=== PATIENT | male | born 1955 | race Two or more races ===

== ENCOUNTER 2023-06-26 12:20 | Outpatient (AMB) | payer OTHER, SELFPAY ==
--- NOTE | 2023-06-26 12:21 | MHC.PC.OV ---
Vital Signs 06/26/23 12:25 Height 5 ft 7 in Weight 171 lb 4 oz BMI 26.8 BP 124/68 Blood Pressure Location Rt brachial Position Sitting Pulse 76 Pulse Source Pulse Oximeter Pulse Oximetry (%) 96 Oxygen Delivery Method Room Air Intake Visit Reasons: Est. Care/HTN Intake Note: Pt is here today to est care HTN Pt rosario had colonscopy at [facility] Allergies No Known Allergies Allergy (Verified 06/26/23 12:44) Medication List - Last Reconciled 06/26/23 by MARLIN Aguila No Known Home Meds Tobacco use date assessed: 06/26/23 Fall risk assessment: No Falls in past year Last assessed Fall Risk: 06/26/23 Dental Screening Dental Screen Date: 06/26/23 Did you have a dental visit in the last 12 months?: Yes Did you have a dental problem in the last 6 months where you did not have access to dental care?: No Was dental information given to patient?: Patient has dentist HPI HPI Comments History of Present Illness Details Patient is a 67-year-old male here to establish care. He has a past medical history significant for prediabetes, obstructive sleep apnea, BPH, hyperlipidemia. He is due for shingles vaccine. Patient is due for the Prevnar 20 PNA vaccine, declining at this time. Patient states that during the cold months he notices that his toes on both feet sometimes get really cold and appear to be purple. Patient denies tingling or numbness. Denies pain but states that he feels like his hands and feet are often cold. States that when he goes to [place] the condition gets better. Has not tried any medications for this issue. [facility] Medical History Prediabetes Social History Housing: House Patient Tobacco Use Status: Never used Tobacco e-Cigarette/Vaping Use: Never Used service: No Current occupational status: employed Cognitive needs: No Hearing needs: No Vision needs: No Questionnaire PHQ-9 Over the last 2 weeks, how often have you been bothered by any of the following problems? 1. Little interest or pleasure in doing things: not at all 2. Feeling down, depressed, or hopeless: not at all 3. Trouble falling or staying asleep, or sleeping too much: not at all 4. Feeling tired or having little energy: not at all 5. Poor appetite or overeating: not at all 6. Feeling bad about yourself - or that you are a failure or have let yourself or your family down: not at all 7. Trouble concentrating on things, such as reading the newspaper or watching television: not at all 8. Moving or speaking so slowly that other people could have noticed. Or the opposite - being so fidgety or restless that you have been moving around a lot more than usual: not at all 9. Thoughts that you would be better off or of hurting yourself in some way: not at all Total score: 0 Depression Screening Interpretation: Negative Depression Screening Done: Yes 49082 - PHQ-9 Billing: Yes Source: Developed by Drs. Clint Hunt, April Tomas, Yung Wade and colleagues, with an educational myla from [employer]. Thrive Questionnaire Date Thrive assessed: 06/26/23 I am a: Patient What is your living situation today?: I have a steady place to live Within the past 12 months, did the food you bought not last and you didn't have the money to get more?: Never true Within the past 12 months, did you worry whether your food would run out before you got money to buy more?: Never true Do you have trouble paying for medicines?: No Do you have trouble getting transportation to medical appointments?: No Do you have trouble paying your heating and electricity bill?: No Do you have trouble taking care of your child, family member or friend?: No Do you have trouble with day-to-day activities such as bathing, preparing meals, shopping, managing finances, etc.?: No Are you currently unemployed and looking for a job?: No Are you interested in more education?: No Please select the resources that you would like help with: None Currently or been in a relationship where the following occur: no concerns reported THRIVE Score: 0 AMBER-7 AMB Questionnaire AMBER-7 Date AMBER - 7 assessed: 06/26/23 Feeling nervous, anxious, or on edge: 0 = Not at all Not being able to stop or control worryin = Not at all Worrying too much about different things: 0 = Not at all Trouble relaxin = Not at all Being so restless that it is hard to sit still: 0 = Not at all Becoming easily annoyed or irritable: 0 = Not at all Feeling afraid as if something awful might happen: 0 = Not at all Total AMBER-7 score (0-4 normal; 5-9 mild; 10-14 moderate; 15-21 severe): 0 Source: Developed by Drs. Clint Hunt, April Toams, Yung Wade and colleagues, with an educational myla from [employer]. AMBER-7 Assessment Billing AMBER-7 Assessment Tool: AMBER-7 Assessment 92362 Review of Systems Const Details: Constitutional : No Weight loss, No Fever, No Chills, No Fatigue, No Malaise Eyes: No Eye Pain, No Swelling, No Redness Cardiovascular : No Chest Pain, No SOB, No Dyspnea on Exertion, No Orthopnea, No Edema, No Palpitations Respiratory : No Cough, No Sputum, No Wheezing Gastrointestinal : No Nausea, No Vomiting, No Diarrhea, No Constipation, No abdominal Pain, No Hematochezia, No Melena Genitourinary : Admits occasional nocturia. Admits erectile dysfunction. Musculoskeletal : No joint pain, No Myalgias, No Joint Swelling Skin : Admits skin on bilateral toes can turn purple in color and feel cold. Neuro : No Weakness, No Numbness, No Dizziness, No Headache Psych : No Anxiety/Panic, No Depression Heme/Lymph: No Bruising, No Bleeding,No Lymphadenopathy Endocrine : No Polyuria, No Polydipsia All other systems reviewed and are negative Physical exam (Primary Care) Vital Signs: Last Vital Signs Pulse 76 06/26/23 12:25 BP 124/68 06/26/23 12:25 Pulse Ox 96 06/26/23 12:25 Oxygen Delivery Method Room Air 06/26/23 12:25 Care Plan Goal for BP management: Vital signs reviewed stable BMI result Body Mass Index 26.8 Tobacco/Smoking Status: Tobacco use Status Tobacco use date assessed 06/26/23 06/26/23 12:24 Patient Tobacco Use Status Never used Tobacco 06/26/23 12:27 e-Cigarette/Vaping Use Never Used 06/26/23 12:27 PHQ-9: PHQ-9 Score PHQ-9: Total score 0 06/26/23 13:37 Depression Screening Interpretation: Negative Thrive Assessment: Date of Thrive Assessment Date Thrive assessed 06/26/23 06/26/23 13:37 Currently or been in a relationship where the following occur: no concerns reported Const Other: Appearance: Alert.? Oriented X3.? No acute distress.? Head: Normocephalic. Patient has tender subcutaneous inflammatory nodule. Appears to have white head. ENT: Pharynx normal. TM not visible due to cerumen impaction. ?Post ear lavage, TMs intact and pearly seals bilaterally. CVS: Normal heart rate and rhythm.? Pulses normal.? Respiratory: No respiratory distress.? Breath sounds normal.? Skin: Patient has cold fingers and tones. Third toe appears to have purple discoloration on left foot.? Extremities: No lower extremity edema.? No calf ttp. 5/5 strength to bilateral upper and lower extremities Back: No midline tenderness, no C-spine tenderness, full range of motion, no CVA tenderness bilaterally Neuro: Oriented X 3.? No motor deficit.? No sensory deficit. CN 2-12 intact Office Procedures Cerumen Removal From which ear canal was the cerumen removed: bilateral Removal: irrigation Notes: patient tolerated procedure well [id number] Irrigation/Lavage Assessment and Plan Assessment & Plan (1) Erectile dysfunction: Comment: Will prescribed sildenafil to be taken as directed. Will order testosterone. Patient has been educated on side effects of the medication Code(s): N52.9 - Male erectile dysfunction, unspecified Qualifiers: Erectile dysfunction type: unspecified Qualified Code(s): N52.9 - Male erectile dysfunction, unspecified (2) Hidradenitis suppurativa: Comment: Patient has subcutaneous nodule of the scalp that is tender. Patient states he has history of the same happening, takes a while for to clear up. Will prescribe patient doxycycline to be taken as directed Code(s): L73.2 - Hidradenitis suppurativa (3) Raynauds phenomenon: Comment: Patient educated on ways to keep his feet warm. Can utilize [id number] foot warmer, educated not to place directly over skin. Will refer condition worsens. Code(s): I73.00 - Raynaud's syndrome without gangrene Qualifiers: Raynaud?s-associated gangrene presence: without gangrene Qualified Code(s): I73.00 - Raynaud's syndrome without gangrene Plan Follow-up in 3 months with physical exam. Orders: Orders Vitamin B6 Today Z13.21 - Encounter for screening for nutritional disorder UA CC w/rflx Micro + Cult Today Z13.89 - Encounter for screening for other disorder Lipid Panel Today Z13.220 - Encounter for screening for lipoid disorders Hemoglobin A1c Today R73.03 - Prediabetes Testosterone, Free/Total Today N52.9 - Male erectile dysfunction, unspecified Vitamin D 25-OH (D2 and D3) Today Z13.21 - Encounter for screening for nutritional disorder Vitamin B12 Today Z13.21 - Encounter for screening for nutritional disorder TSH reflex Free T4 Today Z13.29 - Encounter for screening for other suspected endocrine disorder PSA,Total (Free>4and<10) Today Z12.5 - Encounter for screening for malignant neoplasm of prostate Comprehensive Met. Panel Today Z91.89 - Other specified personal risk factors, not elsewhere classified Complete Blood Count Auto Diff Today Z13.0 - Encounter for screening for diseases of the blood and blood-forming organs and certain disorders involving the immune mechanism Medications: New doxycycline hyclate 100 mg PO DAILY 10 caps 0RF sildenafil administer 30 minutes to 4 hours before activity 50 mg PO DAILY PRN 10 tabs 0RF sexual activity Coding Level of Care Code New Pt Level 3 (33715) Diagnoses Erectile dysfunction, unspecified erectile dysfunction type N52.9 Erectile dysfunction type: unspecified Hidradenitis suppurativa L73.2 Raynaud's phenomenon without gangrene I73.00 Raynaud?s-associated gangrene presence: without gangrene CPT Codes Office Procedure - CPT: 29656-Jtx Irrigation/Lavage ([id number]) Additional Codes AMBER-7 Assessment Billing - AMBER-7 Assessment Tool: AMBER-7 Assessment 37819 ([id number]) Time Spent (min) 35
[2023-06-26 12:25] VITALS: BP 124/68; PULSE 76; O2SAT 96; BMI 26.8
== END 2023-06-26 15:21 | disposition home or self-care (01) ==
PROVIDERS: PCP Internal Medicine; Visit Provider Nurse Practitioner Primary Care
DX: H61.23 Impacted cerumen, bilateral (principal)
CPT/HCPCS: 69209; 99203

== ENCOUNTER 2023-08-04 09:04 | Outpatient (REF) | payer OTHER, SELFPAY ==
[2023-08-04 10:12] LABS: MANUAL DIFF FLAG NO
[2023-08-04 10:26] LABS: Estimated Average Glucose 105 mg/dL; Hemoglobin A1c % 5.3 % (<6.0)
[2023-08-04 10:28] LABS: Basophils Absolute Auto 0.1 X10*3/uL (0.0-0.2); Basophils Percent Auto 1.1 % (0-2); Eosinophils Absolute Auto 0.1 X10*3/uL (0.0-0.4); Eosinophils Percent Auto 0.7 % (0-4); Hematocrit 46.4 % (42.0-52.0); Hemoglobin 15.9 g/dl (14.0-18.0); Imm Gran Abs Auto 0.03 X10*3/uL (0.00-0.03); Imm Gran Pct Auto 0.4 % (0.0-0.4); Lymphocytes Absolute Auto 2.8 X10*3/uL (1.2-4.9); Lymphocytes Percent Auto 39.5 % (20-40); Mean Corpuscular HGB Conc 34.3 g/dl (31.0-36.0); Mean Corpuscular Hemoglobin 30.2 pg (27.0-33.0); Mean Platelet Volume 11.4 fL (9.4-12.4); Monocytes Absolute Auto 0.5 X10*3/uL (0.1-1.2); Monocytes Percent Auto 7.2 % (2-11); Neutrophils Absolute Auto 3.6 x10*3/uL (2.0-8.3); Neutrophils Percent Auto 51.1 % (45-73); Platelet Count 272 X10*3/uL (160-400); Red Blood Count 5.27 X10*6/uL (4.60-5.80)
[2023-08-04 10:39] LABS: Alanine Aminotransferase 23 U/L (0-40); Albumin Level 4.2 g/dL (3.5-5.0); Alkaline Phosphatase 97 U/L (39-117); Anion Gap 10 (12-20); Aspartate Amino Transferase 26 U/L (5-37); Blood Urea Nitrogen 19 mg/dL (9-16); Calcium 9.2 mg/dL (8.4-10.2); Carbon Dioxide 27 mmol/L (22-29); Chloride 107 mmol/L (96-108); Cholesterol 281 mg/dL (<200); Estimated Glomerular Filt Rate > 60; Glucose Random 94 mg/dL (60-115); HDL Cholesterol 51 mg/dL (>40); LDL Cholesterol Calculated 203 mg/dL (<100); Potassium 4.2 mmol/L (3.3-5.1); Sodium 140 mmol/L (135-145); Total Protein 7.4 g/dL (6.5-8.0); Triglycerides 136 mg/dL (<150)
[2023-08-04 10:56] LABS: Appearance Urine Clear; Color Urine Yellow; Glucose Urine UA Negative (Negative); Leukocyte Esterase Urine Negative (Negative); Nitrite Urine Negative (Negative); PH 5.5 (5.0-9.0); Specific Gravity - Urine 1.025 (1.005-1.025); Urine Blood Negative (Negative); Urine Ketones Negative (Negative); Urine Protein Negative (Neg-Trace)
[2023-08-04 10:59] LABS: TSH reflex Free T4 2.27 uIU/mL (0.32-4.0)
[2023-08-04 11:00] LABS: PSA,Total (Free>4and<10) 1.27 ng/mL (0.00-4.00)
[2023-08-04 11:07] LABS: Vitamin B12 657 pg/mL (200-900)
[2023-08-07 16:02] LABS: Vitamin D 25-OH, D2 <4 ng/mL; Vitamin D 25-OH, D3 19 ng/mL; Vitamin D 25-OH, Total 19 ng/mL (30-100)
[2023-08-08 16:28] LABS: Vitamin B6 8.9 ng/mL (2.1-21.7)
[2023-08-10 16:34] LABS: Testosterone, Free 80.7 pg/mL (35.0-155.0); Testosterone, Total 907 ng/dL (250-1100)
== END 2023-08-04 09:05 | disposition home or self-care (01) ==
LOC: HO.HMGCLDS 09:04
PROVIDERS: Visit Provider Nurse Practitioner Primary Care
DX: Z12.5 Encounter for screening for malignant neoplasm of prostate (principal); Z13.220 Encounter for screening for lipoid disorders; Z13.0 Encounter for screening for diseases of the blood and blood-forming organs and certain disorders involving the immune mechanism; Z13.29 Encounter for screening for other suspected endocrine disorder; Z13.21 Encounter for screening for nutritional disorder; Z13.89 Encounter for screening for other disorder; N52.9 Male erectile dysfunction, unspecified; Z91.89 Other specified personal risk factors, not elsewhere classified; R73.03 Prediabetes
CPT/HCPCS: 36415; 80053; 80061; 81003; 82306; 82607; 83036; 84153; 84207; 84402; 84403; 84443; 85025

== ENCOUNTER 2023-09-24 12:10 | Outpatient (AMB) | payer OTHER, SELFPAY ==
--- NOTE | 2023-09-24 12:12 | A.OFFPC_ITS ---
Vital Signs 09/24/23 12:13 Height 5 ft 7 in Weight 171 lb BMI 26.8 BP 122/62 Blood Pressure Location Rt brachial Position Sitting Pulse 93 Pulse Source Pulse Oximeter Pulse Oximetry (%) 96 Oxygen Delivery Method Room Air Intake Visit Reasons: Annual PE Intake Note: Pt is here today for his PE Allergies No Known Allergies Allergy (Verified 09/24/23 12:35) Medication List - Last Reconciled 09/24/23 by MARLIN Aguila No Known Home Meds Tobacco use date assessed: 09/24/23 Fall risk assessment: No Falls in past year Last assessed Fall Risk: 09/24/23 Dental Screening Dental Screen Date: 09/24/23 Did you have a dental visit in the last 12 months?: Yes Did you have a dental problem in the last 6 months where you did not have access to dental care?: No Was dental information given to patient?: Patient has dentist HPI HPI Comments History of Present Illness Details Patient is a 68-year-old male in today for his physical exam. Patient is due for Prevnar 20 vaccine, will get today. Patient is due this year for colonoscopy will refer. He has a past medical history significant: Hyperlipidemia-patient has discontinued his atorvastatin 20 mg p.o. daily. States he would like to bring cholesterol down with diet and exercise only. He does not like to take medication. Will redraw cholesterol levels in 2 months. Hydradentitis Suppurativa- Controlled and diminished after one round of Doxycycline. Erectile dysfunction-controlled. Patient not utilizing medication for this at this time. 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 States that the pain is worse in the morning but gets progressively better during the day. [facility] Medical History Prediabetes Family History Brother Substance use disorder Social History Housing: House Patient Tobacco Use Status: Never used Tobacco e-Cigarette/Vaping Use: Never Used service: No Current occupational status: employed Cognitive needs: No Hearing needs: No Vision needs: Yes Questionnaire PHQ-9 Over the last 2 weeks, how often have you been bothered by any of the following problems? 01409 - PHQ-9 Billing: Patient declined-do not bill Source: Developed by Drs. Clint Hunt, Yung Simpson and colleagues, with an educational myla from [employer]. Thrive Questionnaire Date Thrive assessed: 06/26/23 AMBER-7 AMB Questionnaire AMBER-7 Date AMBER - 7 assessed: 06/26/23 Source: Developed by Drs. Clint Hunt, Yung Simpson and colleagues, with an educational myla from [employer]. AMBER-7 Assessment Billing AMBER-7 Assessment Tool: pt declined-do not bill Review of Systems Const All systems reviewed & are unremarkable except as noted in HPI and below Physical exam (Primary Care) Vital Signs: Last Vital Signs Pulse 93 09/24/23 12:13 BP 122/62 09/24/23 12:13 Pulse Ox 96 09/24/23 12:13 Oxygen Delivery Method Room Air 09/24/23 12:13 Care Plan Goal for BP management: Blood pressure controlled. BMI result Body Mass Index 26.8 Tobacco/Smoking Status: Tobacco use Status Tobacco use date assessed 09/24/23 09/24/23 12:15 Patient Tobacco Use Status Never used Tobacco 09/24/23 12:15 e-Cigarette/Vaping Use Never Used 09/24/23 12:15 Thrive Assessment: Date of Thrive Assessment Date Thrive assessed 06/26/23 09/24/23 12:15 Forms completed: [facility] Time spent: 1-15 minutes, not on file Const Other: Appearance: Alert.? Oriented X3.? No acute distress.? Head: Normocephalic, atraumatic. Eyes: Pupils equal, round and reactive to light.?EOMI, Sclera white. ENT: Pharynx normal.?TM intact and pearly seals. Neck: Normal inspection.? Neck supple.?Full ROM. CVS: Normal heart rate and rhythm.? Pulses normal.? Respiratory: No respiratory distress.? Breath sounds normal.? Abdomen: Soft and nontender.? Skin: Skin warm and dry.? Normal skin color.? Normal skin turgor.? Extremities: No lower extremity edema.? No calf ttp. 5/5 strength to bilateral upper and lower extremities. Back: No midline tenderness, no C-spine tenderness, full range of motion, no CVA tenderness bilaterally Neuro: Oriented X 3.? No motor deficit.? No sensory deficit. CN 2-12 intact Immunizations pneumoc 20-manny conj-dip cr(PF) 0.5 mL IM syringe Performing Provider: MARLIN Aguila Performing Location: [facility] Administered by: MARTHA Romano on 09/24/23 13:01 Dose Route Admin Location Dispensed Lot Number Expiration Date NDC Disk Recordist 0.5 mL IM Left Deltoid 0.5 mL [id number] 01/02/25 5772-1780-88 [id number] VIS Given Date VIS Provided VIS Publication Date 09/24/23 Single Vaccine 21 Eligibility Eligibility Date Funding Source Not VFC Eligible 09/24/23 Private Results Reviewed Results Reviewed: Sodium 140 135-145 mmol/L Potassium 4.2 3.3-5.1 mmol/L CL 107 96-108 mmol/L CO2 27 22-29 mmol/L Gap 10 L 12-20 BUN 19 H 9-16 mg/dL Creat 0.93 0.5-1.4 mg/dL EGFR > 60 NOTE: For -[place]inames[place] individuals, multiply the result by 1.210. Chronic Kidney Disease: Estimated GFR < 60 mL/min/1.73m2 Severe Kidney Disease: Estimated GFR < 15 mL/min/1.73m2 Glucose, Random 94 60-115 mg/dL CA 9.2 8.4-10.2 mg/dL Total Bili 1.0 0.0-1.0 mg/dL AST (GOT) 26 5-37 U/L ALT (GPT) 23 0-40 U/L Protein, Total 7.4 6.5-8.0 g/dL Alb 4.2 3.5-5.0 g/dL Triglyceride 136 <150 mg/dL Desirable Triglyceride: less than 150 mg/dL Borderline High Triglyceride 150-199 mg/dL High Triglyceride: 200-499 mg/dL Very High Triglyceride: greater than or equal to 5OO mg/dL Cholesterol 281 H <200 mg/dL Desirable Cholesterol: less than 200 mg/dL Borderline High Cholesterol: 200-239 mg/dL High Cholesterol: greater than 239 mg/dL LDL Calculated 203 H <100 mg/dL Desirable LDL: less than 100 mg/dL Near Optimal/Above Optimal LDL: 110-129 mg/dL Borderline High LDL: 130-159 mg/dL High LDL: 160-189 mg/dL Very High LDL: greater than or equal to 190 mg/dL HDL 51 >40 mg/dL Desirable HDL: greater than 40 mg/dL Note: This HDL assay may give artificially low results in patients with liver disease. Alk Phos 97 39-117 U/L TSH 2.27 0.32-4.0 uIU/mL Assessment and Plan Assessment & Plan (1) Encounter for routine adult physical exam with abnormal findings: Comment: Will draw labs in 2 months including lipid panel Code(s): Z00.01 - Encounter for general adult medical examination with abnormal findings (2) Osteoarthritis: Comment: Patient will be given diclofenac gel to be administered as prescribed. Code(s): M19.90 - Unspecified osteoarthritis, unspecified site Qualifiers: Osteoarthritis location: elbow Osteoarthritis type: primary Laterality: bilateral Qualified Code(s): M19.021 - Primary osteoarthritis, right elbow; M19.022 - Primary osteoarthritis, left elbow (3) Hyperlipidemia: Comment: Patient has discontinued and refuses to take atorvastatin at this time. Patient has agreed to try fish oil supplement. He is currently on a strict diet and exercise routine. Will redraw lipid panel in 2 months Code(s): E78.5 - Hyperlipidemia, unspecified Qualifiers: Hyperlipidemia type: unspecified Qualified Code(s): E78.5 - Hyperlipidemia, unspecified Plan Will follow-up in 3 months Orders: Orders Lipid Panel 2 Months Z13.220 - Encounter for screening for lipoid disorders Pneumococcal 20 Immunization Today Z23 - Encounter for immunization Referrals Gastroenterology Referral Z12.11 - Encounter for screening for malignant neoplasm of colon Medications: New diclofenac sodium 1% (Aleve (diclofenac)) apply to single elbow, wrist or hand; for hand includes palm/fingers/back of hand 2 grams topical QID 100 grams 0RF Coding Level of Care Code Est Pt Prev Care >65y(25208) Diagnoses Encounter for routine adult physical exam with abnormal findings Z00.01 Primary osteoarthritis of both elbows M19.021; M19.022 Osteoarthritis location: elbow Osteoarthritis type: primary Laterality: bilateral Hyperlipidemia, unspecified hyperlipidemia type E78.5 Hyperlipidemia type: unspecified Additional Codes Vital Signs *Quality* - Time spent: 1-15 minutes, not on file ([id number]) Time Spent (min) 32
[2023-09-24 12:13] VITALS: BP 122/62; PULSE 93; O2SAT 96; BMI 26.8
== END 2023-09-24 15:40 | disposition home or self-care (01) ==
PROVIDERS: PCP Nurse Practitioner Primary Care; Visit Provider Nurse Practitioner Primary Care
DX: Z00.00 Encounter for general adult medical examination without abnormal findings (principal); M19.021 Primary osteoarthritis, right elbow; M19.022 Primary osteoarthritis, left elbow; E78.5 Hyperlipidemia, unspecified
CPT/HCPCS: 1124F; 90471; 90677; 99397

== ENCOUNTER 2023-11-03 11:56 | Outpatient (AMB) | payer OTHER, SELFPAY ==
--- NOTE | 2023-11-03 12:01 | MHC.PC.OV ---
Vital Signs 11/03/23 12:03 Height 5 ft 7 in Weight 169 lb BMI 26.5 BP 128/70 Blood Pressure Location Rt brachial Position Sitting Pulse 65 Pulse Source Pulse Oximeter Pulse Oximetry (%) 97 Oxygen Delivery Method Room Air Intake Visit Reasons: follow up per jl Intake Note: pt is here for f/u appt Allergies No Known Allergies Allergy (Verified 11/03/23 12:02) Medication List - Last Reconciled 11/03/23 by MARLIN Aguila cholecalciferol (vitamin D3) 50 mcg PO DAILY diclofenac sodium 1% (Aleve (diclofenac)) 2 grams topical QID sildenafil 50 mg PO DAILY PRN Tobacco use date assessed: 11/03/23 Dental Screening Dental Screen Date: 09/24/23 HPI HPI Comments History of Present Illness Details Patient is a 68-year-old male in today for follow-up with vitamin-D deficiency and hyperlipidemia. Patient has been utilizing vitamin D3 2000 units for the past 2-3 months. Will redraw levels. Patient had elevated cholesterol and triglyceride levels, has refused atorvastatin and has been utilizing fish oil supplement. Will redraw lipid panel as well. Patient has no other additional complaints. [facility] Medical History (Updated 11/03/23 @ 12:35 by MARLIN Aguila) Prediabetes Surgical History No pertinent past surgical history Family History Brother Substance use disorder Social History Housing: House Patient Tobacco Use Status: Never used Tobacco e-Cigarette/Vaping Use: Never Used service: No Current occupational status: employed Cognitive needs: No Hearing needs: No Vision needs: Yes Questionnaire Thrive Questionnaire Date Thrive assessed: 06/26/23 AMBER-7 AMB Questionnaire AMBER-7 Date AMBER - 7 assessed: 06/26/23 Source: Developed by Drs. Clint Hunt, April Tomas, Yung Wade and colleagues, with an educational myla from [employer]. Review of Systems Const All systems reviewed & are unremarkable except as noted in HPI and below Physical exam (Primary Care) Vital Signs: Last Vital Signs Pulse 65 11/03/23 12:03 BP 128/70 11/03/23 12:03 Pulse Ox 97 11/03/23 12:03 Oxygen Delivery Method Room Air 11/03/23 12:03 BMI result Body Mass Index 26.5 Tobacco/Smoking Status: Tobacco use Status Tobacco use date assessed 11/03/23 11/03/23 12:03 Patient Tobacco Use Status Never used Tobacco 11/03/23 12:03 e-Cigarette/Vaping Use Never Used 11/03/23 12:03 Thrive Assessment: Date of Thrive Assessment Date Thrive assessed 06/26/23 11/03/23 12:03 Const Other: Appearance: Alert.? Oriented X3.? No acute distress.? Head: Normocephalic, atraumatic, no step-offs or deformities CVS: Normal heart rate and rhythm.? Pulses normal.? Respiratory: No respiratory distress.? Breath sounds normal.? Neuro: Oriented X 3.? No motor deficit.? No sensory deficit. CN 2-12 intact Assessment and Plan Assessment & Plan (1) Hyperlipidemia: Comment: Patient has discontinued and refuses to take atorvastatin at this time. Patient has agreed to try fish oil supplement. He is currently on a strict diet and exercise routine. Will redraw lipid panel. Code(s): E78.5 - Hyperlipidemia, unspecified Qualifiers: Hyperlipidemia type: unspecified Qualified Code(s): E78.5 - Hyperlipidemia, unspecified (2) Vitamin D deficiency: Comment: Patient is taking vitamin D3 2000 units per day. Will redraw vitamin-D today. Code(s): E55.9 - Vitamin D deficiency, unspecified Plan will follow up with labs. Orders: Orders UA CC w/rflx Micro + Cult Today Z13.89 - Encounter for screening for other disorder Lipid Panel Today E78.5 - Hyperlipidemia, unspecified Complete Blood Count Auto Diff Today Z13.0 - Encounter for screening for diseases of the blood and blood-forming organs and certain disorders involving the immune mechanism Comprehensive Met. Panel Today Z91.89 - Other specified personal risk factors, not elsewhere classified Vitamin D 25-OH (D2 and D3) Today E55.9 - Vitamin D deficiency, unspecified Vitamin C Today Z13.21 - Encounter for screening for nutritional disorder Medications: New sildenafil administer 30 minutes to 4 hours before activity 50 mg PO DAILY PRN 8 tabs 0RF sexual activity Refilled diclofenac sodium 1% (Aleve (diclofenac)) apply to single elbow, wrist or hand; for hand includes palm/fingers/back of hand 2 grams topical QID 100 grams 0RF Coding Level of Care Code Est Pt Level 3 (05848) Diagnoses Hyperlipidemia, unspecified hyperlipidemia type E78.5 Hyperlipidemia type: unspecified Vitamin D deficiency E55.9 Time Spent (min) 28
[2023-11-03 12:03] VITALS: BP 128/70; PULSE 65; O2SAT 97; BMI 26.5
== END 2023-11-03 15:21 | disposition home or self-care (01) ==
PROVIDERS: PCP Nurse Practitioner Primary Care; Visit Provider Nurse Practitioner Primary Care
DX: E78.5 Hyperlipidemia, unspecified (principal); E55.9 Vitamin D deficiency, unspecified
CPT/HCPCS: 99213

== ENCOUNTER 2023-11-27 06:01 | Outpatient (REF) | payer OTHER, SELFPAY ==
[2023-11-27 10:56] LABS: MANUAL DIFF FLAG NO
[2023-11-27 10:57] LABS: Appearance Urine Turbid; Color Urine Yellow; Glucose Urine UA Negative (Negative); Leukocyte Esterase Urine Negative (Negative); Nitrite Urine Negative (Negative); Specific Gravity - Urine 1.025 (1.005-1.025); Urine Blood Negative (Negative); Urine Ketones Negative (Negative); Urine Protein Negative (Neg-Trace)
[2023-11-27 11:18] LABS: Basophils Absolute Auto 0.1 X10*3/uL (0.0-0.2); Basophils Percent Auto 1.2 % (0-2); Eosinophils Absolute Auto 0.1 X10*3/uL (0.0-0.4); Eosinophils Percent Auto 1.3 % (0-4); Hematocrit 45.1 % (42.0-52.0); Hemoglobin 15.2 g/dl (14.0-18.0); Imm Gran Abs Auto 0.03 X10*3/uL (0.00-0.03); Imm Gran Pct Auto 0.5 % (0.0-0.4); Lymphocytes Absolute Auto 2.3 X10*3/uL (1.2-4.9); Lymphocytes Percent Auto 37.7 % (20-40); Mean Corpuscular HGB Conc 33.7 g/dl (31.0-36.0); Mean Corpuscular Hemoglobin 30.5 pg (27.0-33.0); Mean Corpuscular Volume 90.4 fL (80.0-98.0); Mean Platelet Volume 11.9 fL (9.4-12.4); Monocytes Absolute Auto 0.5 X10*3/uL (0.1-1.2); Monocytes Percent Auto 8.5 % (2-11); Neutrophils Absolute Auto 3.1 x10*3/uL (2.0-8.3); Neutrophils Percent Auto 50.8 % (45-73); Platelet Count 275 X10*3/uL (160-400); Red Blood Count 4.99 X10*6/uL (4.60-5.80); Red Cell Distribution Width 15.8 % (11.0-16.0)
[2023-11-27 11:24] LABS: Alanine Aminotransferase 20 U/L (0-40); Alkaline Phosphatase 92 U/L (39-117); Anion Gap 11 (12-20); Aspartate Amino Transferase 28 U/L (5-37); Bilirubin Total 0.7 mg/dL (0.0-1.0); Blood Urea Nitrogen 24 mg/dL (9-16); Calcium 9.1 mg/dL (8.4-10.2); Carbon Dioxide 28 mmol/L (22-29); Chloride 107 mmol/L (96-108); Cholesterol 255 mg/dL (<200); Estimated Glomerular Filt Rate > 60; Glucose Random 93 mg/dL (60-115); HDL Cholesterol 50 mg/dL (>40); LDL Cholesterol Calculated 188 mg/dL (<100); Potassium 4.2 mmol/L (3.3-5.1); Sodium 142 mmol/L (135-145); Total Protein 6.9 g/dL (6.5-8.0); Triglycerides 88 mg/dL (<150)
[2023-12-03 14:38] LABS: Vitamin D 25-OH, D2 <4 ng/mL; Vitamin D 25-OH, D3 30 ng/mL; Vitamin D 25-OH, Total 30 ng/mL (30-100)
== END 2023-11-27 06:02 | disposition home or self-care (01) ==
LOC: HO.HMGCLDS 06:01
PROVIDERS: Visit Provider Nurse Practitioner Primary Care
DX: Z13.0 Encounter for screening for diseases of the blood and blood-forming organs and certain disorders involving the immune mechanism (principal); E78.5 Hyperlipidemia, unspecified; Z91.89 Other specified personal risk factors, not elsewhere classified; E55.9 Vitamin D deficiency, unspecified; Z13.89 Encounter for screening for other disorder
CPT/HCPCS: 36415; 80053; 80061; 81003; 82306; 85025

== ENCOUNTER 2024-02-04 14:49 | Outpatient (AMB) | payer OTHER, SELFPAY ==
--- NOTE | 2024-02-04 14:54 | MHC.OFFWIV ---
Intake Vital Signs 02/04/24 14:59 Height 5 ft 7 in Weight 167 lb BMI 26.2 BP 150/90 H Blood Pressure Location Rt brachial Position Sitting Pulse 77 Pulse Source Pulse Oximeter Pulse Oximetry (%) 98 Oxygen Delivery Method Room Air Intake Visit Reasons: 1455, EP Heart palpitations Intake Note: Patient here for heart palpitations that have been going on for about 2 weeks. Patient Tobacco Use Status: Never used Tobacco Allergies No Known Allergies Allergy (Verified 02/04/24 14:58) Do you need a note to return to daycare/school/sports/work: No PFSH Medical History Prediabetes Surgical History No pertinent past surgical history Family History Brother Substance use disorder Social History Housing: House Patient Tobacco Use Status: Never used Tobacco e-Cigarette/Vaping Use: Never Used service: No Current occupational status: employed Cognitive needs: No Hearing needs: No Vision needs: Yes Physical Exam Vital Signs: Last Vital Signs Pulse 77 02/04/24 14:59 BP 150/90 H 02/04/24 14:59 Pulse Ox 98 02/04/24 14:59 Oxygen Delivery Method Room Air 02/04/24 14:59 BMI result Body Mass Index 26.2 Assessment & Plan Assessment & Plan Orders: Orders Complete Blood Count Auto Diff Today R00.2 - Palpitations AMB EKG-In Office 02/04/24 R00.2 - Palpitations Basic Metabolic Panel Today R00.2 - Palpitations TSH reflex Free T4 Today R00.2 - Palpitations Coding
[2024-02-04 14:59] VITALS: BP 150/90; PULSE 77; O2SAT 98; BMI 26.2
--- NOTE | 2024-02-04 15:02 | MHC.OFFWIV ---
Intake Vital Signs 02/04/24 14:59 Height 5 ft 7 in Weight 167 lb BMI 26.2 BP 150/90 H Blood Pressure Location Rt brachial Position Sitting Pulse 77 Pulse Source Pulse Oximeter Pulse Oximetry (%) 98 Oxygen Delivery Method Room Air Intake Visit Reasons: EP Heart palpitations Intake Note: 1455 - Pt c/o heart beating hard x 21/2 weeks. Pt denies any sob, chest pain, shoulder/arm pain/disc. Pt speaks in full sentences. Color pink warm and dry, craft. 02 sat 98% on r/a with hr - 83. Provider Angelina Lagunas is aware. Patient Tobacco Use Status: Never used Tobacco Allergies No Known Allergies Allergy (Verified 02/04/24 14:58) HPI EP Heart palpitations HPI Details This note is constructed using voice recognition software. While every effort has been made to ensure accuracy, forest pathology professor errors may have been included. The patient is a 68 year old male who presents to the clinic today with palpitations for the past 2 weeks. He denies chest pain, lightheadedness or dizziness, jaw pain, heart pain, diaphoresis, any recent tick bites. He reports that he is able to work out at the gym and does not have any symptoms with that. His symptoms are worse when he is at rest. He notes that he falls asleep quite frequently when he is unexpected 2. He notes that he wakes up feeling unrested. He wakes up frequently overnight. 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 He had a sleep study many years ago, however he does not know the results of the test and does not recall where he had the test. His primary care provider recently left the practice, so he is unsure whom he has for a primary care provider or if he has wanted all. [facility] Medical History Prediabetes Surgical History No pertinent past surgical history Family History Brother Substance use disorder Social History Housing: House Patient Tobacco Use Status: Never used Tobacco e-Cigarette/Vaping Use: Never Used service: No Current occupational status: employed Cognitive needs: No Hearing needs: No Vision needs: Yes Review of Systems Const All systems reviewed & are unremarkable except as noted in HPI and below Physical Exam Vital Signs: Last Vital Signs Pulse 77 02/04/24 14:59 BP 150/90 H 02/04/24 14:59 Pulse Ox 98 02/04/24 14:59 Oxygen Delivery Method Room Air 02/04/24 14:59 BMI result Body Mass Index 26.2 Const General: cooperative, healthy appearing, comfortable, no acute distress and alert Orientation/consciousness: patient oriented x3 Limitations: no limitations Neck Neck: Yes normal visual inspection, Yes full ROM, Yes no lymphadenopathy and Yes no JVD Carotids: no bruits Resp Effort & Inspection: normal respiratory effort and able to speak in complete sentences Auscultation: clear to auscultation bilaterally Cardio Jugular venous distension: no JVD Palpation: normal PMI Rate: regular rate Heart sounds: S1 normal heart sound present, S2 normal heart sound present, no click, no gallops, no murmurs and no rubs Skin General skin exam: no rashes or lesions noted, elasticity normal and turgor normal Neuro General: patient oriented x3 Psych Appearance: grossly normal Mental Status: mental status grossly normal Speech and movement: Normal speech and movement present Affect: normal affect Results Reviewed Results Reviewed: EKG appears normal sinus rhythm. No ST elevations or depressions. Assessment & Plan Assessment & Plan (1) Palpitations: Code(s): R00.2 - Palpitations Plan: Etiology unclear. In office examination reassuring. EKG appears normal sinus rhythm. Labs ordered to evaluate for contributing factors including infection, anemia, electrolyte abnormality, thyroid involvement. Advised patient to follow up with primary care provider for consideration of Holter monitor should symptoms persist, versus additionally working up for concern for sleep apnea. Advised ER with chest pain, palpitations that do not resolve, or worsening symptoms. Plan See above for full details and plan. Orders: Orders Complete Blood Count Auto Diff Today R00.2 - Palpitations AMB EKG-In Office Today R00.2 - Palpitations Basic Metabolic Panel Today R00.2 - Palpitations TSH reflex Free T4 Today R00.2 - Palpitations Coding Level of Care Code Est Pt Level 4 (29890) Diagnoses Palpitations R00.2
== END 2024-02-04 15:31 | disposition home or self-care (01) ==
PROVIDERS: PCP Nurse Practitioner Primary Care; Visit Provider Registered Nurse
DX: R00.2 Palpitations (principal)

== ENCOUNTER → 2024-02-04 14:49 | Outpatient (BNVA) | payer OTHER, SELFPAY | PROVIDERS: PCP Nurse Practitioner Primary Care | DX: R00.2 Palpitations (principal) | CPT/HCPCS: 99212 ==

== ENCOUNTER 2024-02-05 12:23 | Outpatient (REF) | payer OTHER, SELFPAY ==
[2024-02-05 16:12] LABS: MANUAL DIFF FLAG NO
[2024-02-05 16:19] LABS: Basophils Absolute Auto 0.1 X10*3/uL (0.0-0.2); Eosinophils Absolute Auto 0.1 X10*3/uL (0.0-0.4); Eosinophils Percent Auto 0.6 % (0-4); Hematocrit 45.7 % (42.0-52.0); Hemoglobin 15.3 g/dl (14.0-18.0); Imm Gran Abs Auto 0.03 X10*3/uL (0.00-0.03); Imm Gran Pct Auto 0.4 % (0.0-0.4); Lymphocytes Absolute Auto 2.7 X10*3/uL (1.2-4.9); Lymphocytes Percent Auto 32.3 % (20-40); Mean Corpuscular HGB Conc 33.5 g/dl (31.0-36.0); Mean Corpuscular Hemoglobin 30.6 pg (27.0-33.0); Mean Corpuscular Volume 91.4 fL (80.0-98.0); Mean Platelet Volume 11.7 fL (9.4-12.4); Monocytes Absolute Auto 0.6 X10*3/uL (0.1-1.2); Monocytes Percent Auto 7.1 % (2-11); Neutrophils Absolute Auto 4.9 x10*3/uL (2.0-8.3); Neutrophils Percent Auto 58.6 % (45-73); Platelet Count 266 X10*3/uL (160-400); Red Cell Distribution Width 15.6 % (11.0-16.0); White Blood Count 8.3 X10*3/uL (4.8-10.8)
[2024-02-05 16:31] LABS: Anion Gap 10 (12-20); Blood Urea Nitrogen 21 mg/dL (9-16); Calcium 9.4 mg/dL (8.4-10.2); Carbon Dioxide 28 mmol/L (22-29); Chloride 107 mmol/L (96-108); Estimated Glomerular Filt Rate > 60; Glucose Random 72 mg/dL (60-115); Potassium 4.2 mmol/L (3.3-5.1); Sodium 141 mmol/L (135-145)
[2024-02-05 17:48] LABS: TSH reflex Free T4 1.34 uIU/mL (0.32-4.0)
== END 2024-02-05 12:24 | disposition home or self-care (01) ==
LOC: HO.HMGCLDS 12:23
PROVIDERS: Visit Provider Registered Nurse
DX: R00.2 Palpitations (principal)
CPT/HCPCS: 36415; 80048; 84443; 85025

== ENCOUNTER 2024-03-02 13:51 | Outpatient (AMB) | payer OTHER, SELFPAY ==
[2024-03-02 13:54] VITALS: BP 134/80; PULSE 71; O2SAT 100; BMI 25.8
--- NOTE | 2024-03-02 13:54 | A.OFFPC_ITS ---
Vital Signs 03/02/24 13:54 Height 5 ft 7 in Weight 165 lb BMI 25.8 BP 134/80 Blood Pressure Location Lt brachial Position Sitting Pulse 71 Pulse Source Pulse Oximeter Pulse Oximetry (%) 100 Oxygen Delivery Method Room Air Intake Visit Reasons: transfer from [facility], ?sleep apnea Intake Note: Pt is here today for establish care visit from [facility]. Allergies No Known Allergies Allergy (Verified 03/02/24 13:57) Medication List - Last Reconciled 03/02/24 by Victorina Chris MD cholecalciferol (vitamin D3) 50 mcg PO DAILY diclofenac sodium 1% (Aleve (diclofenac)) 2 grams topical QID fish oil-dha-epa PO sildenafil 50 mg PO DAILY PRN Tobacco use date assessed: 03/02/24 Fall risk assessment: No Falls in past year Last assessed Fall Risk: 03/02/24 Dental Screening Dental Screen Date: 09/24/23 HPI transfer from [facility], ?sleep apnea HPI Details Patient presents reporting intermittent symptoms of palpitations worse when lying down at night, lasting a few seconds, occasionally waking patient up from sleep. He has been under lot of stress recently. Patient exercises at the gym 3 times a week and denies any exercise-induced palpitations chest pain or shortness or breath. His noticed patient having apnea episodes while sleeping. [facility] Medical History Prediabetes Surgical History No pertinent past surgical history Family History Brother Substance use disorder Social History Housing: House Patient Tobacco Use Status: Never used Tobacco e-Cigarette/Vaping Use: Never Used service: No Current occupational status: employed Cognitive needs: No Hearing needs: No Vision needs: Yes Questionnaire PHQ-9 Over the last 2 weeks, how often have you been bothered by any of the following problems? 1. Little interest or pleasure in doing things: not at all 2. Feeling down, depressed, or hopeless: not at all 3. Trouble falling or staying asleep, or sleeping too much: nearly every day 4. Feeling tired or having little energy: not at all 5. Poor appetite or overeating: not at all 6. Feeling bad about yourself - or that you are a failure or have let yourself or your family down: not at all 7. Trouble concentrating on things, such as reading the newspaper or watching television: not at all 8. Moving or speaking so slowly that other people could have noticed. Or the opposite - being so fidgety or restless that you have been moving around a lot more than usual: not at all 9. Thoughts that you would be better off or of hurting yourself in some way: not at all Total score: 3 Depression Screening Interpretation: Negative Depression Screening Done: Yes 72728 - PHQ-9 Billing: Yes Source: Developed by Drs. Clint Hunt, April Tomas, Yung Wade and colleagues, with an educational myla from [employer]. Thrive Questionnaire Date Thrive assessed: 03/02/24 I am a: Patient What is your living situation today?: I have a steady place to live Within the past 12 months, did the food you bought not last and you didn't have the money to get more?: Never true Within the past 12 months, did you worry whether your food would run out before you got money to buy more?: Never true Do you have trouble paying for medicines?: No Do you have trouble getting transportation to medical appointments?: No Do you have trouble paying your heating and electricity bill?: No Do you have trouble taking care of your child, family member or friend?: No Do you have trouble with day-to-day activities such as bathing, preparing meals, shopping, managing finances, etc.?: No Are you currently unemployed and looking for a job?: No Are you interested in more education?: No Please select the resources that you would like help with: None Currently or been in a relationship where the following occur: No concerns reported THRIVE Score: 0 AUDIT C Alcohol Use Questionnaire (AUDIT-C) 1. How often do you have a drink containing alcohol?: Never Total Score: 0 AMBER-7 AMB Questionnaire AMBER-7 Date AMBER - 7 assessed: 03/02/24 Feeling nervous, anxious, or on edge: 0 = Not at all Not being able to stop or control worryin = Not at all Worrying too much about different things: 0 = Not at all Trouble relaxin = Not at all Being so restless that it is hard to sit still: 0 = Not at all Becoming easily annoyed or irritable: 0 = Not at all Feeling afraid as if something awful might happen: 0 = Not at all Total AMBER-7 score (0-4 normal; 5-9 mild; 10-14 moderate; 15-21 severe): 0 Source: Developed by Drs. Clint Hunt, April Tomas, Yung Wade and colleagues, with an educational myla from [employer]. AMBER-7 Assessment Billing AMBER-7 Assessment Tool: AMBER-7 Assessment 74329 Review of Systems Const All systems reviewed & are unremarkable except as noted in HPI and below ENT Reports no additional complaints Card Reports no additional complaints Resp Reports no additional complaints GI Reports no additional complaints Reports no additional complaints Physical exam (Primary Care) Vital Signs: Last Vital Signs Pulse 71 03/02/24 13:54 BP 134/80 03/02/24 13:54 Pulse Ox 100 03/02/24 13:54 Oxygen Delivery Method Room Air 03/02/24 13:54 BMI result Body Mass Index 25.8 Tobacco/Smoking Status: Tobacco use Status Tobacco use date assessed 03/02/24 03/02/24 13:59 Patient Tobacco Use Status Never used Tobacco 03/02/24 13:54 e-Cigarette/Vaping Use Never Used 03/02/24 13:54 PHQ-9: PHQ-9 Score PHQ-9: Total score 3 03/02/24 13:59 Depression Screening Interpretation: Negative Thrive Assessment: Date of Thrive Assessment Date Thrive assessed 03/02/24 03/02/24 13:59 Currently or been in a relationship where the following occur: No concerns reported Const General: no acute distress HENMT Head: Yes normal to inspection Face and sinus: Yes normal facial exam Eyes General: appearance normal, both eyes and all related structures Neck Neck: Yes supple Resp Effort & Inspection: normal respiratory effort Auscultation: clear to auscultation bilaterally Cardio Rhythm: regular rhythm Heart sounds: S1 normal heart sound present and S2 normal heart sound present Coding Level of Care Code Est Pt Level 4 (75696) Diagnoses Palpitations R00.2 HTN (hypertension) I10 Hyperlipidemia, unspecified hyperlipidemia type E78.5 Hyperlipidemia type: unspecified Sleep apnea G47.30 Additional Codes AMBER-7 Assessment Billing - AMBER-7 Assessment Tool: AMBER-7 Assessment 29623 ([id number]) Assessment & Plan Assessment & Plan (1) Palpitations: Code(s): R00.2 - Palpitations Category: Medical Plan: Obtain 3 day Holter and echocardiogram stress management discussed with the patient (2) HTN (hypertension): Code(s): I10 - Essential (primary) hypertension Category: Medical Plan: Start 5 mg of lisinopril continue regular physical activity return for follow-up in 1 month (3) Hyperlipidemia: Comment: Patient has discontinued and refuses to take atorvastatin at this time. Patient has agreed to try fish oil supplement. He is currently on a strict diet and exercise routine. Will redraw lipid panel. Code(s): E78.5 - Hyperlipidemia, unspecified Category: Medical Qualifiers: Hyperlipidemia type: unspecified Qualified Code(s): E78.5 - Hyperlipidemia, unspecified Plan: Diet controlled check lipid profile in 1 month (4) Sleep apnea: Code(s): G47.30 - Sleep apnea, unspecified Category: Medical Plan: Obtain sleep study Orders: Orders ECG 3 day holter monitor Today R00.2 - Palpitations CA echo transthoracic complete Today I10 - Essential (primary) hypertension, R00.2 - Palpitations Comprehensive [place]. Panel Fast 1 Month E78.5 - Hyperlipidemia, unspecified, I10 - Essential (primary) hypertension RT home sleep study Today E78.5 - Hyperlipidemia, unspecified, I10 - Essential (primary) hypertension Lipid Panel 1 Month E78.5 - Hyperlipidemia, unspecified, I10 - Essential (primary) hypertension Medications: New lisinopril 5 mg PO DAILY 90 tabs 0RF
== END 2024-03-02 14:31 | disposition home or self-care (01) ==
LOC: HO.HMCC 13:52
PROVIDERS: PCP Nurse Practitioner Primary Care; Visit Provider Internal Medicine
DX: R00.2 Palpitations (principal); I10 Essential (primary) hypertension; E78.5 Hyperlipidemia, unspecified; G47.30 Sleep apnea, unspecified

== ENCOUNTER → 2024-03-02 13:51 | Outpatient (BNVA) | payer OTHER, SELFPAY | PROVIDERS: PCP Nurse Practitioner Primary Care; Visit Provider Internal Medicine | DX: R00.2 Palpitations (principal); E78.5 Hyperlipidemia, unspecified; I10 Essential (primary) hypertension; G47.30 Sleep apnea, unspecified | CPT/HCPCS: 96127; 99212 ==

== ENCOUNTER → 2024-03-29 13:53 | Outpatient (REF) | payer MEDICARE, SELFPAY ==
--- NOTE | 2024-03-29 13:56 | CA_ITS ---
Transthoracic Echocardiogram Patient (Last, First, Middle): Everett Beltran, Gender: Male Date of : 1955 Age: 68 Procedure Date: 03/29/2024 Procedure Type: Transthoracic Echocardiogram Location: OP Height: 170.18 cm Weight: 74.84 kg BSA: 1.86 m2 Heart Rate: 69 bpm BP: 134 / 76 mmHg Band Booker: SB Referring MD: Victorina Chris MD Symptoms: R00.2 - Palpitations and I10 hypertension Study Quality: Adequate ECG Rhythm: Sinus Conclusions: - The left ventricular systolic function is normal. The calculated ejection fraction is 63% by biplane method. - The basal inferior and basal inferolateral segments are hypokinetic. - No obvious valvular pathology seen on this study. Findings Left Ventricle Normal left ventricular cavity size. The left ventricular systolic function is normal. The calculated ejection fraction is 63% by biplane method. There is no evidence of regional wall motion abnormalities. Evidence suggests grade I (mild) diastolic dysfunction. There is mild septal asymmetric hypertrophy. Wall Motion Rest Echo Findings The basal inferior and basal inferolateral segments are hypokinetic. Right Ventricle Normal right ventricular cavity size and systolic function. Atria Both atria are normal in size. Aortic Valve There is a normal trileaflet aortic valve. There is no aortic valve stenosis. There is no aortic valve regurgitation. Mitral Valve The mitral valve appears normal. There is trace mitral valve regurgitation. There is no mitral valve stenosis. Pulmonic Valve The pulmonic valve is likely normal. Tricuspid Valve Normal tricuspid valve structure. There is trace tricuspid valve regurgitation. There is no evidence of pulmonary hypertension. Great Vessels The asc aorta is normal in size. Venous The inferior vena cava is normal in size and collapses greater than 50% with inspiration. Pericardium/Pleural There is no evidence of pericardial effusion. Prior Study Comparison No prior study available for comparison. Recommendations, Care & Conclusions No obvious valvular pathology seen on this study. Measurements 2D Linear Measurements IVSd: 1.07 0.6-0.9/0.6-1.0 cm LVIDd: 5.35 3.9-5.3/4.2-5.9 cm LVIDd Index: 2.88 2.4-3.2/2.2-3.1 cm/m2 LVIDs: 3.02 2.0-3.6 cm LVPWd: 0.70 0.7-1.1 cm LA Diam: 4.00 2.7-3.8/3.0-4.0 cm LAIDs Index: 2.15 1.5-2.3 cm/m2 LV Mass: 216.13 67-162/88-224 g LV Mass Index: 116.20 43-95/49-115 g/m2 LVOT Diam: 2.00 3.0+(-)1.3 cm 2D Systolic Function EF 4C: 62.90 >55% EF 2C: 64.40 >55% EF BiP: 62.70 >55% Mitral Valve MV Pk E: 0.84 MV PK A: 0.84 MV Decel Time: 238.00 E/A: 1.00 E'Lateral: 5.77 E'Medial: 4.57 E/E' Med: 18.40 E/E' Lat: 14.50 PHT: 70.00 MVA PHT: 3.14 Decel M[place]: 3.53 Aortic Valve AoV Pk Alfred: 1.28 AoV Pk Grad: 7.00 KACEY: 3.00 LVOT LVOT Pk Alfred: 1.21 LVOT Mn Alfred: 0.78 LVOT VTI: 0.24 LVOT Pk Grad: 6.00 LVOT Mn Grad: 3.00 LVOT Diam: 2.00 LVOT Area: 3.14 Diastolic Function MV Pk E: 0.84 MV Pk A: 0.84 E/A: 1.00 E'Medial: 4.57 E/E' Med: 18.40 E' Laterial: 5.77 E/E' Lat: 14.50 Right Ventricle TAPSE (mm): 20.70 TVS' Alfred: 14.80 Tricuspid Valve TR Pk Alfred: 2.40 TR Pk Grad: 23.00 RA Press: 3.00 RVSP: 26.00 Great Vessels Aorta Sinus of Valsalva: 3.80 2.0-3.5 cm Ao Asc: 3.20 2.1-3.4 cm Pulmonary Veins Pulm Vein S/D 1.40 Pulmonary Valve PV Pk Alfred: 1.05 Peak PV Grad: 4.00 Updated in Other Vendor System with Status of Final Lucas Wilkes MD electronically signed on 03/30/2024 11:19:47 AM with status of Final
--- NOTE | 2024-03-29 13:56 | HM_ITS ---
Conclusion: 1. Patient was monitored for total period of 3 days 2. Baseline was normal sinus rhythm with average heart of 76 beats per minute 3. No significant pauses noted 4. Frequent PVCs noted with total burden of 1.2%, mostly isolated 5. Patient marked 1 event correlated with sinus rhythm MTDD
== END ==
LOC: HO.CARD 13:53
PROVIDERS: PCP Internal Medicine; Visit Provider Internal Medicine
DX: R00.2 Palpitations (principal); I10 Essential (primary) hypertension
CPT/HCPCS: 93242; 93306

== ENCOUNTER → 2024-03-29 13:56 | Outpatient (BNV) | payer MEDICARE, SELFPAY | PROVIDERS: PCP Internal Medicine; Visit Provider Internal Medicine | DX: I49.3 Ventricular premature depolarization (principal) | CPT/HCPCS: 93244; 93306 ==

== ENCOUNTER 2024-04-08 10:50 | Outpatient (AMB) | payer OTHER, SELFPAY ==
--- NOTE | 2024-04-08 10:56 | A.OFFPC_ITS ---
Vital Signs 04/08/24 10:57 Height 5 ft 7 in Weight 168 lb BMI 26.3 BP 122/80 Blood Pressure Location Lt brachial Position Sitting Pulse 69 Pulse Source Pulse Oximeter Pulse Oximetry (%) 100 Oxygen Delivery Method Room Air Intake Visit Reasons: 1 month follow up Intake Note: Pt is here today for 1 month follow up visit. Allergies No Known Allergies Allergy (Verified 04/08/24 10:59) Medication List - Last Reconciled 04/08/24 by Victorina Chris MD cholecalciferol (vitamin D3) 50 mcg PO DAILY diclofenac sodium 1% (Aleve (diclofenac)) 2 grams topical QID fish oil-dha-epa PO lisinopril 5 mg PO DAILY sildenafil 50 mg PO DAILY PRN Tobacco use date assessed: 04/08/24 Dental Screening Dental Screen Date: 09/24/23 HPI 1 month follow up HPI Details Pt presents for f/u HTN, stable on Lisinopril. Patient has been exercising 5 times a week and denies chest pain shortness or breath or palpitations PFSH Medical History Prediabetes Surgical History No pertinent past surgical history Family History Brother Substance use disorder Social History Housing: House Patient Tobacco Use Status: Never used Tobacco e-Cigarette/Vaping Use: Never Used service: No Current occupational status: employed Cognitive needs: No Hearing needs: No Vision needs: Yes Questionnaire Thrive Questionnaire Date Thrive assessed: 03/02/24 I am a: Patient What is your living situation today?: I have a steady place to live Within the past 12 months, did the food you bought not last and you didn't have the money to get more?: Never true Within the past 12 months, did you worry whether your food would run out before you got money to buy more?: Never true Do you have trouble paying for medicines?: No Do you have trouble getting transportation to medical appointments?: No Do you have trouble paying your heating and electricity bill?: No Do you have trouble taking care of your child, family member or friend?: No Do you have trouble with day-to-day activities such as bathing, preparing meals, shopping, managing finances, etc.?: No Are you currently unemployed and looking for a job?: No Are you interested in more education?: No Please select the resources that you would like help with: None Currently or been in a relationship where the following occur: No concerns reported THRIVE Score: 0 AMBER-7 AMB Questionnaire AMBER-7 Date AMBER - 7 assessed: 03/02/24 Source: Developed by Drs. Clint Hunt, April Tomas, Yung Wade and colleagues, with an educational myla from [employer]. Review of Systems Const All systems reviewed & are unremarkable except as noted in HPI and below ENT Reports no additional complaints Card Reports no additional complaints Resp Reports no additional complaints GI Reports no additional complaints Physical exam (Primary Care) Vital Signs: Last Vital Signs Pulse 69 04/08/24 10:57 BP 122/80 04/08/24 10:57 Pulse Ox 100 04/08/24 10:57 Oxygen Delivery Method Room Air 04/08/24 10:57 BMI result Body Mass Index 26.3 Tobacco/Smoking Status: Tobacco use Status Tobacco use date assessed 04/08/24 04/08/24 11:01 Patient Tobacco Use Status Never used Tobacco 04/08/24 10:57 e-Cigarette/Vaping Use Never Used 04/08/24 10:57 Thrive Assessment: Date of Thrive Assessment Date Thrive assessed 03/02/24 04/08/24 10:57 Currently or been in a relationship where the following occur: No concerns reported Const General: no acute distress HENMT Mouth: Normal oral and palatal mucosa present Eyes General: appearance normal, both eyes and all related structures Resp Effort & Inspection: normal respiratory effort Auscultation: clear to auscultation bilaterally Cardio Rhythm: regular rhythm Heart sounds: S1 normal heart sound present and S2 normal heart sound present GI Inspection: Yes normal to inspection Palpation (GI): Soft to palpation Percussion: Yes normal to percussion Coding Level of Care Code Est Pt Level 3 (14284) Diagnoses Hyperlipidemia, unspecified hyperlipidemia type E78.5 Hyperlipidemia type: unspecified HTN (hypertension) I10 Assessment & Plan Assessment & Plan (1) Hyperlipidemia: Comment: Patient has discontinued and refuses to take atorvastatin Code(s): E78.5 - Hyperlipidemia, unspecified Category: Medical Qualifiers: Hyperlipidemia type: unspecified Qualified Code(s): E78.5 - Hyperlipidemia, unspecified Plan: Continue low-cholesterol diet check lipid profile in 6 months (2) HTN (hypertension): Code(s): I10 - Essential (primary) hypertension Category: Medical Plan: Continue lisinopril return for physical in 6 months with a fasting labs before Orders: Orders Lipid Panel 6 Months E78.5 - Hyperlipidemia, unspecified, I10 - Essential (primary) hypertension Comprehensive [place]. Panel Fast 6 Months E78.5 - Hyperlipidemia, unspecified, I10 - Essential (primary) hypertension Complete Blood Count Auto Diff 6 Months E78.5 - Hyperlipidemia, unspecified, I10 - Essential (primary) hypertension PSA,Total (Free>4and<10) 6 Months E78.5 - Hyperlipidemia, unspecified, I10 - Essential (primary) hypertension UA w Microscopic 6 Months E78.5 - Hyperlipidemia, unspecified, I10 - Essential (primary) hypertension
[2024-04-08 10:57] VITALS: BP 122/80; PULSE 69; O2SAT 100; BMI 26.3
--- OUTSIDE RECORDS SUMMARY | 2024-04-14 01:45 | XMS_ITS | Data Portability ---
Author Organization [employer] [employer] Address [address] [place] [id number] Care Team Providers Care Model Maker [employer] Name Role Phone HIM CCA OTHER ARIADNA CARUSO Primary Care Provider [phone] Assessment Encounter Date Assessment Date Assessment LastModified by Organization Details LastModified Time 01/17/2024 01/17/2024 I have reviewed and agree with the assessment and plan as documented by the bar catcher. I provided real time medical direction for this encounter and was immediately available to provide additional phone based assistance as needed. History as noted by bar catcher. Pt reports no significant PMH although he has been told that his cholesterol was high in the past. He takes no medications and is a non smoker. Pt reports multiple complaints today: He has noted mild frontal headaches in the AM for about 1 week. They do not last all day and there is no associated dizziness, vision changes or vomiting. Pt also reports that recently, when he is lifting at the gym, he has noted mild upper chest discomfort, that resolves after he is done lifting. He does not experience this discomfort when he is ambulating or exerting himself in other ways, like walking up steps. No associated dyspnea or radiation of the pain. Pt has also noted that his BP has been elevated recently, 153/90-166/104. Pt also reports that at night time, he has intermittently noted that his heart beat is pounding and beating hard but he denies any rapid heart beat. No associated CP, SOB or dizziness with these episodes. On exam, pt appears well. Vitals ok although BP elevated, 145/96. Lungs clear. EKG with sinus rhythm. Normal intervals. No acute ischemia. Impression: Pt with multiple complaints today: 1. mild frontal headaches in the AM that resolve, 2. intermittent pounding heart beat with no associated symptoms, 3. elevated BP, and 4. anterior chest discomfort when lifting at the gym, but not noted at any other times. Discomfort is otherwise non exertional, non pleuritic and non radiating. No SOB. Pt's EKG is reassuring but his BP is moderately elevated today. I discuss with the pt that he needs to call his primary care physician after the weekend, on Thursday 01/18 and arrange for an appointment to discuss all of these issues. He is told that he may need to be started on BP meds and will need further evaluation including: lipid panel, echocardiogram, 14 day patch cardiac technologist, and ETT to assess his recent symptoms. To primary care team: Please call and arrange close follow up for this patient, preferably this coming week, to address his recent multiple complaints and arrange for out patient evaluations. Pt instructed to seek medical attention right away with any worsening or new symptoms, which are reviewed with him in detail [email or web address] Not available 01/17/2024 13:17:07 Plan of Treatment Reminders Order Date Submit Date Provider Last Modified By Organization Details Last Modified Time Details Appointments None recorded. Lab BMP, serum or plasma [email or web address], [address], 13:04:47 Referral None recorded. Procedures None recorded. Surgeries None recorded. Imaging electrocard iogram [email or web address], [address], 14:31:29 Medication Orders None recorded. Patient TargetsNo targets recorded. Patient InstructionsNo instructions recorded. Reason for Referral None Reported. Results Created Date Observation Date Name Description Value Unit Range Abnormal Flag Note LastModifiedBy Organization Detail LastModifiedTime 01/17/20 24 01/17/2024 elect claribelmarvin meenagr am No observ ation record ed. [email or web address] [address], [address], 01/17/2024 13:09:44 Result Notes None recorded. Procedures Surgical History None recorded. Imaging Results Imaging Date Name Status LastModified by Organization Details LastModified Time 01/17/2024 electrocardiogram completed [email or web address] [place], [address], 01/17/2024 13:09:44 Procedure Notes None recorded. Medical Equipment None Reported. Medications Name Sig Start Date Stop Date Status Note LastModified by Organization Details LastModified Time doxycycline hyclate 100 mg capsule active Not Available Not Available Not Available atorvastatin 20 mg tablet active Not Available Not Available Not Available atorvastatin 10 mg tablet active Not Available Not Available Not Available Vitals Date Recorded Body weight Body temperature Heart rate Respiratory rate Oxygen saturation Oxygen saturation in Arterial blood by Pulse oximetry Body height Systolic blood pressure Diastolic blood pressure Provider Name and Address Organization Details Last Updated DateTime 4 21622.6 8 g 98.1 [degF] 88 /min 16 /min 97 % 97 % 170.18 cm 145 mm[Hg] 96 mm[Hg] Not Available [facility] - production 12:51:40 Social History None recorded. Functional Status None recorded. Mental Status None recorded. Family History Nothing Reported. Medical History No medical history recorded. Past Encounters Encounter ID Performer Location Encounter Start Date Encounter Closed Date Diagnosis/Indication Diagnosis SNOMED-CT Code Diagnosis ICD10 Code [id number] Phill You MD Main - [address] [address] 01/17/2024 12:51:26 01/17/2024 18:23:46 Atypical chest pain 556984998 R07.89 Health Concerns Section Related Observation LastModified by Organization Detai ls LastModified Time None Recorded Concern Status LastModified by Organization Details LastModified Time None Recorded Advance Directives Directive None Recorded Payers Encounter Date Sequence Insurance Name Policy Number Policy Vigil Covered Member ID Vigil Member ID Guarantor Name 01/17/2024 1 [facility] - DOS ON OR AFTER 2022 - MEDICARE [place]VANTAGE [place] ([place]PLACEMENT/ADV ANTAGE - PPO) Everett Beltran [id number] Everett Beltran Notes Date Note Type Note Provider Name and Address Organization Details Recorded Time 01/17/2024 text/html This was a supervised home visit with bar catcher Corey Roman. [facility] Nurse Triage Notes (Stephanie Peralta): Chief Complaints: Hypertension, Tachycardia/Palpitat ions Allergies: No Known Comments: Member calls in c/o heart palpitations and high blood pressure. CRC RN verified identity via name/. Confirmed phone number. This morning felt like his heart was beating fast, checked his BP which was 153/90, pulse 79. Last BP 166/104 at 11am. He does not take medication for BP. Has been having mild headaches on and off for 1 week. Denies dizziness and lightheadedness. Denies SOB. Reports some chest pain but feels it is muscular and related to recently going to the gym. Also comes and goes. Does not feel like it is concerning. Denies any numbness or tingling in his arms/legs/feet/hands . No confusion or slurred speech. Requesting visit for assessment. Education provided on expected response time and the member was advised to monitor reported s/s. Member in agreement to seek emergency treatment if needed. Kera Peralta RN Pull Worker Organization Information for Corey Roman Legal Name: [facility] Address: [address] [place] [address], [place] [address], Wealth Management Advisor: Vaughn Zhong MD CLIA No.: [id number] Pull Worker POC Test Results from Corey Roman EKG (12:31:56) EKG test performed. Attachments uploaded as part of this test result can be found under Documents section. epoc (12:39:31) pH: 7.43 pH units pCO2: 37.6 mmHg pO2: 64.7 mmHg Na: 141 mmol/L K: 4.2 mmol/L iCa: 1.11 mmol/L Cl: 106 mmol/L TCO2: 25.0 mEq/L Hct: 48 % Hb: 16.4 g/dL Glu: 104 mg/dL Lac: 0.9 mmol/L Cr: 1.0 mg/dL BUN: 24 mg/dL A .................... .................... .................... .................... .................... .................... .................... . Pull Worker Note From Corey Roman: Pt reporting mild WILEY in the morning, CP when lifting weights only and feeling like his heart is beating ? hard? (not fast or irregular) at night for approx one week. Pt denies any associated SOB, MOREIRA, lightheadedness, dizziness, f/n/v/d. Pt is alert, NAD. VSS. Afebrile. Non focal neuro exam. Normal gait. Lungs CTA. Benign ABD exam. No LE edema. Unremarkable EKG and POC labs uploaded. Pt instructed to contact PCP? s office on Friday to schedule appt for further testing. Red flags reviewed. .................... .................... .................... .................... .................... .................... .................... . Disposition: Fulfilled Phill You MD [address] [facility],[address], [place], [address], [employer] - KumbuyaSONNY TRUJILLO 01/17/2024 13:21:09
--- OUTSIDE RECORDS SUMMARY | 2024-04-14 01:45 | XMS_ITS | Continuity of Care Document ---
Author Organization [employer] Address [address] [place] [phone] Care Team Providers Care Bat Person Name Role Phone HIM CCA OTHER ARIADNA CARUSO Primary Care Provider [phone] Assessment Encounter Date Assessment Date Assessment LastModified by Organization Details LastModified Time 01/17/2024 01/17/2024 I have reviewed and agree with the assessment and plan as documented by the test lead. I provided real time medical direction for this encounter and was immediately available to provide additional phone based assistance as needed. History as noted by test lead. Pt reports no significant PMH although he [...] lipid panel, echocardiogram, 14 day patch cardiac sonographer, and ETT to assess his recent symptoms. [...] recorded. Lab BMP, serum or plasma [email or web address], [address], 13:04:47 Referral None recorded. Procedures None recorded. Surgeries None recorded. Imaging electrocard iogram [email or web address], [address], 14:31:29 Medication Orders None recorded. Patient TargetsNo targets recorded. Patient InstructionsNo instructions recorded. Reason for Referral None Reported. Results Created Date Observation Date Name Description Value Unit Range Abnormal Flag Note LastModifiedBy Organization Detail LastModifiedTime 01/17/20 24 01/17/2024 elect jeanie robledogr am No observ ation record ed. [email or web address] [address], [address], 01/17/2024 13:09:44 Result Notes None recorded. Procedures Surgical History None recorded. Imaging Results Imaging Date Name Status LastModified by Organization Details LastModified Time 01/17/2024 electrocardiogram completed [email or web address] [address] [place], [address], 01/17/2024 13:09:44 Procedure Notes None recorded. Medical [...] Address Organization Details Last Updated DateTime 4 70730.6 8 g 98.1 [degF] 88 /min 16 [...] Diagnosis/Indication Diagnosis SNOMED-CT Code Diagnosis ICD10 Code [id number] Phill You MD Main - [address] [address] 01/17/2024 12:51:26 01/17/2024 18:23:46 Atypical chest pain 352118048 R07.89 Health Concerns Section Related Observation LastModified by Organization Detai ls LastModified Time None Recorded Concern Status LastModified by Organization Details LastModified Time None Recorded Payers Encounter Date Sequence Insurance Name Policy Number Policy Vigil Covered Member ID Vigil Member ID Guarantor Name 01/17/2024 1 [facility] - DOS ON OR AFTER 2022 - MEDICARE [place]VANTAGE [place]/ADV ANTAGE - PPO) Everett Beltran [id number] Everett Beltran Notes Date Note Type Note Provider Name and Address Organization Details Recorded Time 01/17/2024 text/html This was a supervised home visit with test lead Corey Roman. CRC Nurse Triage Notes (Stephanie [...] emergency treatment if needed. Kera Peralta RN Psychological Operations Officer Organization Information for Corey Roman Legal Name: [employer] Address: [address] [place] [address], Credit Collections Specialist: Vaughn Zhong MD [facility] No.: [id number] Psychological Operations Officer POC Test Results from Corey Roman EKG [...] .................... .................... .................... .................... .................... .................... . Psychological Operations Officer Note From Corey Roman: Pt reporting mild [...] . Disposition: Fulfilled Phill You MD [address] [facility],[address], [place], [address], [employer] - [employer]NY TRUJILLO 01/17/2024 13:21:09
--- OUTSIDE RECORDS SUMMARY | 2024-04-14 01:45 | XMS_ITS | Data Portability ---
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 Plan of Treatment Reminders Order Date Submit Date Provider Last Modified By Organization Details Last Modified Time Details Appointments None recorded. Lab lipid panel, serum 2021 022 [facility], [address], [address], [place], [address], 12:28:49 HbA1c (hemoglobin A1c), blood 2021 022 [facility], [address], [address], [place], [address], 10:27:51 CMP, serum or plasma 2021 022 [facility], [address], [address], [place], [address], 12:28:47 PSA, serum or plasma - Screening 2021 022 [facility], [address], [address], [place], [address], 12:42:37 urinalysis, complete 2022 023 [facility], [address], [address], [place], [address], 3 15:39:14 CMP, serum or plasma 2022 023 [facility], [address], [address], [place], [address], 3 10:47:03 lipid panel, serum 2022 023 [facility], [address], [address], [place], [address], 3 10:47:04 HbA1c (hemoglobin A1c), blood 2022 023 [facility], [address], [address], [place], [address], 3 13:03:17 PSA, serum or plasma - Screening 2022 023 [facility], [address], [address], [place], [address], 3 10:57:32 Referral dermatologi referral - for eval of pt with non healing groin lesion 2020 021 [email or web address] Molly Tarango MD, [address] [facility] , [place], [address], 1 09:53:19 nutritionis t/dietitian referral 2021 022 Not available 2 15:45:56 nutritionis t/dietitian referral 2022 023 [email or web address] Not available 3 16:18:37 Procedures None recorded. Surgeries None recorded. Imaging XR, thoracic spine, 4 or more view - for eval of thoracic radicular pain, rule out lower thoracic disc disease. 2020 021 [email or web address] Not available 1 10:10:10 CT, chest, w/o contrast - rule out pulmonary/c hest wall etiology for persistent lower thoracic pain. 2020 021 [facility] ([facility]), [address], [place], [address], 1 12:44:48 XR, shoulder, 2 or more view - for eval of left shoulder protuberanc e near AC joint 2022 023 [facility], [address], [place], [address], 3 08:29:33 Medication Orders clotrimazol e-betametha sone 1 %-0.05 % topical cream 2022 023 [facility] #[id number], [address], [place], [id number], 3 16:15:08 clobetasol 0.05 % topical cream 2022 023 [facility] #[id number], [address], [place], [id number], 3 16:01:38 meloxicam 15 mg tablet 2022 023 [facility] #[id number], [address], [place], [id number], 3 16:01:36 Patient TargetsNo targets recorded. Patient Instructions Encounter Date Encounter Id Patient Instructions Last Modified By Organization Details Last Modified Time 01/31/2021 [id number] rec. laxaclear (generic for miralax at [employer]) 1/2 - 1 scoop in 8 oz. of any fluid 1-2x/daily. ??rec. eat less bananas and drink more water. rec. eat more grapes, oranges, and pears. in future, if no bm x 3 days, then use 1-2 tabs of senna or dulcolax as needed. pmadden Not available 01/31/2021 17:07:00 Patient will follow up and keep appointment as scheduled. -- consider ugis vs ct a/p if no sig improvement pmadden Not available 01/31/2021 17:08:47 06/12/2021 [id number] prediabetes: care instructions awychowski Not available 06/12/2021 14:58:30 sleep apnea: care instructions awychowski Not available 06/12/2021 14:58:30 Prostate Cancer Screening awychowski Not available 06/12/2021 14:58:30 When You Want to Lose Weight: Care Instructions [email or web address] Not available 06/12/2021 14:58:30 Nutrition Referral and Weight Management Follow-up Information awychowski Not available 06/12/2021 14:58:30 08/26/2022 [id number] athlete's foot: care instructions awychowski Not available 08/26/2022 16:10:17 prediabetes: care instructions awychowski Not available 08/26/2022 16:10:17 Prostate Cancer Screening awychowski Not available 08/26/2022 16:10:17 When You Want to Lose Weight: Care Instructions awychowski Not available 08/26/2022 16:10:17 Nutrition Referral and Weight Management Follow-up Information awychowski Not available 08/26/2022 16:10:17 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 for N on-healing pigmented skin lesion for eval of pt with non healing groin lesion Referring Physician: [facility], Encounter Date: 12/18/2020 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 DIAGN OSTIC USE: The Ameri can Diabe vamsi Assoc iatio n (ADA) and the World Healt h Organ izati on (WHO) recom mend the use of HbA1c to diagn ose diabe vamsi using a thres hold of 6.5%. Patie nts who have an HbA1c betwe en 5.7% and 6.4% are consi dered at incre ased risk for devel oping diabe vamsi in the futur e. CAUTI ON: False ly low HbA1c resul ts may be obser antonio in patie nts with hemol ytic anemi a, homoz ygous forms of abnor mal hemog lobin (e.g. SS, CC, SC), pregn sadie, recen t blood loss or hemog lobin F great er than 7%. Fruct osami ne may be used as an alter noemí test in these cases . REFER ENCE: ADA: Stand ards of Medic al Care in Diabe vamsi 2019, The Journ al of Clini day[place] and Appli ed Resea rch and Educa tion Volum e 43, Suppl ement 1 Not Available [facility] [address] [place], [address], 06/20/2021 10:27:51 06/20/19 22 06/20/2021 COMPR EHENS JANET METAB OLIC PANL glucose 97 mg/dL (70-99 ) Not Available [facility] [address] [place], [address], 06/20/2021 12:28:47 06/20/19 22 06/20/2021 COMPR EHENS JANET METAB OLIC PANL BUN 18 mg/dL (8-23) Not Available [facility] [address] [place], [address], 06/20/2021 12:28:47 06/20/19 22 06/20/2021 COMPR EHENS JANET METAB OLIC PANL creatinine 0.9 mg/dL (0.7-1 .2) Not Available [facility] [address] [place], [address], 06/20/2021 12:28:47 06/20/19 22 06/20/2021 COMPR EHENS JANET METAB OLIC PANL sodium 140 mmol/ L (133-1 45) Not Available [facility] [address] [place], [address], 06/20/2021 12:28:47 06/20/19 22 06/20/2021 COMPR EHENS JANET METAB OLIC PANL potassium 4.9 mmol/ L (3.6-5 .2) Not Available [facility] [address] [place], [address], 06/20/2021 12:28:47 06/20/19 22 06/20/2021 COMPR EHENS JANET METAB OLIC PANL chloride 104 mmol/ L (98-10 7) Not Available [facility] [address] [place], [address], 06/20/2021 12:28:47 06/20/19 22 06/20/2021 COMPR EHENS JANET METAB OLIC PANL bicarbonate 28 mmol/ L (22-29 ) Not Available [facility] [address] [place], [address], 06/20/2021 12:28:47 06/20/19 22 06/20/2021 COMPR EHENS JANET METAB OLIC PANL anion gap 8 (4-17) Not Available [facility] [address] [place], [address], 06/20/2021 12:28:47 06/20/19 22 06/20/2021 COMPR EHENS JANET METAB OLIC PANL albumin 4.5 gm/dL (3.4-4 .8) Not Available [facility] [address] [place], [address], 06/20/2021 12:28:47 06/20/19 22 06/20/2021 COMPR EHENS JANET METAB OLIC PANL calcium 8.8 mg/dL (8.6-1 0.5) Not Available [facility] [address] [place], [address], 06/20/2021 12:28:47 06/20/19 22 06/20/2021 COMPR EHENS JANET METAB OLIC PANL bilirubin,to jordon 0.7 mg/dL (0-1.2 ) Not Available [facility] [address] [place], [address], 06/20/2021 12:28:47 06/20/19 22 06/20/2021 COMPR EHENS JANET METAB OLIC PANL total protein 6.6 gm/dL (6.2-8 .2) Not Available [facility] [address] [place], [address], 06/20/2021 12:28:47 06/20/19 22 06/20/2021 COMPR EHENS JANET METAB OLIC PANL Ag ratio 2.1 Not Available [facility] [address] [place], [address], 06/20/2021 12:28:47 06/20/19 22 06/20/2021 COMPR EHENS JANET METAB OLIC PANL AST 26 U/L (0-40) Not Available [facility] [address] [place], [address], 06/20/2021 12:28:47 06/20/19 22 06/20/2021 COMPR EHENS JANET METAB OLIC PANL alk phos 102 U/L (40-12 9) Not Available [facility] [address] [place], [address], 06/20/2021 12:28:47 06/20/19 22 06/20/2021 COMPR EHENS JANET METAB OLIC PANL ALT 21 U/L (0-41) Not Available [facility] [address] [place], [address], 06/20/2021 12:28:47 06/20/19 22 06/20/2021 COMPR EHENS JANET METAB OLIC PANL estimated GFR creatinine 91 mL/mi n/1.7 3_M2 Not Available [facility] [address] [place], [address], 06/20/2021 12:28:47 06/20/19 22 06/20/2021 LIPID PANEL cholesterol, total 263 mg/dL (<200) high Not Available [facility] [address] [place], [address], 06/20/2021 12:28:49 06/20/19 22 06/20/2021 LIPID PANEL triglyceride 98 mg/dL (<150) Not Available [facility] [address] [place], [address], 06/20/2021 12:28:49 06/20/19 22 06/20/2021 LIPID PANEL HDL chol 52 mg/dL (>39) Not Available [facility] [address] [place], [address], 06/20/2021 12:28:49 06/20/19 22 06/20/2021 LIPID PANEL LDL cholesterol, calculated 191 mg/dL (0-130 ) high Not Available [facility] [address] [place], [address], 06/20/2021 12:28:49 06/20/19 22 06/20/2021 LIPID PANEL non HDL cholesterol (calc) 211 mg/dL (<160) high Not Available [facility] [address] [place], [address], 06/20/2021 12:28:49 06/20/19 22 06/20/2021 PSA SCREE N PSA 1.5 NG/mL (0-4) TEST PERFO RMED USING THE HALIE ELECT HALIE MILLU MINES CENCE TOTAL PSA ASSAY . PSA VALUE S OBTAI HUSAM WITH OTHER ASSAY METHO DS OR KITS CANNO T BE USED INTER MCDONNELL EABLY . Not Available [facility] [address] [place], [address], 06/20/2021 12:42:37 09/03/19 23 09/02/2022 COMPR EHENS JANET METAB OLIC PANL glucose 102 mg/dL (70-99 ) high Not Available [facility] [address] [place], [address], 09/02/2022 10:47:02 09/03/19 23 09/02/2022 COMPR EHENS JANET METAB OLIC PANL BUN 21 mg/dL (8-23) Not Available [facility] [address] [place], [address], 09/02/2022 10:47:02 09/03/19 23 09/02/2022 COMPR EHENS JANET METAB OLIC PANL creatinine 0.9 mg/dL (0.7-1 .2) Not Available [facility] [address] [place], [address], 09/02/2022 10:47:02 09/03/19 23 09/02/2022 COMPR EHENS JANET METAB OLIC PANL sodium 142 mmol/ L (133-1 45) Not Available [facility] [address] [place], [address], 09/02/2022 10:47:02 09/03/19 23 09/02/2022 COMPR EHENS JANET METAB OLIC PANL potassium 4.5 mmol/ L (3.6-5 .2) Not Available [facility] [address] [place], [address], 09/02/2022 10:47:02 09/03/19 23 09/02/2022 COMPR EHENS JANET METAB OLIC PANL chloride 106 mmol/ L (98-10 7) Not Available [facility] [address] [place], [address], 09/02/2022 10:47:02 09/03/19 23 09/02/2022 COMPR EHENS JANET METAB OLIC PANL bicarbonate 28 mmol/ L (22-29 ) Not Available [facility] [address] [place], [address], 09/02/2022 10:47:02 09/03/19 23 09/02/2022 COMPR EHENS JANET METAB OLIC PANL anion gap 8 (4-17) Not Available [facility] [address] [place], [address], 09/02/2022 10:47:02 09/03/19 23 09/02/2022 COMPR EHENS JANET METAB OLIC PANL albumin 4.3 gm/dL (3.4-4 .8) Not Available [facility] [address] [place], [address], 09/02/2022 10:47:02 09/03/19 23 09/02/2022 COMPR EHENS JANET METAB OLIC PANL calcium 8.8 mg/dL (8.6-1 0.5) Not Available [facility] [address] [place], [address], 09/02/2022 10:47:02 09/03/19 23 09/02/2022 COMPR EHENS JANET METAB OLIC PANL bilirubin,to jordon 0.3 mg/dL (0-1.2 ) Not Available [facility] [address] [place], [address], 09/02/2022 10:47:02 09/03/19 23 09/02/2022 COMPR EHENS JANET METAB OLIC PANL total protein 6.4 gm/dL (6.2-8 .2) Not Available [facility] [address] [place], [address], 09/02/2022 10:47:02 09/03/19 23 09/02/2022 COMPR EHENS JANET METAB OLIC PANL Ag ratio 2.0 Not Available [facility] [address] [place], [address], 09/02/2022 10:47:02 09/03/19 23 09/02/2022 COMPR EHENS JANET METAB OLIC PANL AST 25 U/L (0-40) Not Available [facility] [address] [place], [address], 09/02/2022 10:47:02 09/03/19 23 09/02/2022 COMPR EHENS JANET METAB OLIC PANL alk phos 96 U/L (40-12 9) Not Available [facility] [address] [place], [address], 09/02/2022 10:47:02 09/03/19 23 09/02/2022 COMPR EHENS JANET METAB OLIC PANL ALT 28 U/L (0-41) Not Available [facility] [address] [place], [address], 09/02/2022 10:47:02 09/03/19 23 09/02/2022 COMPR EHENS JANET METAB OLIC PANL estimated GFR creatinine 95 mL/mi n/1.7 3_M2 Creat inine based estim ated glome rular filtr ation (eGFR ) in adult s is calcu lated using the Natio nal Kidne y Found ation recom rakesh d 2020 CKD-E PI equat ion. Estim ates GFR from serum creat inine , age and sex. Not Available [facility] [address] [place], [address], 09/02/2022 10:47:02 09/03/19 23 09/02/2022 LIPID PANEL cholesterol, total 238 mg/dL (<200) high Not Available [facility] [address] [place], [address], 09/02/2022 10:47:04 09/03/19 23 09/02/2022 LIPID PANEL triglyceride 108 mg/dL (<150) Not Available [facility] [address] [place], [address], 09/02/2022 10:47:04 09/03/19 23 09/02/2022 LIPID PANEL HDL chol 50 mg/dL (>39) Not Available [facility] [address] [place], [address], 09/02/2022 10:47:04 09/03/19 23 09/02/2022 LIPID PANEL LDL cholesterol, calculated 166 mg/dL (0-130 ) high Not Available [facility] [address] [place], [address], 09/02/2022 10:47:04 09/03/19 23 09/02/2022 LIPID PANEL non HDL cholesterol (calc) 188 mg/dL (<160) high Not Available [facility] [address] [place], [address], 09/02/2022 10:47:04 09/03/19 23 09/02/2022 PSA SCREE N PSA 1.4 NG/mL (0-4) TEST PERFO RMED USING THE HALIE ELECT Sesamea MILLU MINES CENCE TOTAL PSA ASSAY . PSA VALUE S OBTAI HUSAM WITH OTHER ASSAY METHO DS OR KITS CANNO T BE USED INTER MCDONNELL EABLY . Not Available [facility] [address] [place], [address], 09/02/2022 10:57:32 09/03/1909/02/2022 HEMOG LOBIN A1C hemoglobin A1C 5.8 % (4.0-5 .6) high MONIT ORING : In known diabe tic patie nts, hemog lobin A1c targe ts shoul d be discu ssed with healt h care provi jenn. DIAGN OSTIC USE: The Ameri can Diabe vamsi Assoc iatio n (ADA) and the World Healt h Organ izati on (WHO) recom mend the use of HbA1c to diagn ose diabe vamsi using a thres hold of 6.5%. Patie nts who have an HbA1c betwe en 5.7% and 6.4% are consi dered at incre ased risk for devel oping diabe vamsi in the futur e. CAUTI ON: False ly low HbA1c resul ts may be obser natonio in patie nts with hemol ytic anemi a, homoz ygous forms of abnor mal hemog lobin (e.g. SS, CC, SC), pregn sadie, recen t blood loss or hemog lobin F great er than 7%. Fruct osami ne may be used as an alter noemí test in these cases . REFER ENCE: ADA: Stand ards of Medic al Care in Diabe vamsi 2019, The Journ al of Clini day[place] and Appli ed Resea rch and Educa tion Volum e 43, Suppl ement 1 Not Available [facility] [address] [place], [address], 09/02/2022 13:03:17 09/03/19 23 09/02/2022 LAB ONLY URINA LYSIS appear/color LIGHT YELLO W CLEAR Not Available [facility] [address] [place], [address], 09/02/2022 15:39:14 09/03/19 23 09/02/2022 LAB ONLY URINA LYSIS sp. gravity 1.025 (1.002 -1.030 ) Not Available [facility] [address] [place], [address], 09/02/2022 15:39:14 09/03/19 23 09/02/2022 LAB ONLY URINA LYSIS urine pH 6.5 (5.0-8 .0) Not Available [facility] [address] [place], [address], 09/02/2022 15:39:14 09/03/19 23 09/02/2022 LAB ONLY URINA LYSIS urine albumin TRACE (neg) abnormal Not Available [facility] [address] [place], [address], 09/02/2022 15:39:14 09/03/19 23 09/02/2022 LAB ONLY URINA LYSIS urine glucose NEGATI VE (neg) Not Available [facility] [address] [place], [address], 09/02/2022 15:39:14 09/03/19 23 09/02/2022 LAB ONLY URINA LYSIS urine ketones NEGATI VE (neg) Not Available [facility] [address] [place], [address], 09/02/2022 15:39:14 09/03/19 23 09/02/2022 LAB ONLY URINA LYSIS urine bilirubin NEGATI VE (neg) Not Available [facility] [address] [place], [address], 09/02/2022 15:39:14 09/03/19 23 09/02/2022 LAB ONLY URINA LYSIS urine hemoglobin NEGATI VE (neg) Not Available [facility] [address] [place], [address], 09/02/2022 15:39:14 09/03/19 23 09/02/2022 LAB ONLY URINA LYSIS urine nitrite NEGATI VE (neg) Not Available [facility] [address] [place], [address], 09/02/2022 15:39:14 09/03/19 23 09/02/2022 LAB ONLY URINA LYSIS urine leukocyte NEGATI VE (neg) Not Available [facility] [address] [place], [address], 09/02/2022 15:39:14 09/03/1909/02/2022 LAB ONLY URINA LYSIS urobilinogen NORMAL mg/dL (norm) Not Available [facility] [address] [place], [address], 09/02/2022 15:39:14 09/03/19 23 09/02/2022 LAB ONLY URINA LYSIS urine WBCs <1 /hpf (0-5) Not Available [facility] [address] [place], [address], 09/02/2022 15:39:14 09/03/1909/02/2022 LAB ONLY URINA LYSIS urine RBCs 2 /hpf (0-3) Not Available [facility] [address] [place], [address], 09/02/2022 15:39:14 09/03/19 23 09/02/2022 LAB ONLY URINA LYSIS mucus SLIGHT /lpf Not Available [facility] [address], [place], [address], 09/02/2022 15:39:14 12/19/19 21 12/18/2020 XR, thora cic spine , 3 view Thorac ic Spine 3 Views Reason : chest pain COMPAR JOSUE: Correl ation with chest radiog raph 021. FINDIN GS: No bone lesion s or fractu res. Mild degene rative change s are noted with small margin al osteop hytes at severa l levels . Surgic al clips are again noted in the left upper abdome n. IMPRES ASHLEY: Mild degene rative change s but no acute findin gs. WSN: [id number] Orderi ng Physic padmini: Dexter Swartz Dictat ed By: Ashley Conley MD Dictat ed Date/T al: 4:49 pm Review ed By: Ashley Conley MD Signed By: Ashley Conley MD Signed Date/T al: 4:49 pm Transc ribed By: OLIVERIO Transc ribed Date/T al: 4:48 pm Patien t Class: Outpat ient [facility] ([facility]) [address] , [place], [address], 01/31/2021 16:39:05 01/11/20 21 01/10/2021 CT, chest , w/o contr ast CT Chest W/O Contra st INDICA TION: CHEST WALL PAIN. COMPAR JOSUE: Chest radiog raphs, most recent 021. TECHNI QUE: Helica l CT scan of the chest withou t IV contra st, format roa in 3 planes . Weight -based protoc ol was perfor med using automa tic exposu re contro l. CTDIvo l Body: 9.83 mGy, DLP Body: 353 mGy*cm . FINDIN GS: LINES AND TUBES: None. TRACHE A AND BRONCH I: Patent withou t eviden ce of trache al or endobr onchia l lesion . LUNGS AND PLEURA : No suspic ious pulmon berta nodule s. There is a 0.5 cm nodule along the access ory fissur e in the superi or segmen t left lower lobe, sagitt al image 88. There is a calcif ied granul elizabeth at the right lung base. AORTA: No eviden ce of aortic aneury sm. MEDIAS TINUM and ALFREDO: No hemato ma, mass or adenop athy. No esopha geal abnorm alitie s. HEART: Normal cardia c size. No perica rdial effusi on. Minima l hall ry artery calcif icatio ns. CHEST WALL SOFT TISSUE S: Normal . DIAPHR AGM AND UPPER ABDOME N: Status post splene ctomy. Surgic al clips in the automatic tire tester ior spleni c fossa. Stomac h is debris -fille d likely a recent meal, colon is stool- filled sugges ting consti pation . BONES: Mild degene rative change s of the visual ized spine. No acute abnorm ality. IMPRES ASHLEY: Unrema rkable . I have person ally review ed the images and I agree with this report . WSN: [id number] Orderi ng Physic padmini: Dexter Swartz Dictat ed By: Oswald Ashley DO Dictat ed Date/T al: 3:20 pm Review ed By: Mikaela Jenkins MD Signed By: Mikaela Jenkins MD Signed Date/T al: 3:25 pm Transc ribed By: MARCELLAB Transc ribed Date/T al: 2:44 pm Patien t Class: Outpat ient [facility] (Outpt [facility]) [address] , [place], [address], 01/31/2021 16:39:05 09/03/19 23 09/02/2022 XR, shoul jenn, 2 or more view Should er Min 2 Views Left, 2 views Reason : protub erance near ac joint COMPAR JOSUE: None. FINDIN GS: No fractu re or disloc ation. No arthri tic change of the glenoh umeral joint. Normal AC joint and portio ns of the clavic le includ ed on the exam. No calcif icatio n of the rotato r cuff. A tiny BB is noted just superi or to the left AC joint. IMPRES ASHLEY: No acute osseou s abnorm ality is seen involv ing the left should er. WSN: [id number] Orderi ng Physic padmini: Dexter Swartz Dictat ed By: Trenton Mckinley MD, V Dictat ed Date/T al: 8:26 am Review ed By: Hailey marie MD, Trenton De La Paz Signed By: Trenton Mckinley MD, V Signed Date/T al: 8:26 am Transc ribed By: OLIVERIO Transc ribed Date/T al: 8:24 am Patien t Class: Outpat ient [facility] (Outpt Imaging) [address] [place] [address], [address], 09/20/2022 22:28:29 Result Notes None recorded. Problems Name Problem SNOMED Code Status Onset Date Resolution Date Notes Provider Name and Address Organization Details Recorded Time Hypercholester olemia 17849852 Active 2018 Dexter Bay MD [address] [address], [place], [address], [facility] 9 12:52:54 Benign prostatic hyperplasia 306362702 Active 2019 Dexter Bay MD [address] [address], [place], [address], [facility] 0 06:48:15 History of calculus of kidney 878489305 Active 2019 Dexter Bay MD [address] [address], [place], [address], [facility] 0 06:48:26 Body mass index 25-29 - overweight 099900402 Active 2019 Dexter Bay MD [address] [place], [address], [facility] 0 15:05:10 Impaired fasting glycemia 500899554 Active 2019 Dexter Bay MD [address] [facility] [address], [place], [address], [facility] 0 20:27:30 Hepatitis C antibody detected 252552019 Active 2019 Dexter Bay MD [address] [facility] [address], [place], [address], [facility] 0 20:35:12 Albuminuria 858752199 Active 2020 Dexter Bay MD [address] [facility] [address], [place], [address], [facility] 1 12:01:29 Gallstone 495143907 Active 2020 Dexter Bay MD [address] [facility] [address], [place], [address], [facility] 1 13:29:38 Chest wall pain 142572397 Active 2020 Dexter Bay MD [address] [facility] [address], [place], [address], [facility] 1 07:11:55 History of splenectomy 394758163 Active 2020 Dexter Bay MD [address] [facility] [address], [place], [address], [facility] 1 15:49:20 Obstructive sleep apnea syndrome 71168908 Active 2021 Dexter Bay MD [address] [facility] [address], [place], [address], [facility] 2 14:57:39 Prediabetes [id number] Active 2022 Detxer Bay MD [address] [facility] [address], [place], [address], [facility] 3 07:25:19 Problem Notes None recorded. Procedures Surgical History Date Name Laterality Status Provider Name and Address Organization Details Recorded Time 02/08/20 20 cardiovascular stress testing completed Dexter Bay MD [address] [address], [place], [address], [facility] 02/11/2020 14:08:48 02/11/20 15 Shoulder joint surgery completed Dexter Bay MD [address] [address], [place], [address], [facility] 12/23/2019 14:43:33 01/29/20 14 Colonoscopy completed Dexter Bay MD [address] [address], [place], [address], [facility] 12/23/2019 14:43:52 splenectomy completed Dexter Bay MD [address] [address], [place], [address], [facility] 12/23/2019 06:49:28 Knee Surgery completed Dexter Bay MD [address], [address], [facility] 12/23/2019 14:42:55 Hernia Repair completed Jackie George [facility], [place], operated by [facility] 06/12/2021 14:03:53 Imaging Results Imaging Date Name Status LastModified by Organiz ation Details LastModified Time 12/18/2020 XR, thoracic spine, 3 view completed [facility] [address] [place], [place], [id number], 01/31/2021 16:39:05 01/10/2021 CT, chest, w/o contrast completed [facility] (Outpt Imaging) [address] [place], [address], 01/31/2021 16:39:05 09/02/2022 XR, shoulder, 2 or more view completed [facility] (Outpt Imaging) [address], [place], [address], 09/20/2022 22:28:29 Procedure Notes None recorded. Medical Equipment None Reported. Allergies No known drug allergies Medications Name Sig Start Date Stop Date Status Note LastModified by Organization Details LastModified Time prednisone 10 mg tablet 08/26 completed Not Available Not Available Not Available ofloxacin 0.3 % eye drops 08/26 completed Not Available Not Available Not Available valacyclovi r 1 gram tablet 08/26 completed Not Available Not Available Not Available meloxicam 15 mg tablet Take 1 tablet every day by oral route for 15 days. active Not Available Not Available No t Available clobetasol 0.05 % topical cream APPLY A THIN LAYER TO THE AFFECTED AREA(S) BY TOPICAL ROUTE 2 TIMES PER DAY active Not Available Not Available No t Available clotrimazol e-betametha sone 1 %-0.05 % topical cream APPLY TO THE AFFECTED AND SURROUNDI NG AREAS OF SKIN BY TOPICAL ROUTE 2 TIMES PER DAY IN THE MORNING AND EVENING FOR 2 WEEKS active Not Available Not Available No t Available ketoconazol e 2 % topical cream APPLY TO THE AFFECTED AREA(S) BY TOPICAL ROUTE ONCE DAILY ON FEET NEEDED active Not Available Not Available No t Available dietary supplement 08/26 completed Not Available Not Available Not Available Aleve 220 mg capsule Take 1 capsule every 12 hours by oral route as needed. 06/12 completed Not Available Not Available Not Available Vitals Date Recorded Body height Body mass index (BMI) Body weight Heart rate Oxygen saturation Oxygen saturation in Arterial blood by Pulse oximetry Body temperature Systolic blood pressure Diastolic blood pressure Provider Name and Address Organization Details Last Updated DateTime 1 170.18 cm 26.2 kg/m2 00698.9 3 g 66 /min 98 % 98 % 98.42 [degF] 120 mm[Hg] 72 mm[Hg] Maci Rodrigues MA [facility] [place] 1 15:30:26 Date Recorded Body height Body mass index (BMI) Body weight Heart rate Oxygen saturation Oxygen saturation in Arterial blood by Pulse oximetry Body temperature Systolic blood pressure Diastolic blood pressure Provider Name and Address Organization Details Last Updated DateTime 1 170.18 cm 26.2 kg/m2 60378.9 3 g 65 /min 99 % 99 % 98.42 [degF] 123 mm[Hg] 70 mm[Hg] Maci Rodrigues [facility] 1 16:15:50 Date Recorded Body height Body mass index (BMI) Body weight Heart rate Oxygen saturation Oxygen saturation in Arterial blood by Pulse oximetry Body temperature Systolic blood pressure Diastolic blood pressure Provider Name and Address Organization Details Last Updated DateTime 2 170.18 cm 26.2 kg/m2 77867.3 3 g 103 /min 96 % 96 % 97.7 [degF] 117 mm[Hg] 73 mm[Hg] Jackie Ru[facility]cox [facility] 2 14:14:40 Date Recorded Heart rate Provider Name an d Address Organization Details Last Updated DateTime 06/12/2021 88 /min Dexter Cho i, MD [address], [address], [facility] 06/21/2021 06:56:35 Date Recorded Body height Body mass index (BMI) Body weight Heart rate Oxygen saturation Oxygen saturation in Arterial blood by Pulse oximetry Body temperature Systolic blood pressure Diastolic blood pressure Provider Name and Address Organization Details Last Updated DateTime 3 170.18 cm 26.5 kg/m2 90281.1 1 g 70 /min 96 % 96 % 98 [degF] 138 mm[Hg] 89 mm[Hg] Jackie [facility] [place] 3 15:17:42 Date Recorded Body height Body mass index (BMI) Body weight Heart rate Oxygen saturation Oxygen saturation in Arterial blood by Pulse oximetry Body temperature Systolic blood pressure Diastolic blood pressure Provider Name and Address Organization Details Last Updated DateTime 3 170.18 cm 26.3 kg/m2 96478.5 2 g 71 /min 97 % 97 % 98.5 [degF] 143 mm[Hg] 88 mm[Hg] Radha Guerra MA [facility] [place] 3 15:32:29 Social History Question Answer Notes LastModified by Organizat ion Details LastModified Time Tobacco Smoking Status [facility] 13:12:31 Do You Have An Advance Directive? Yes Information not available 06/12/2021 What Is Your Level Of Alcohol Consumption? None Information not available 12/23/2019 Is Blood Transfusion Acceptable In An Emergency? No Information not available 06/12/2021 What Is Your Level Of Caffeine Consumption? Moderate Coffee 2 Cups Daily Information not available 06/12/2021 How Much Tobacco Do You Chew? None Information not available 12/23/2019 In The 14 Days Before Symptom Onset, Have You Had Close Contact With A Laboratory-confi rmed COVID-19 While That Case Was Ill? No Information not available 06/12/2021 In The 14 Days Before Symptom Onset, Have You Had Close Contact With A Person Who Is Under Investigation For COVID-19 While That Person Was Ill? No Information not available 06/12/2021 Have You Been To An Area Known To Be High Risk For COVID-19? No Information not available 06/12/2021 Are You Currently Employed? Yes Information not available 06/12/2021 What Type Of Diet Are You Following? REGULAR Information not available 12/23/2019 Which Illicit Or Recreational Drugs Have You Used? None Information not available 12/23/2019 Do You Or Have You Ever Used E-cigarettes Or Vape? Never Used Electronic Cigarettes Information not available 06/12/2021 What Is Your Occupation? [employer] Information not available 06/12/2021 Live Alone Or With Others? With Others ([place]), And [employer] Information not available 08/26/2022 Do You Take Precautions To Prevent Distracted Driving? Yes Information not available 12/23/2019 How Often Do You Need To Have Someone Help You When You Read Instructions, Pamphlets, Or Other Written Material From Your Doctor Or Pharmacy? Never Information not available 12/23/2019 Have You Served In The ? No Information not available 12/23/2019 Have You Or Anyone In Your Household Had Any Of The Following Symptoms In The Last 14 Days: Sore Throat, Cough, Chills, Body Aches For Unknown Reasons, Shortness Of Breath For Unknown Reasons, Loss Of Smell, Loss Of Taste, Fever At Or Greater Than 100 Degrees Fahrenheit? No Information not available 12/23/2019 Are You Or Anyone In Your Household A Health Care Provider Or Emergency Responder? No Information not available 12/23/2019 To The Best Of Your Knowledge Have You Been In Close Proximity To Any Individual Who Tested Positive For COVID-19? No Information not available 12/23/2019 *AWV ONLY* Are You Presently Prescribed Opioid Medication By PCP Or Specialist? If YES -Provider Assess The Benefit For Other, Non-opioid Pain Therapies Instead, Even If The Patient Does Not Have OUD But Is Possibly At Risk. No Information not available 12/23/2019 Have You Recently Traveled To A COVID-19 High Risk Area Or Gathering In The Last 10 Days? No Information not available 10/17/2020 What Was The Date Of Your Most Recent Tobacco Screening? 08/26/2022 Information not available 08/26/2022 How Many Children Do You Have? 2 2 Daughters Information not available 12/23/2019 Do You Use Protection During Sex? No Information not available 06/12/2021 Do You Use Your Seat Belt Or Car Seat Routinely? Yes Information not available 06/12/2021 Seat Belts Used Routinely Yes Information not available 06/12/2021 Are You Sexually Active? Yes Information not available 12/23/2019 Smoke Alarm In Home Yes Information not available 06/12/2021 Do You Have Smoke And Carbon Monoxide Detectors In Your Home? Yes Information not available 06/12/2021 At What Age Did You Start Smoking Tobacco? 0 Information not available 12/23/2019 Are You Passively Exposed To Smoke? No Information not available 12/23/2019 Do You Or Have You Ever Used Smokeless Tobacco? Never Used Smokeless Tobacco Information not available 08/31/2019 How Much Tobacco Do You Smoke? No Information not available 12/23/2019 Do You Use Sunscreen Routinely? No Information not available 12/23/2019 How Many Years Have You Smoked Tobacco? 0 Information not available 12/23/2019 Sex: Unknown Functional Status Question Answer Note LastModified by Organizat ion Details LastModified Time Are you able to walk? YESWOREST Information not available 06/12/2021 Are you able to care for yourself? Yes Information not available 08/31/2019 What is your exercise level? Occasional Information not available 12/23/2019 Mental Status None recorded. Family History Relationship Description Onset Age of this Age Resolved Age Notes LastModified by Organization Details LastModified Time Father Heart disease 60 94 [email or web address] available 12/22 14:32:37 Brother Heart disease [email or web address] Not available 2019 14:06:59 Daughter Well adult Not avail able 06/12/2021 14:01:43 Daughter Well adult Not avail able 06/12/2021 14:01:43 Sister Well adult Not availab le 06/12/2021 14:01:43 Sister Well adult Not availab le 06/12/2021 14:01:43 Mother Neoplasm of stomach [email or web address] Not available 2021 14:01:43 Medical History Condition Response Arthritis Y Allergies Y Immunizations Vaccine Type Date Status Provider Name and Address Organization Details Recorded Time COVID-19, mRNA, LNP-S, PF, 30 mcg/0.3 mL dose 08/12/2020 completed SUBHASH [place] [facility] 08/26/2022 15:12:05 COVID-19, mRNA, LNP-S, PF, 30 mcg/0.3 mL dose 09/02/2020 SUBHASH [place] [facility] 08/26/2022 15:12:05 COVID-19, mRNA, LNP-S, PF, 30 mcg/0.3 mL dose 05/08/2021 completed SUBHASH [place], [facility] 06/12/2021 14:11:45 Tdap 12/23/2019 completed SUBHASH Polo, [facility] 12/23/2019 16:09:45 pneumococcal polysaccharide PPV23 12/23/2019 completed SUBHASH Polo, [facility] 12/23/2019 16:09:46 Influenza, split virus, quadrivalent, PF 01/24/2020 completed Fermin Powers PA-C [address] [address], [place], [address], [facility] 01/24/2020 16:21:39 Influenza, split virus, quadrivalent, PF 06/12/2021 completed SUBHASH [place], [facility] 06/12/2021 16:04:25 Past Encounters Encounter ID Performer Location Encounter Start Date Encounter Closed Date Diagnosis/Indication Diagnosis SNOMED-CT Code Diagnosis ICD10 Code [id number] Dexter Bay MD Main Office [address] [facility] [address] [place] [address] 08/31/2019 11:56:03 08/31/2019 14:09:18 Tinea pedis 6598925 B35.3 [id number] Dexter Bay MD Main Office [address] [facility] [address] [place] [address] 12/23/2019 13:56:53 12/23/2019 15:32:56 Adult health examination 823791226 Z00.00 Administra tion of viral vaccine 50332043 Z23 Varicella vaccination 68 670394 Z23 Hepatitis C screening 41 3129506 Z11.59 Body mass index 25-29 - overweight 463469104 E66.3 Z68.25 Hypercholesterolemia 136 33352 E78.2 History of calculus of kidney 647578579 Z87.442 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 9 Easy bruising 910541780 R58 Obstructiv e sleep apnea syndrome 26512370 G47.33 [id number] Fermin Powers PA-C Main Office [address] [address] [place] [address] 01/24/2020 15:44:23 01/25/2020 10:51:34 Needs influenza immunization 655808942 Z23 Abdominal bloating 22253 9008 R14.0 [id number] Dexter Bay MD Main Office [address] [address] [place] [address] 02/15/2020 14:46:14 02/15/2020 16:06:22 Hepatitis C antibody detected 353095028 Z86.19 Hyperlipidemia 65451824 E78.5 Impaired f asting glycemia 102195464 R73.01 [id number] Dexter Bay MD Main Office [address] [address] [place] [address] 10/17/2020 12:41:14 10/17/2020 13:23:15 Anterior chest wall pain 396577055 R07.89 Albuminuria 713858366 R8 0.9 [id number] Dexter Bay MD Main Office [address] [address] [place] [address] 12/18/2020 14:45:26 12/18/2020 16:06:11 Chest wall pain 243011479 R07.89 Non-healin g pigmented skin lesion 484730834 L98.8 [id number] Fermin Powers PA-C Main Office [address] [address] [place] [address] 01/31/2021 15:48:47 02/02/2021 11:15:28 Chest wall pain 131277058 R07.89 Abdominal pain 03031166 R10.9 Chronic constipation 236 917311 K59.09 [id number] Dexter Bay MD Main Office [address] [address] [place] [address] 06/12/2021 14:00:48 06/12/2021 15:10:06 Adult health examination 103521973 Z00.00 Body mass index 25-29 - overweight 551706144 E66.3 Z68.26 Impaired f asting glycemia 218161859 R73.01 Hypercholesterolemia 136 41686 E78.2 History of splenectomy 627112069 Z90.81 Varicella vaccination 68 186576 Z23 Gallstone 626341525 K80. 20 Obstructiv e sleep apnea syndrome 17352841 G47.33 Screening for malignant neoplasm of colon 964965194 Z12.11 Nocturia 561014013 R35.1 Needs infl uenza immunization 813828858 Z23 Hepatitis C antibody detected 671359989 Z86.19 [id number] Dexter Bay MD Main Office [address] [facility] [address] [place] [address] 08/26/2022 15:02:03 08/26/2022 16:18:37 Adult health examination 727759198 Z00.00 Administra tion of pneumococcal vaccine 06072360 Z23 Varicella vaccination 68 366612 Z23 Body mass index 25-29 - overweight 434457958 E66.3 Z68.26 Nocturia 459531537 R35.1 History of splenectomy 779113206 Z90.81 Tinea pedis 8914600 B35. 3 Albuminuria 031073038 R8 0.9 Hypercholesterolemia 136 02919 E78.2 Impaired f asting glycemia 013507404 R73.01 Disorder of shoulder 118 735556 M75.92 [id number] Triston Robert MD Main Office [address] [facility] [address] [place] [address] 10/22/2022 14:53:40 10/22/2022 16:08:53 Contact dermatitis caused by urushiol from [place] poison oswald 673575032 L25.5 Pain of ri ght knee joint 7422638873 80890 M25.561 Health Concerns Section Related Observation LastModified by Organization Detai ls LastModified Time None Recorded Concern Status LastModified by Organization Details LastModified Time None Recorded Advance Directives Directive Y: Payers Encounter Date Sequence Insurance Name Policy Number Policy Vigil Covered Member ID Vigil Member ID Guarantor Name 12/18/2020 1 [facility] Everett Beltran [id number] Everett Beltran 01/31/2021 1 [facility] Everett Beltran [id number] Everett Beltran 06/12/2021 1 [facility] Everett Beltran [id number] Everett Beltran 08/26/2022 1 [facility] Everett Beltran [id number] Everett Beltran 10/22/2022 1 [facility] Everett Beltran [id number] Everett Beltran Notes Date Note Type Note Provider Name and Address Organization Details Recorded Time 12/18/2020 text/html Skin LesionRepor ora bypatient.Location:[facility] in Quality:painful; sore Duration:started 1 year(s) agoNotes:Reports a chronic hyper pigmented lesion groin area for a long time. Was adjacent to other lesions that he states were biopsied in the past but not able to report result and no records forwarded here. Pt unable to identify the under water assistant either. Patient presents with > 6 months of bilateral lower chest wall pain. States that it is present on awakening in the AM. No correlation to exertion. Denies dyspnea or worsening with deep breathing. Chest xray and abdominal u/s were normal. Labs unremarkable as well. Dexter Bay MD [address] [address], [place], [address], [facility] 12/19/2020 07:16:19 01/31/2021 text/html here for f/u flip st wall (rib) pain - rev. last ov note - pcp ordered tests - here to discuss results -- unremarkable ct x debri-filled stomach and constipation pt states moves bowels qod, no straining no abd pain, brbpr on no meds for the rib pain - has suffered x 5-6 months had u/s in 7.21 - rev. results also has early satiety - small meals frequently occ/rare htbn no h/o DM no h/o psychiatric meds Fermin Powers PA-C [address] [address], [place], [address], [facility] [place] 01/31/2021 17:30:07 06/12/2021 text/html Generic HPI TemplateReported bypatient.Notes:Here for physical, feels well. Seeing dentist and ophtho regularly. Dexter Bay MD [address] [address], [place], [address], [facility] 06/21/2021 07:02:20 08/26/2022 text/html Generic HPI TemplateReported bypatient.Notes:Here for physical, feels well. Seeing dentist and ophtho regularly. Dexter Bay MD [address] [address], [place], [address], [facility] 09/13/2022 07:57:40 10/22/2022 text/html He was working o [employer] more than a week ago and developed an itchy rash on his arms and legs about 1 week ago. It does not involve his face. Has pain in his right knee area for a couple of weeks. He denies any injury but spends a lot of time on his knees for work. The pain is at the back/medial aspect. He has not taken any meds. No prior problem. It hurts most when flexing past 90 degrees. Triston Robert MD [address] [address], [place], [address], [facility] 10/22/2022 18:05:14
== END 2024-04-08 11:43 | disposition home or self-care (01) ==
PROVIDERS: PCP Nurse Practitioner Primary Care; Visit Provider Internal Medicine
DX: E78.5 Hyperlipidemia, unspecified (principal); I10 Essential (primary) hypertension

== ENCOUNTER → 2024-04-08 10:50 | Outpatient (BNVA) | payer OTHER, SELFPAY | PROVIDERS: PCP Nurse Practitioner Primary Care; Visit Provider Internal Medicine | DX: E78.5 Hyperlipidemia, unspecified (principal); I10 Essential (primary) hypertension | CPT/HCPCS: 99212 ==

== ENCOUNTER → 2024-04-14 13:56 | Outpatient (REF) | payer OTHER, SELFPAY ==
--- OUTSIDE RECORDS SUMMARY | 2024-04-15 02:39 | XMS_ITS | Data Portability ---
Author Organization [employer] Address [address] [place] [address] Care Team Providers [employer]icket Sales Name Role Phone HIM CCA OTHER ARIADNA CARUSO Primary Care Provider [phone] Assessment Encounter Date Assessment Date Assessment LastModified by Organization Details LastModified Time 01/17/2024 01/17/2024 I have reviewed and agree with the assessment and plan as documented by the director hedis. I provided real time medical direction for this encounter and was immediately available to provide additional phone based assistance as needed. History as noted by director hedis. Pt reports no significant PMH although he [...] lipid panel, echocardiogram, 14 day patch cardiac care unit nurse, and ETT to assess his recent symptoms. [...] BMP, serum or plasma [email or web address], [address], 13:04:47 Referral None recorded. Procedures None recorded. Surgeries None recorded. Imaging electrocard iogram [email or web address], [address], 14:31:29 Medication Orders None recorded. Patient TargetsNo targets recorded. Patient InstructionsNo instructions recorded. Reason for Referral None Reported. Results Created Date Observation Date Name Description Value Unit Range Abnormal Flag Note LastModifiedBy Organization Detail LastModifiedTime 01/17/20 24 01/17/2024 elect claribelmarvin meenagr am No observ ation record ed. [email or web address] [address], [address], 01/17/2024 13:09:44 Result Notes None recorded. Procedures Surgical History None recorded. Imaging Results Imaging Date Name Status LastModified by Organization Details LastModified Time 01/17/2024 electrocardiogram completed [email or web address] [place], [address], 01/17/2024 13:09:44 Procedure Notes None recorded. Medical [...] Address Organization Details Last Updated DateTime 4 32345.6 8 g 98.1 [degF] 88 /min 16 [...] Diagnosis/Indication Diagnosis SNOMED-CT Code Diagnosis ICD10 Code [id number] Phill You MD Main - [address] [address] 01/17/2024 12:51:26 01/17/2024 18:23:46 Atypical chest pain 176650297 R07.89 Health Concerns Section Related Observation LastModified by Organization Detai ls LastModified Time None Recorded Concern Status LastModified by Organization Details LastModified Time None Recorded Advance Directives Directive None Recorded Payers Encounter Date Sequence Insurance Name Policy Number Policy Vigil Covered Member ID Vigil Member ID Guarantor Name 01/17/2024 1 [facility] - DOS ON OR AFTER 2022 - MEDICARE [place]VANTAGE [place] (MEDICARE REPLACEMENT/ADV ANTAGE - PPO) Everett Beltran [id number] Everett Beltran Notes Date Note Type Note Provider Name and Address Organization Details Recorded Time 01/17/2024 text/html This was a supervised home visit with director hedis Corey Roman. CRC Nurse Triage Notes (Stephanie [...] emergency treatment if needed. Kera Peralta RN Mail Opener Organization Information for Corey Roman Legal Name: [facility] Address: [address] [place] [address], [place] [address], Restaurant Shift Leader: Vaughn Zhong MD CLIA No.: [id number] Mail Opener POC Test Results from Corey Roman EKG [...] .................... .................... .................... .................... .................... .................... . Mail Opener Note From Corey Roman: Pt reporting mild [...] . Disposition: Fulfilled Phill You MD [address] [facility], [place], [address], [facility] - [facility] 01/17/2024 13:21:09
--- OUTSIDE RECORDS SUMMARY | 2024-04-15 02:39 | XMS_ITS | Continuity of Care Document ---
Author Organization [employer] Address [address] [place] [phone] Care Team Providers Care Hand Plug Shaper Name Role Phone HIM CCA OTHER ARIADNA CARUSO Primary Care Provider [phone] Assessment Encounter Date Assessment Date Assessment LastModified by Organization Details LastModified Time 01/17/2024 01/17/2024 I have reviewed and agree with the assessment and plan as documented by the customer engagement specialist. I provided real time medical direction for this encounter and was immediately available to provide additional phone based assistance as needed. History as noted by customer engagement specialist. Pt reports no significant PMH although he [...] including: lipid panel, echocardiogram, 14 day patch clinical research monitor, and ETT to assess his recent symptoms. [...] Lab BMP, serum or plasma [email or web address], [address], 13:04:47 Referral None recorded. Procedures None recorded. Surgeries None recorded. Imaging electrocard iogram [email or web address], [address], 14:31:29 Medication Orders None recorded. Patient TargetsNo targets recorded. Patient InstructionsNo instructions recorded. Reason for Referral None Reported. Results Created Date Observation Date Name Description Value Unit Range Abnormal Flag Note LastModifiedBy Organization Detail LastModifiedTime 01/17/20 24 01/17/2024 elect jeanie robledogr am No observ ation record ed. [email or web address] [address], [address], 01/17/2024 13:09:44 Result Notes None recorded. Procedures Surgical History None recorded. Imaging Results Imaging Date Name Status LastModified by Organization Details LastModified Time 01/17/2024 electrocardiogram completed [email or web address] [address] [place], [address], 01/17/2024 13:09:44 Procedure Notes None recorded. Medical [...] Address Organization Details Last Updated DateTime 4 84366.6 8 g 98.1 [degF] 88 /min 16 [...] Diagnosis/Indication Diagnosis SNOMED-CT Code Diagnosis ICD10 Code [id number] Phill You MD Main - [address] [address] 01/17/2024 12:51:26 01/17/2024 18:23:46 Atypical chest pain 523294193 R07.89 Health Concerns Section Related Observation LastModified by Organization Detai ls LastModified Time None Recorded Concern Status LastModified by Organization Details LastModified Time None Recorded Payers Encounter Date Sequence Insurance Name Policy Number Policy Vigil Covered Member ID Vigil Member ID Guarantor Name 01/17/2024 1 [facility] - DOS ON OR AFTER 2022 - MEDICARE [place]VANTAGE [place]PLACEMENT/ADV ANTAGE - PPO) Everett Beltran [id number] Everett Beltran Notes Date Note Type Note Provider Name and Address Organization Details Recorded Time 01/17/2024 text/html This was a supervised home visit with customer engagement specialist Corey Roman. CRC Nurse Triage Notes (Stephanie [...] emergency treatment if needed. Kera Peralta RN Track Worker Organization Information for Corey Roman Legal Name: [facility] Transportation Address: [address] [place] [address], Ply Cutter: Vaughn Zhong MD [facility] No.: [id number] Track Worker POC Test Results from Corey Roman [...] .................... .................... .................... .................... .................... .................... . Track Worker Note From Corey Roman: Pt reporting [...] . Disposition: Fulfilled Phill You MD [address] [facility],[address], [place], [address], [employer]NY TRUJILLO 01/17/2024 13:21:09
== END ==
LOC: HO.SL 13:56
PROVIDERS: PCP Internal Medicine; Visit Provider Internal Medicine
DX: I10 Essential (primary) hypertension (principal); E78.5 Hyperlipidemia, unspecified; G47.33 Obstructive sleep apnea (adult) (pediatric)
CPT/HCPCS: 95806

== ENCOUNTER → 2024-04-14 14:07 | Outpatient (BNV) | payer OTHER, SELFPAY | PROVIDERS: PCP Internal Medicine; Visit Provider Internal Medicine | DX: G47.33 Obstructive sleep apnea (adult) (pediatric) (principal) | CPT/HCPCS: 95806 ==

== ENCOUNTER 2024-05-04 12:36 | Outpatient (AMB) | payer OTHER, SELFPAY ==
--- OUTSIDE RECORDS SUMMARY | 2024-05-04 12:39 | XMS_ITS | Data Portability ---
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 I provided real time medical direction for this encounter and was immediately available to provide additional phone based assistance as needed. History as noted by disabilities caregiver. Pt reports no significant PMH although he [...] including: lipid panel, echocardiogram, 14 day patch conveyor monitor, and ETT to assess his recent [...] BMP, serum or plasma [email or web address], [address], 13:04:47 Referral None recorded. Procedures None recorded. Surgeries None recorded. Imaging electrocard iogram [email or web address], [address], 14:31:29 Medication Orders None recorded. Patient TargetsNo targets recorded. Patient InstructionsNo instructions recorded. Reason for Referral None Reported. Results Created Date Observation Date Name Description Value Unit Range Abnormal Flag Note LastModifiedBy Organization Detail LastModifiedTime 01/17/20 24 01/17/2024 elect claribelmarvin meenagr am No observ ation record ed. [email or web address] [address], [address], 01/17/2024 13:09:44 Result Notes None recorded. Procedures Surgical History None recorded. Imaging Results Imaging Date Name Status LastModified by Organization Details LastModified Time 01/17/2024 electrocardiogram completed [email or web address] [place], [address], 01/17/2024 13:09:44 Procedure Notes None recorded. Medical [...] Address Organization Details Last Updated DateTime 4 35789.6 8 g 98.1 [degF] 88 /min 16 [...] Diagnosis/Indication Diagnosis SNOMED-CT Code Diagnosis ICD10 Code [id number] Phill You MD Main - [address] [address] 01/17/2024 12:51:26 01/17/2024 18:23:46 Atypical chest pain 562021166 R07.89 Health Concerns Section Related Observation LastModified by Organization Detai ls LastModified Time None Recorded Concern Status LastModified by Organization Details LastModified Time None Recorded Advance Directives Directive None Recorded Payers Encounter Date Sequence Insurance Name Policy Number Policy Vigil Covered Member ID Vigil Member ID Guarantor Name 01/17/2024 1 [facility] - DOS ON OR AFTER 2022 - MEDIC[place]/ADV ANTAGE - PPO) Everett Beltran [id number] Everett Beltran Notes Date Note Type Note Provider Name and Address Organization Details Recorded Time 01/17/2024 text/html This was a supervised home visit with disabilities caregiver Corey Roman. CRC Nurse Triage Notes (Stephanie [...] emergency treatment if needed. Kera Peralta RN Network Solutions Architect Organization Information for Corey Roman Legal Name: [facility] Address: [address] [place] [address], [place] [address], Market Asset Protection Manager: Vaughn Zhong MD CLIA No.: [id number] Network Solutions Architect POC Test Results from Corey Roman EKG [...] .................... .................... .................... .................... .................... .................... . Network Solutions Architect Note From Corey Roman: Pt reporting mild [...] . Disposition: Fulfilled Phill You MD [address] [facility],[address], [place], [address], [employer] TRUJILLO 01/17/2024 13:21:09
--- OUTSIDE RECORDS SUMMARY | 2024-05-04 12:40 | XMS_ITS | Data Portability ---
Author Organization [facility], Main Office Address [address] [facility] [address] [place] [phone] Care Team Providers Care Clinical Trials Data Coordinator Name Role Phone DEXTER BAY Primary Care Provider NIKOLAS CLOUD Rack Loader Assessment No assessment recorded. Plan of Treatment Reminders Order Date Submit Date Provider Last Modified By Organization Details Last Modified Time Details Appointments None recorded. Lab lipid panel, serum 2021 022 [facility], [address], [address], [facility] [place], [address], 12:28:49 HbA1c (hemoglobin A1c), blood 2021 022 [facility], [address], [address], [facility] [place], [address], 10:27:51 CMP, serum or plasma 2021 022 [facility], [address], [address], [facility] [place], [address], 12:28:47 PSA, serum or plasma - Screening 2021 022 [facility], [address], [address], [place], [address], 12:42:37 urinalysis, complete 2022 023 [facility], [address], [address], [place], [address], 3 15:39:14 CMP, serum or plasma 2022 023 [facility], [address], [address], [place], [address], 3 10:47:03 lipid panel, serum 2022 023 [facility], [address], [address], [place], [address], 3 10:47:04 HbA1c (hemoglobin A1c), blood 2022 023 [facility], [address], [address], [place], [address], 3 13:03:17 PSA, serum or plasma - Screening 2022 023 [facility], [address], [address], [place], [address], 3 10:57:32 Referral dermatologi referral - for eval of pt with non healing groin lesion 2020 021 [email or web address] Molly Tarango MD, [address] [facility] , [place], [address], 1 09:53:19 nutritionis t/dietitian referral 2021 022 [email or web address] Not available 2 15:45:56 nutritionis t/dietitian referral [...] for persistent lower thoracic pain. 2020 021 [facility] ([facility]), [address], [place], [address], 1 12:44:48 XR, shoulder, 2 or more view - for eval of left shoulder protuberanc e near AC joint 2022 023 [facility], [address], [place], [address], 3 08:29:33 Medication Orders clotrimazol e-betametha sone 1 %-0.05 % topical cream 2022 023 [facility] #[id number], [address], [place], [id number], 3 16:15:08 clobetasol 0.05 % topical cream 2022 023 [facility] #[id number], [address], [place], [id number], 3 16:01:38 meloxicam 15 mg tablet 2022 023 [facility] #[id number], [address], [place], [id number], 3 16:01:36 Patient TargetsNo targets recorded. Patient Instructions Encounter Date Encounter Id Patient Instructions Last Modified By Organization Details Last Modified Time 01/31/2021 [id number] rec. laxaclear (generic for miralax at [employer]) 1/2 - 1 scoop in 8 oz. [...] improvement pmadden Not available 01/31/2021 17:08:47 06/12/2021 [id number] prediabetes: care instructions awychowski Not available 06/12/2021 14:58:30 sleep apnea: care instructions awychowski Not available 06/12/2021 14:58:30 Prostate Cancer Screening awychowski Not available 06/12/2021 14:58:30 When You Want to Lose Weight: Care Instructions awychowski Not available 06/12/2021 14:58:30 Nutrition Referral and Weight Management Follow-up Information awychowski Not available 06/12/2021 14:58:30 08/26/2022 [id number] athlete's foot: care instructions awychowski Not available 08/26/2022 16:10:17 prediabetes: care instructions awychowski Not available 08/26/2022 16:10:17 Prostate Cancer Screening awychowski Not available 08/26/2022 16:10:17 When You Want to Lose Weight: Care Instructions [email or web address] Not available 08/26/2022 16:10:17 Nutrition Referral and Weight Management Follow-up Information [email or web address] Not available 08/26/2022 16:10:17 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 for Referral 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 Referral for N on-healing pigmented skin lesion for eval of pt with non healing groin lesion Referring Physician: Family [facility], Encounter Date: 12/18/2020 Wire Tinner/dietitian Refer ral for Body mass index 25-29 - overweight Referring Physician: Family [facility] Medicine, Encounter Date: 06/12/2021 Wire Tinner/dietitian Refer ral for Body mass index 25-29 [...] Available [facility] [address] [place], [address], 06/20/2021 10:27:51 06/20/19 22 06/20/2021 COMPR EHENS JANET METAB OLIC PANL glucose 97 mg/dL (70-99 ) Not Available [facility] [address] [place], [address], 06/20/2021 12:28:47 06/20/19 22 06/20/2021 COMPR EHENS JANET METAB OLIC PANL BUN 18 mg/dL (8-23) Not Available [facility] [address] [place], [address], 06/20/2021 12:28:47 06/20/19 22 06/20/2021 COMPR EHENS JANET METAB OLIC PANL creatinine 0.9 mg/dL (0.7-1 .2) Not Available [facility] [address] [place], [address], 06/20/2021 12:28:47 06/20/19 22 06/20/2021 COMPR EHENS JANET METAB OLIC PANL sodium 140 mmol/ L (133-1 45) Not Available [facility] [address] [place], [address], 06/20/2021 12:28:47 06/20/19 22 06/20/2021 COMPR EHENS JANET METAB OLIC PANL potassium 4.9 mmol/ L (3.6-5 .2) Not Available [facility] [address] [place], [address], 06/20/2021 12:28:47 06/20/19 22 06/20/2021 COMPR EHENS JANET METAB OLIC PANL chloride 104 mmol/ L (98-10 7) Not Available [facility] [address] [place], [address], 06/20/2021 12:28:47 06/20/19 22 06/20/2021 COMPR EHENS JANET METAB OLIC PANL bicarbonate 28 mmol/ L (22-29 ) Not Available [facility] [address] [place], [address], 06/20/2021 12:28:47 06/20/19 22 06/20/2021 COMPR EHENS JANET METAB OLIC PANL anion gap 8 (4-17) Not Available [facility] [address] [place], [address], 06/20/2021 12:28:47 06/20/19 22 06/20/2021 COMPR EHENS JANET METAB OLIC PANL albumin 4.5 gm/dL (3.4-4 .8) Not Available [facility] [address] [place], [address], 06/20/2021 12:28:47 06/20/19 22 06/20/2021 COMPR EHENS JANET METAB OLIC PANL calcium 8.8 mg/dL (8.6-1 0.5) Not Available [facility] [address] [place], [address], 06/20/2021 12:28:47 06/20/19 22 06/20/2021 COMPR EHENS JANET METAB OLIC PANL bilirubin,to jordon 0.7 mg/dL (0-1.2 ) Not Available [facility] [address] [place], [address], 06/20/2021 12:28:47 06/20/19 22 06/20/2021 COMPR EHENS JANET METAB OLIC PANL total protein 6.6 gm/dL (6.2-8 .2) Not Available [facility] [address] [place], [address], 06/20/2021 12:28:47 06/20/19 22 06/20/2021 COMPR EHENS JANET METAB OLIC PANL Ag ratio 2.1 Not Available [facility] [address] [place], [address], 06/20/2021 12:28:47 06/20/19 22 06/20/2021 COMPR EHENS JANET METAB OLIC PANL AST 26 U/L (0-40) Not Available [facility] [address] [place], [address], 06/20/2021 12:28:47 06/20/19 22 06/20/2021 COMPR EHENS JANET METAB OLIC PANL alk phos 102 U/L (40-12 9) Not Available [facility] [address] [place], [address], 06/20/2021 12:28:47 06/20/19 22 06/20/2021 COMPR EHENS JANET METAB OLIC PANL ALT 21 U/L (0-41) Not Available [facility] [address] [place], [address], 06/20/2021 12:28:47 06/20/19 22 06/20/2021 COMPR EHENS JANET METAB OLIC PANL estimated GFR creatinine 91 mL/mi n/1.7 3_M2 Not Available [facility] [address] [place], [address], 06/20/2021 12:28:47 06/20/19 22 06/20/2021 LIPID PANEL cholesterol, total 263 mg/dL (<200) high Not Available [facility] [address] [place], [address], 06/20/2021 12:28:49 06/20/19 22 06/20/2021 LIPID PANEL triglyceride 98 mg/dL (<150) Not Available [facility] [address], [address], 06/20/2021 12:28:49 06/20/19 22 06/20/2021 LIPID PANEL HDL chol 52 mg/dL (>39) Not Available [facility] [address], [address], 06/20/2021 12:28:49 06/20/19 22 06/20/2021 LIPID PANEL LDL cholesterol, calculated 191 mg/dL (0-130 ) high Not Available [facility] [address], [address], 06/20/2021 12:28:49 06/20/19 22 06/20/2021 LIPID PANEL non HDL cholesterol (calc) 211 mg/dL (<160) high Not Available [facility] [address], [address], 06/20/2021 12:28:49 06/20/19 22 06/20/2021 PSA SCREE N PSA 1.5 NG/mL (0-4) TEST PERFO RMED USING THE HALIE ELECT HALIE MILLU MINES CENCE TOTAL PSA ASSAY . PSA VALUE S OBTAI HUSAM WITH OTHER ASSAY METHO DS OR KITS CANNO T BE USED INTER MCDONNELL EABLY . Not Available [facility] [address] [place], [address], 06/20/2021 12:42:37 09/03/19 23 09/02/2022 COMPR EHENS JANET METAB OLIC PANL glucose 102 mg/dL (70-99 ) high Not Available [facility] [address] [place], [address], 09/02/2022 10:47:02 09/03/19 23 09/02/2022 COMPR EHENS JANET METAB OLIC PANL BUN 21 mg/dL (8-23) Not Available [facility] [address] [place], [address], 09/02/2022 10:47:02 09/03/19 23 09/02/2022 COMPR EHENS JANET METAB OLIC PANL creatinine 0.9 mg/dL (0.7-1 .2) Not Available [facility] [address] [place], [address], 09/02/2022 10:47:02 09/03/19 23 09/02/2022 COMPR EHENS JANET METAB OLIC PANL sodium 142 mmol/ L (133-1 45) Not Available [facility] [address] [place], [address], 09/02/2022 10:47:02 09/03/19 23 09/02/2022 COMPR EHENS JANET METAB OLIC PANL potassium 4.5 mmol/ L (3.6-5 .2) Not Available [facility] [address] [place], [address], 09/02/2022 10:47:02 09/03/19 23 09/02/2022 COMPR EHENS JANET METAB OLIC PANL chloride 106 mmol/ L (98-10 7) Not Available [facility] [address] [place], [address], 09/02/2022 10:47:02 09/03/19 23 09/02/2022 COMPR EHENS JANET METAB OLIC PANL bicarbonate 28 mmol/ L (22-29 ) Not Available [facility] [address] [place], [address], 09/02/2022 10:47:02 09/03/19 23 09/02/2022 COMPR EHENS JANET METAB OLIC PANL anion gap 8 (4-17) Not Available [facility] [address] [place], [address], 09/02/2022 10:47:02 09/03/19 23 09/02/2022 COMPR EHENS JANET METAB OLIC PANL albumin 4.3 gm/dL (3.4-4 .8) Not Available [facility] [address] [place], [address], 09/02/2022 10:47:02 09/03/19 23 09/02/2022 COMPR EHENS JANET METAB OLIC PANL calcium 8.8 mg/dL (8.6-1 0.5) Not Available [facility] [address] [place], [address], 09/02/2022 10:47:02 09/03/19 23 09/02/2022 COMPR EHENS JANET METAB OLIC PANL bilirubin,to jordon 0.3 mg/dL (0-1.2 ) Not Available [facility] [address] [place], [address], 09/02/2022 10:47:02 09/03/19 23 09/02/2022 COMPR EHENS JANET METAB OLIC PANL total protein 6.4 gm/dL (6.2-8 .2) Not Available [facility] [address] [place], [address], 09/02/2022 10:47:02 09/03/19 23 09/02/2022 COMPR EHENS JANET METAB OLIC PANL Ag ratio 2.0 Not Available [facility] [address] [place], [address], 09/02/2022 10:47:02 09/03/19 23 09/02/2022 COMPR EHENS JANET METAB OLIC PANL AST 25 U/L (0-40) Not Available [facility] [address] [place], [address], 09/02/2022 10:47:02 09/03/19 23 09/02/2022 COMPR EHENS JANET METAB OLIC PANL alk phos 96 U/L (40-12 9) Not Available [facility] [address] [place], [address], 09/02/2022 10:47:02 09/03/19 23 09/02/2022 COMPR EHENS JANET METAB OLIC PANL ALT 28 U/L (0-41) Not Available [facility] [address] [place], [address], 09/02/2022 10:47:02 09/03/19 23 09/02/2022 COMPR EHENS [...] Available [facility] [address] [place], [address], 09/02/2022 10:47:02 09/03/19 23 09/02/2022 LIPID PANEL cholesterol, total 238 mg/dL (<200) high Not Available [facility] [address] [place], [address], 09/02/2022 10:47:04 09/03/19 23 09/02/2022 LIPID PANEL triglyceride 108 mg/dL (<150) Not Available [facility] [address] [place], [address], 09/02/2022 10:47:04 09/03/19 23 09/02/2022 LIPID PANEL HDL chol 50 mg/dL (>39) Not Available [facility] [address] [place], [address], 09/02/2022 10:47:04 09/03/19 23 09/02/2022 LIPID PANEL LDL cholesterol, calculated 166 mg/dL (0-130 ) high Not Available [facility] [address] [place], [address], 09/02/2022 10:47:04 09/03/19 23 09/02/2022 LIPID PANEL non HDL cholesterol (calc) 188 mg/dL (<160) high Not Available [facility] [address] [place], [address], 09/02/2022 10:47:04 09/03/19 23 09/02/2022 PSA SCREE N PSA 1.4 NG/mL (0-4) TEST PERFO RMED USING THE HALIE ELECT [employer] MILLU MINES CENCE TOTAL PSA ASSAY . PSA VALUE S OBTAI HUSAM WITH OTHER ASSAY METHO DS OR KITS CANNO T BE USED INTER [place]CDONNELL EABLY . Not Available [facility] [address] [place], [address], 09/02/2022 10:57:32 09/03/1909/02/2022 HEMOG LOBIN A1C hemoglobin [...] Available [facility] [address] [place], [address], 09/02/2022 13:03:17 09/03/19 23 09/02/2022 LAB ONLY URINA LYSIS appear/color LIGHT YELLO W CLEAR Not Available [facility] [address] [place], [address], 09/02/2022 15:39:14 09/03/19 23 09/02/2022 LAB ONLY URINA LYSIS sp. gravity 1.025 (1.002 -1.030 ) Not Available [facility] [address] [place], [address], 09/02/2022 15:39:14 09/03/19 23 09/02/2022 LAB ONLY URINA LYSIS urine pH 6.5 (5.0-8 .0) Not Available [facility] [address] [place], [address], 09/02/2022 15:39:14 09/03/19 23 09/02/2022 LAB ONLY URINA LYSIS urine albumin TRACE (neg) abnormal Not Available [facility] [address] [place], [address], 09/02/2022 15:39:14 09/03/19 23 09/02/2022 LAB ONLY URINA LYSIS urine glucose NEGATI VE (neg) Not Available [facility] [address] [place], [address], 09/02/2022 15:39:14 09/03/19 23 09/02/2022 LAB ONLY URINA LYSIS urine ketones NEGATI VE (neg) Not Available [facility] [address] [place], [address], 09/02/2022 15:39:14 09/03/19 23 09/02/2022 LAB ONLY URINA LYSIS urine bilirubin NEGATI VE (neg) Not Available [facility] [address] [place], [address], 09/02/2022 15:39:14 09/03/19 23 09/02/2022 LAB ONLY URINA LYSIS urine hemoglobin NEGATI VE (neg) Not Available [facility] [address], [address], 09/02/2022 15:39:14 09/03/19 23 09/02/2022 LAB ONLY URINA LYSIS urine nitrite NEGATI VE (neg) Not Available [facility] [address] [place], [address], 09/02/2022 15:39:14 09/03/19 23 09/02/2022 LAB ONLY URINA LYSIS urine leukocyte NEGATI VE (neg) Not Available [facility] [address] [place], [address], 09/02/2022 15:39:14 09/03/1909/02/2022 LAB ONLY URINA LYSIS urobilinogen NORMAL mg/dL (norm) Not Available [facility] [address], [address], 09/02/2022 15:39:14 09/03/19 23 09/02/2022 LAB ONLY URINA LYSIS urine WBCs <1 /hpf (0-5) Not Available [facility] [address] [place], [address], 09/02/2022 15:39:14 09/03/1909/02/2022 LAB ONLY URINA LYSIS urine RBCs 2 /hpf (0-3) Not Available [facility] [address], [address], 09/02/2022 15:39:14 09/03/19 23 09/02/2022 LAB ONLY URINA LYSIS mucus SLIGHT /lpf Not Available [facility] [address], [place], [address], 09/02/2022 15:39:14 12/19/19 21 12/18/2020 XR, thora [...] pm Patien t Class: Outpat ient pmadden [facility] (Outpt Imaging) [address] , [place], [address], 01/31/2021 16:39:05 01/11/20 21 01/10/2021 CT, chest , w/o contr ast CT Chest W/O Contra st INDICA TION: CHEST WALL PAIN. COMPAR JOSUE: Chest radiog raphs, most recent 021. TECHNI QUE: Helica l CT scan of the chest withou t IV contra st, format ora in 3 planes . Weight -based protoc [...] splene ctomy. Surgic al clips in the piano accompanist ior spleni c fossa. Stomac h is debris -fille d likely a recent meal, colon is stool- filled sugges ting consti pation . BONES: Mild degene rative change s of the visual ized spine. No acute abnorm ality. IMPRES ASHLEY: Unrema rkable . I have person ally review ed the images and I agree with this report . WSN: [id number] Orderi ng Physic padmini: Dexter Swartz Dictat ed By: Oswald Ashley DO Dictat ed Date/T al: 3:20 pm Review ed By: Mikaela Jenkins MD Signed By: Mikaela Jenkins MD Signed Date/T al: 3:25 pm Transc ribed By: MARCELLAB Transc ribed Date/T al: 2:44 pm Patien t Class: Outpat ient pmadden [facility] (Outpt Imaging) [address] , [place], [address], 01/31/2021 16:39:05 09/03/19 23 09/02/2022 XR, shoul [...] involv ing the left should er. WSN: [id number] Orderi ng Physic padmini: Dexter Swartz Dictat ed By: Trenton Mckinley MD, V Dictat ed Date/T al: 8:26 am Review ed By: Hailey marie MD, Trenton De La Paz Signed By: Trenton Mckinley MD, V Signed Date/T al: 8:26 am Transc ribed By: OLIVERIO Transc ribed Date/T al: 8:24 am Patien t Class: Outpat ient [facility] (Outpt Imaging) [address] [place] [address], [address], 09/20/2022 22:28:29 Result Notes None recorded. Problems Name Problem SNOMED Code Status Onset Date Resolution Date Notes Provider Name and Address Organization Details Recorded Time Hypercholester olemia 50323166 Active 2018 Dexter Bay MD [address] [address], [place], [address], [facility] 9 12:52:54 Benign prostatic hyperplasia 270434269 Active 2019 Dexter Bay MD [address] [address], [place], [address], [facility] 0 06:48:15 History of calculus of kidney 499570741 Active 2019 Dexter Bay MD [address] [address], [place], [address], [facility] 0 06:48:26 Body mass index 25-29 - overweight 309495930 Active 2019 Dexter Bay MD [address] [place], [address], [facility] 0 15:05:10 Impaired fasting glycemia 488795130 Active 2019 Dexter Bay MD [address] [facility], [place], [address], [facility] 0 20:27:30 Hepatitis C antibody detected 202718604 Active 2019 Dexter Bay MD [address] [facility], [place], [address], [facility] 0 20:35:12 Albuminuria 575878746 Active 2020 Dexter Bay MD [address] [facility] [address], [place], [address], [facility] 1 12:01:29 Gallstone 330683552 Active 2020 Dexter Bay MD [address] [facility] [address], [place], [address], [facility] 1 13:29:38 Chest wall pain 457741929 Active 2020 Dexter Bay MD [address] [facility] [address], [place], [address], [facility] 1 07:11:55 History of splenectomy 604268263 Active 2020 Dexter Bay MD [address] [facility] [address], [place], [address], [facility] 1 15:49:20 Obstructive sleep apnea syndrome 69198195 Active 2021 Dexter Bay MD [address] [facility] [address], [place], [address], [facility] 2 14:57:39 Prediabetes 472390362 Active 2022 Dexter Bay MD [address] [facility] [address], [place], [address], [facility] 3 07:25:19 Problem Notes None recorded. Procedures Surgical History Date Name Laterality Status Provider Name and Address Organization Details Recorded Time 02/08/20 20 cardiovascular stress testing completed Dexter Bay MD [address] [address], [place], [address], [facility] 02/11/2020 14:08:48 02/11/20 15 Shoulder joint surgery completed Dexter Bay MD [address] [address], [place], [address], [facility] 12/23/2019 14:43:33 01/29/20 14 Colonoscopy completed Dexter Bay MD [address] [address], [place], [address], [facility] 12/23/2019 14:43:52 splenectomy completed Dexter Bay MD [address] [address], [place], [address], [facility] 12/23/2019 06:49:28 Knee Surgery completed Dexter Bay MD [address], [address], [facility] 12/23/2019 14:42:55 Hernia Repair completed Jackie George [facility] 06/12/2021 14:03:53 Imaging Results Imaging Date Name Status LastModified by Organiz ation Details LastModified Time 12/18/2020 XR, thoracic spine, 3 view completed [facility] (Outpt Imaging) [address] [place], [address], 01/31/2021 16:39:05 01/10/2021 CT, chest, w/o contrast completed [facility] (Outpt Imaging) [address] [place], [address], 01/31/2021 16:39:05 09/02/2022 XR, shoulder, 2 or more view completed [facility] (Outpt Imaging) [address], [place], [address], 09/20/2022 22:28:29 Procedure Notes None recorded. Medical [...] Updated DateTime 1 170.18 cm 26.2 kg/m2 25432.9 3 g 66 /min 98 % 98 % 98.42 [degF] 120 mm[Hg] 72 mm[Hg] Maci Rodirgues MA [facility] [place] 1 15:30:26 Date Recorded Body height Body mass index (BMI) Body weight Heart rate Oxygen saturation Oxygen saturation in Arterial blood by Pulse oximetry Body temperature Systolic blood pressure Diastolic blood pressure Provider Name and Address Organization Details Last Updated DateTime 1 170.18 cm 26.2 kg/m2 03693.9 3 g 65 /min 99 % 99 % 98.42 [degF] 123 mm[Hg] 70 mm[Hg] Maci Rodrigues MA [facility] 1 16:15:50 Date Recorded Body height Body mass index (BMI) Body weight Heart rate Oxygen saturation Oxygen saturation in Arterial blood by Pulse oximetry Body temperature Systolic blood pressure Diastolic blood pressure Provider Name and Address Organization Details Last Updated DateTime 2 170.18 cm 26.2 kg/m2 52282.3 3 g 103 /min 96 % 96 % 97.7 [degF] 117 mm[Hg] 73 mm[Hg] [facility] 2 14:14:40 Date Recorded Heart rate Provider Name an d Address Organization Details Last Updated DateTime 06/12/2021 88 /min eDxter Cho i, MD [address], [address], [facility] 06/21/2021 06:56:35 Date Recorded Body height Body mass index (BMI) Body weight Heart rate Oxygen saturation Oxygen saturation in Arterial blood by Pulse oximetry Body temperature Systolic blood pressure Diastolic blood pressure Provider Name and Address Organization Details Last Updated DateTime 3 170.18 cm 26.5 kg/m2 05672.1 1 g 70 /min 96 % 96 % 98 [degF] 138 mm[Hg] 89 mm[Hg] Jackie George [facility] [place] 3 15:17:42 Date Recorded Body height Body mass index (BMI) Body weight Heart rate Oxygen saturation Oxygen saturation in Arterial blood by Pulse oximetry Body temperature Systolic blood pressure Diastolic blood pressure Provider Name and Address Organization Details Last Updated DateTime 3 170.18 cm 26.3 kg/m2 21462.5 2 g 71 /min 97 % 97 % 98.5 [degF] 143 mm[Hg] 88 mm[Hg] Radha Guerra MA [facility] [place] 3 15:32:29 Social History Question Answer Notes LastModified by Organizat ion Details LastModified Time Tobacco Smoking Status [facility] 13:12:31 Do You Have An Advance [...] not available 06/12/2021 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 [employer] Information not available 06/12/2021 Live [...] Allergies Y Immunizations Vaccine Type Date Status Note Provider Nam e and Address Organization Details Recorded Time COVID-19, mRNA, LNP-S, PF, 30 mcg/0.3 mL dose 1 completed SUBHASH [place] [facility] 08/26/2022 15:12:05 COVID-19, mRNA, LNP-S, PF, 30 mcg/0.3 mL dose 1 completed SUBHASH [place] [facility] 08/26/2022 15:12:05 COVID-19, mRNA, LNP-S, PF, 30 mcg/0.3 mL dose 2 completed SUBHASH [place], [facility] 06/12/2021 14:11:45 Tdap 0 completed SUBHASH Pol[place], [facility] 12/23/2019 16:09:45 pneumococcal polysaccharide PPV23 0 completed SUBHASH Polo, [facility] 12/23/2019 16:09:46 Influenza, split virus, quadrivalent, PF 0 completed Fermin Powers PA-C [address] [facility] [address], [place], [address], [facility] 01/24/2020 16:21:39 Influenza, split virus, quadrivalent, PF 2 completed SUBHASH [place], [facility] 06/12/2021 16:04:25 Past Encounters Encounter ID Performer Location Encounter Start Date Encounter Closed Date Diagnosis/Indication Diagnosis SNOMED-CT Code Diagnosis ICD10 Code [id number] Dexter Bay MD Main Office [address] [facility] [address] [place] [address] 08/31/2019 11:56:03 08/31/2019 14:09:18 Tinea pedis 1478362 B35.3 [id number] Dexter Bay MD Main Office [address] [facility] [address] [place] [address] 12/23/2019 13:56:53 12/23/2019 15:32:56 Adult health examination 487587922 Z00.00 Administra tion of viral vaccine 33628872 Z23 Varicella vaccination 68 033502 Z23 Hepatitis C screening 41 3910023 Z11.59 Body mass index 25-29 - overweight 821507618 E66.3 Z68.25 Hypercholesterolemia 136 11133 E78.2 History of calculus of kidney 788421642 Z87.442 History of splenectomy 117787096 Z90.81 Screening for malignant neoplasm of prostate 867359195 Z12.5 Chest pain 88457535 R07. 9 Easy bruising 832285793 R58 Obstructiv e sleep apnea syndrome 89640389 G47.33 [id number] Fermin Teran Office [address] [address] [place] [address] 01/24/2020 15:44:23 01/25/2020 10:51:34 Needs influenza immunization 309574005 Z23 Abdominal bloating 11621 9008 R14.0 [id number] Dexter Bay MD Main Office [address] [address] [place] [address] 02/15/2020 14:46:14 02/15/2020 16:06:22 Hepatitis C antibody detected 395136727 Z86.19 Hyperlipidemia 27760199 E78.5 Impaired f asting glycemia 494234934 R73.01 [id number] Dexter Bay MD Main Office [address] [address] [place] [address] 10/17/2020 12:41:14 10/17/2020 13:23:15 Anterior chest wall pain 518241009 R07.89 Albuminuria 402694724 R8 0.9 [id number] Dexter Bay MD Main Office [address] [address] [place] [address] 12/18/2020 14:45:26 12/18/2020 16:06:11 Chest wall pain 260680537 R07.89 Non-healin g pigmented skin lesion 634704532 L98.8 [id number] Fermin Powers PA-C Main Office [address] [address] [place] [address] 01/31/2021 15:48:47 02/02/2021 11:15:28 Chest wall pain 552542745 R07.89 Abdominal pain 69222563 R10.9 Chronic constipation 236 365516 K59.09 [id number] Dexter Bay MD Main Office [address] [address] [place] [address] 06/12/2021 14:00:48 06/12/2021 15:10:06 Adult health examination 717836783 Z00.00 Body mass index 25-29 - overweight 251164189 E66.3 Z68.26 Impaired f asting glycemia 792840955 R73.01 Hypercholesterolemia 136 18480 E78.2 History of splenectomy 991577597 Z90.81 Varicella vaccination 68 970499 Z23 Gallstone 781436789 K80. 20 Obstructiv e sleep apnea syndrome 62013167 G47.33 Screening for malignant neoplasm of colon 939498363 Z12.11 Nocturia 498379754 R35.1 Needs infl uenza immunization 341020077 Z23 Hepatitis C antibody detected 858702556 Z86.19 [id number] Dexter Bay MD Main Office [address] [facility] [address] [place] [address] 08/26/2022 15:02:03 08/26/2022 16:18:37 Adult health examination 039878960 Z00.00 Administra tion of pneumococcal vaccine 92373006 Z23 Varicella vaccination 68 171549 Z23 Body mass index 25-29 - overweight 478328468 E66.3 Z68.26 Nocturia 025005496 R35.1 History of splenectomy 992836769 Z90.81 Tinea pedis 3471015 B35. 3 Albuminuria 966302354 R8 0.9 Hypercholesterolemia 136 06495 E78.2 Impaired f asting glycemia 484797321 R73.01 Disorder of shoulder 118 002161 M75.92 [id number] Triston Robert MD Main Office [address] [facility] [address] [place] [address] 10/22/2022 14:53:40 10/22/2022 16:08:53 Contact dermatitis caused by urushiol from [facility] oswald 065310956 L25.5 Pain of ri ght knee joint 7364246547 49305 M25.561 Health Concerns Section Related Observation LastModified by Organization Detai ls LastModified Time None Recorded Concern Status LastModified by Organization Details LastModified Time None Recorded Advance Directives Directive Y: Payers Encounter Date Sequence Insurance Name Policy Number Policy Vigil Covered Member ID Vigil Member ID Guarantor Name 12/18/2020 1 [facility] Everett Beltran [id number] Everett Beltran 01/31/2021 1 [facility] ([facility] Everett Beltran [id number] Evreett Beltran 06/12/2021 1 [facility] ([facility] Everett Beltran [id number] Everett Beltran 08/26/2022 1 [facility] ([facility] Everett Beltran [id number] Everett Beltran 10/22/2022 1 [facility] ([facility] Everett Beltran [id number] Everett Beltran Notes Date Note Type [...] forwarded here. 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 Patient presents with > 6 months of bilateral lower chest wall pain. States that it is present on awakening in the AM. No correlation to exertion. Denies dyspnea or worsening with deep breathing. Chest xray and abdominal u/s were normal. Labs unremarkable as well. Dexter Bay MD [address] [address], [place], [address], [facility] 12/19/2020 07:16:19 01/31/2021 text/html here for f/u [...] h/o psychiatric meds Fermin Powers PA-C [address] [address], [place], [address], [facility] [place] 01/31/2021 17:30:07 06/12/2021 text/html Generic HPI TemplateReported bypatient.Notes:Here for physical, feels well. Seeing dentist and ophtho regularly. Dexter Bya MD [address] [address], [place], [address], [facility] 06/21/2021 07:02:20 08/26/2022 text/html Generic HPI TemplateReported bypatient.Notes:Here for physical, feels well. Seeing dentist and ophtho regularly. Dexter Bay MD [address] [address], [place], [address], [facility] 09/13/2022 07:57:40 10/22/2022 text/html He was working o [employer] more than a week ago and developed [...] past 90 degrees. Triston Robert MD [address] [address], [place], [address], [facility] 10/22/2022 18:05:14
--- NOTE | 2024-05-04 13:06 | MHC.OFFVIS ---
Vital Signs 05/04/24 13:07 Height 5 ft 7 in Weight 168 lb BMI 26.3 Intake Visit Reasons: INP-HENRIK Intake Note: Patient presents for HENRIK Allergies No Known Allergies Allergy (Verified 05/04/24 13:11) HPI Comments Details: 68 year old male comes to us for home sleep study evaluation. His home sleep study results 04/21/2024 Moderate to Severe HENRIK- AHI 16, snoring for 6%, O2 lowest to 67%, and <88% for 42min. He is fatigued and started on Lisiniprol 5mg PO daily for HTN, however he is managing with Dietary changes and Lifestyle modifications, along with exercise 3-5x a week. His c/o loud snoring, gasping for air at night time, denies choking. He falls asleep on the couch after coming home from work daily. 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 He goes to bed at 10pm wakes up at 4am daily with about 2-3x bathroom trips, has nocturia. He started taking vitamins to improve his sleep quality and still continues to have daytime fatigue. He does not smoke or drink alcohol. He has a sweet tooth , and that is his downfall he says. He denies any other issue. [facility] Surgical History No pertinent past surgical history Family History Brother Substance use disorder Social History Housing: House Patient Tobacco Use Status: Never used Tobacco e-Cigarette/Vaping Use: Never Used service: No Current occupational status: employed Cognitive needs: No Hearing needs: No Vision needs: Yes Review of Systems Const All systems reviewed & are unremarkable except as noted in HPI and below ENT Reports Normal hearing present Neuro Reports Normal hearing present Physical Exam Vital Signs: BMI result Body Mass Index 26.3 Const General: comfortable and no acute distress Nutritional Appearance: average body habitus Orientation/consciousness: patient oriented x3 Eyes Pupils: Equal, round and reactive pupils present Neck Neck: Yes full ROM and Yes supple Resp Effort & Inspection: normal respiratory effort and able to speak in complete sentences Neuro General: patient oriented x3 and moves all extremities Cranial nerves: Yes CN's II-XII intact bilaterally, Yes Facial sensation intact/muscles of mastication intact, Yes Equal, round and reactive pupils present, Yes Normal accommodation reflex present, Yes Bilaterally intact EOM present, Yes Normal facial strength present, Yes Midline tongue present, Yes Normal hearing present, Yes Ability to bilaterally rotate head present and Yes Ability to bilaterally elevate shoulders present Gait exam (Neuro): Normal gait present Motor exam (neuro): 5/5 motor strength present throughout and Normal motor muscle tone present throughout Deep tendon reflexes (DTR's): Right triceps reflex intensity grade: 2+, Left triceps reflex intensity grade: 2+, Rt Biceps (C5, C6): 2+, Left biceps reflex intensity grade: 2+, Right brachioradialis reflex intensity grade: 2+, Left brachioradialis reflex intensity grade: 2+, Right patellar reflex intensity grade: 2+ and Left patellar reflex intensity grade: 2+ Psych Appearance: grossly normal Speech and movement: Normal speech and movement present Affect: normal affect Thought process: Normal thought process present Thought content: Normal thought content present Insight: Good insight present (Psych) Judgement: Good judgement present (Psych) Results Reviewed Results Reviewed: His home sleep study results 04/21/2024 Moderate to Severe HENRIK- AHI 16, snoring for 6%, O2 lowest to 67%, and <88% for 42min. 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 Try masks that fit well, and nose pillows, liners and silk mask, if pressures don't work well, call [facility] and adjust pressures. Sleep hygiene, dark room, low temp to 68degrees, no devices in bed, reading is helpful, limit fluids 2hours prior to bedtime. #1 modifiable RF for Cardiovascular events is HTN, review Dash diet, Mediterranean diet guidelines. F/U with sleep clinic in 3 months to evaluate sleep and RLS/ PLMS? Coding Level of Care Code Est Pt Level 3 (13042) Diagnoses HENRIK (obstructive sleep apnea) G47.33 HTN (hypertension) I10 Hyperlipidemia, unspecified hyperlipidemia type E78.5 Hyperlipidemia type: unspecified Sleep Questionnaire Difficulty falling asleep: No Difficulty staying asleep?: Yes Number of arousals: 3x Snoring: Yes Witnessed apneas: No Gasping arousals: Yes Nocturia: Yes GERD: No Vivid dreams: No Acting out dreams: No Abnormal behavior in sleep: No Abnormal movements in sleep: Yes Morning headaches: No Excessive daytime sleepiness: Yes Daytime naps: Yes Restless legs: Yes Hallucinations: No Sleep paralysis: No Drop attacks: No Sleep Study: Yes () CPAP: Yes (in process )
[2024-05-04 13:07] VITALS: BMI 26.3
== END 2024-05-04 13:40 | disposition home or self-care (01) ==
PROVIDERS: PCP Internal Medicine; Visit Provider Physician Assistant Medical
DX: G47.33 Obstructive sleep apnea (adult) (pediatric) (principal); I10 Essential (primary) hypertension; E78.5 Hyperlipidemia, unspecified
CPT/HCPCS: 99213

== ENCOUNTER → 2024-05-04 12:36 | Outpatient (BNVA) | payer OTHER, SELFPAY | PROVIDERS: PCP Internal Medicine; Visit Provider Physician Assistant Medical | DX: G47.33 Obstructive sleep apnea (adult) (pediatric) (principal); E78.5 Hyperlipidemia, unspecified; I10 Essential (primary) hypertension | CPT/HCPCS: 99212 ==

== ENCOUNTER 2024-07-16 14:08 | Outpatient (REF) | payer MEDICARE, SELFPAY ==
--- NOTE | ~2024-07-16 | XR_ITS ---
EXAMINATION: XR LUMBAR SPINE 2-3 VIEWS HISTORY: M54.9 - Dorsalgia, unspecified COMPARISON: There are no prior studies for comparison. FINDINGS: AP, lateral, and coned down views of the lumbar spine are submitted. Osseous mineralization is normal. Five nonrib-bearing lumbar vertebral bodies are identified, maintaining normal height and alignment without evidence of fracture or spondylolisthesis. Minimal degenerative changes are noted with anterior spurring. The visualized paraspinal soft tissues are unremarkable. XR/XR lumbar spine 2-3V IMPRESSION: Minimal degenerative changes. Electronically signed by: Clint Collins MD 07/19/2024 02:29 PM EDT
--- NOTE | ~2024-07-16 | XR_ITS ---
EXAMINATION: XR THORACIC SPINE 2 VIEWS HISTORY: M54.9 - Dorsalgia, unspecified COMPARISON: There are no prior studies for comparison. FINDINGS: AP and lateral views of the thoracic spine are submitted. Osseous mineralization is normal. The vertebral bodies maintain normal height and alignment without evidence of fracture or subluxation. Minimal degenerative changes are noted with endplate spurring and loss of disc space height. The visualized paraspinal soft tissues are unremarkable. XR/XR thoracic spine 2V IMPRESSION: Minimal degenerative changes. Electronically signed by: Clint Collins MD 07/19/2024 02:28 PM EDT
== END 2024-07-16 14:09 | disposition home or self-care (01) ==
LOC: HO.HMGCX 14:08
PROVIDERS: PCP Internal Medicine; Visit Provider Internal Medicine
DX: M54.9 Dorsalgia, unspecified (principal); G89.29 Other chronic pain; I20.89 Other forms of angina pectoris; R00.2 Palpitations
CPT/HCPCS: 72070; 72100; 96127; 99212

== ENCOUNTER → 2024-07-16 14:08 | Outpatient (AMB) | payer MEDICARE, SELFPAY ==
--- NOTE | 2024-07-16 14:19 | MHC.PC.OV ---
Vital Signs 07/16/24 14:25 Height 5 ft 7 in Weight 167 lb BMI 26.2 BP 138/78 Blood Pressure Location Lt brachial Position Sitting Pulse 80 Pulse Source Pulse Oximeter Temp 98.7 F Temp Source Oral Pulse Oximetry (%) 99 Oxygen Delivery Method Room Air Intake Visit Reasons: Heart skipping, heart pounding, headaches Intake Note: Pt is here today for a sick visit. Pt c/o heart skipping, heart pounding and headaches. Allergies No Known Allergies Allergy (Verified 07/16/24 14:26) Medication List - Last Reconciled 07/16/24 by Victorina Chris MD cholecalciferol (vitamin D3) 50 mcg PO DAILY diclofenac sodium 1% (Aleve (diclofenac)) 2 grams topical QID fish oil-dha-epa PO sildenafil 50 mg PO DAILY PRN Tobacco use date assessed: 07/16/24 Last assessed Fall Risk: 07/16/24 Dental Screening Dental Screen Date: 07/16/24 HPI Heart skipping, heart pounding, headaches HPI Details Patient presents complaining of recurrent symptoms of irregular heartbeat skipping beats on and off becoming more frequent the last few months. Patient denies chest pain nausea vomiting shortness of breath. He usually notices the symptoms when trying to fall asleep at night. Patient denies any nocturnal symptoms. Patient also reports chronic midback stiffness and dull pain when waking up every morning usually improving with movement. He denies any pain radiating to lower extremities, change in bowel habits or urination. Patient denies any exercise induced palpitations or chest pain, back pain. [facility] Surgical History No pertinent past surgical history Family History Brother Substance use disorder Social History Housing: House Patient Tobacco Use Status: Never used Tobacco e-Cigarette/Vaping Use: Never Used service: No Current occupational status: employed Cognitive needs: No Hearing needs: No Vision needs: Yes Questionnaire PHQ-9 Over the last 2 weeks, how often have you been bothered by any of the following problems? 1. Little interest or pleasure in doing things: not at all 2. Feeling down, depressed, or hopeless: not at all 3. Trouble falling or staying asleep, or sleeping too much: nearly every day 4. Feeling tired or having little energy: not at all 5. Poor appetite or overeating: not at all 6. Feeling bad about yourself - or that you are a failure or have let yourself or your family down: not at all 7. Trouble concentrating on things, such as reading the newspaper or watching television: not at all 8. Moving or speaking so slowly that other people could have noticed. Or the opposite - being so fidgety or restless that you have been moving around a lot more than usual: not at all 9. Thoughts that you would be better off or of hurting yourself in some way: not at all Total score: 3 Depression Screening Interpretation: Negative Depression Screening Done: Yes 79511 - PHQ-9 Billing: Yes Source: Developed by Drs. Clint Hunt, April Tomas, Yung Wade and colleagues, with an educational myla from [employer]. Thrive Questionnaire Date Thrive assessed: 07/16/24 I am a: Patient What is your living situation today?: I have a steady place to live Within the past 12 months, did the food you bought not last and you didn't have the money to get more?: Never true Within the past 12 months, did you worry whether your food would run out before you got money to buy more?: Never true Do you have trouble paying for medicines?: No Do you have trouble getting transportation to medical appointments?: No Do you have trouble paying your heating and electricity bill?: No Do you have trouble taking care of your child, family member or friend?: No Do you have trouble with day-to-day activities such as bathing, preparing meals, shopping, managing finances, etc.?: No Are you currently unemployed and looking for a job?: No Are you interested in more education?: No Please select the resources that you would like help with: None Currently or been in a relationship where the following occur: No concerns reported THRIVE Score: 0 AUDIT C Alcohol Use Questionnaire (AUDIT-C) 1. How often do you have a drink containing alcohol?: Never 3. How often do you have six or more drinks on one occasion?: Never Total Score: 0 AMBER-7 AMB Questionnaire AMBER-7 Date AMBER - 7 assessed: 07/16/24 Feeling nervous, anxious, or on edge: 0 = Not at all Not being able to stop or control worryin = Not at all Worrying too much about different things: 0 = Not at all Trouble relaxin = Not at all Being so restless that it is hard to sit still: 0 = Not at all Becoming easily annoyed or irritable: 0 = Not at all Feeling afraid as if something awful might happen: 0 = Not at all Total AMBER-7 score (0-4 normal; 5-9 mild; 10-14 moderate; 15-21 severe): 0 Source: Developed by Drs. Clint Hunt, April Tomas, Yung Wade and colleagues, with an educational myla from [employer]. AMBER-7 Assessment Billing AMBER-7 Assessment Tool: AMBER-7 Assessment 53033 Review of Systems Const All systems reviewed & are unremarkable except as noted in HPI and below Eyes Reports no additional complaints ENT Reports no additional complaints Card Reports no additional complaints Resp Reports no additional complaints GI Reports no additional complaints Reports no additional complaints Physical exam (Primary Care) Vital Signs: Last Vital Signs Temp 98.7 F 07/16/24 14:25 Pulse 80 07/16/24 14:25 BP 138/78 07/16/24 14:25 Pulse Ox 99 07/16/24 14:25 Oxygen Delivery Method Room Air 07/16/24 14:25 BMI result Body Mass Index 26.2 Tobacco/Smoking Status: Tobacco use Status Tobacco use date assessed 07/16/24 07/16/24 14:27 Patient Tobacco Use Status Never used Tobacco 07/16/24 14:20 e-Cigarette/Vaping Use Never Used 07/16/24 14:20 PHQ-9: PHQ-9 Score PHQ-9: Total score 3 07/16/24 14:38 Depression Screening Interpretation: Negative Thrive Assessment: Date of Thrive Assessment Date Thrive assessed 07/16/24 07/16/24 14:27 Currently or been in a relationship where the following occur: No concerns reported Const General: no acute distress HENMT Head: Yes normal to inspection Throat: Yes posterior oropharynx normal Eyes General: appearance normal, both eyes and all related structures Neck Neck: Yes no lymphadenopathy and Yes supple Resp Effort & Inspection: normal respiratory effort Auscultation: clear to auscultation bilaterally Cardio Rhythm: regular rhythm Heart sounds: S1 normal heart sound present and S2 normal heart sound present GI Inspection: Yes normal to inspection Palpation (GI): Soft to palpation Percussion: Yes normal to percussion Auscultation: normal bowel sounds Back/Spine/Pelvis Other: There is no spinal or paraspinal tenderness, straight leg rising 90 degrees bilaterally Coding Level of Care Code Est Pt Level 4 (65262) Diagnoses Chronic back pain M54.9; G89.29 Angina at rest I20.89 Palpitations R00.2 Additional Codes AMBER-7 Assessment Billing - AMBER-7 Assessment Tool: AMBER-7 Assessment 48423 ([id number]) PHQ-9 - 57043 - PHQ-9 Billing: Yes ([id number]) Assessment & Plan Assessment & Plan (1) Chronic back pain: Code(s): M54.9 - Dorsalgia, unspecified; G89.29 - Other chronic pain Category: Medical Plan: Obtain x-ray of thoracic and lumbar spine PT was recommended but patient declined (2) Angina at rest: Code(s): I20.89 - Other forms of angina pectoris Category: Medical Plan: EKG showed normal sinus rhythm no ST-T change Obtain nuclear stress test to rule out ischemia with the risk factors of hyperlipidemia male sex. (3) Palpitations: Comment: 3 day Holter 03/2024 frequent PVCs, Echo 02/2024 LVEF 63%, mild septal asymmetric hypertrophy, basal inferior and inferolateral segment hypokinetic Code(s): R00.2 - Palpitations Category: Medical Plan: Obtain stress test to evaluate for reversible ischemia starting low dose of beta ruby discussed with the patient by he declined. Patient will return in October with a fasting labs before Orders: Orders AMB EKG-In Office Today I10 - Essential (primary) hypertension, R00.2 - Palpitations XR thoracic spine 2V Today G89.29 - Other chronic pain, M54.9 - Dorsalgia, unspecified XR lumbar spine 2-3V Today G89.29 - Other chronic pain, M54.9 - Dorsalgia, unspecified CA stress test Today I20.89 - Other forms of angina pectoris NM cardiolite stress test Today I20.89 - Other forms of angina pectoris Medications: Discontinued lisinopril Discontinued Reason: Doctor's Order 5 mg PO DAILY 90 tabs 0RF
[2024-07-16 14:25] VITALS: BP 138/78; PULSE 80; TEMP 37.1; O2SAT 99; BMI 26.2
--- OUTSIDE RECORDS SUMMARY | 2024-07-16 15:51 | XMS_ITS | Data Portability ---
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 Plan of Treatment Reminders Order Date Submit Date Provider Last Modified By Organization Details Last Modified Time Details Appointments None recorded. Lab urinalysis, complete 2022 023 [facility], [address], [address], [place], [address], 3 15:39:14 CMP, serum or plasma 2022 023 [facility], [address], [address], [place], [address], 3 10:47:03 lipid panel, serum 2022 023 [facility], [address], [address], [place], [address], 3 10:47:04 HbA1c (hemoglobin A1c), blood 2022 023 [facility], [address], [address], [place], [address], 3 13:03:17 PSA, serum or plasma - Screening 2022 023 [facility], [address], [address], [place], [address], 3 10:57:32 lipid panel, serum 2021 022 [facility], [address], [address], [place], [place], [address], 2 12:28:49 HbA1c (hemoglobin A1c), blood 2021 022 [facility], [address], [address], [place], [address], 2 10:27:51 CMP, serum or plasma 2021 022 [facility], [address], [address], [place], [address], 2 12:28:47 PSA, serum or plasma - Screening 2021 022 [facility], [address], [address], [place], [address], 2 12:42:37 Referral nutritionis t/dietitian referral 2022 023 [email or web address] Not available 3 16:18:37 nutritionis t/dietitian referral 2021 022 [email or web address] Not available 2 15:45:[address] referral - for eval of pt with non healing groin lesion 2020 021 katharina Tarango MD, [address] [facility] [place], [address], 1 09:53:19 Procedures None recorded. Surgeries None recorded. Imaging XR, shoulder, 2 or more view - for eval of left shoulder protuberanc e near AC joint [address] [facility], [address] [place], [address], 3 08:29:33 XR, thoracic spine, 4 or more view - for eval of thoracic radicular pain, rule out lower thoracic disc disease. 2020 021 [email or web address] Not available 10:10:10 CT, chest, w/o contrast - rule out pulmonary/c hest wall etiology for persistent lower thoracic pain. 2020 [facility] [address], [place], [address], 1 12:44:48 Medication Orders clobetasol 0.05 % topical cream 2022 023 [facility][id number], [address], [place], [id number], 3 16:01:38 meloxicam 15 mg tablet 2022 023 [facility] #[id number], [address], [place], [id number], 3 16:01:36 clotrimazol e-betametha sone 1 %-0.05 % topical cream 2022 023 [facility] #[id number], [address], [place], [id number], 3 16:15:08 Patient TargetsNo targets recorded. Patient Instructions Encounter Date Encounter Id Patient Instructions Last Modified By Organization Details Last Modified Time 01/31/2021 [id number] rec. laxaclear (generic for miralax at [facility]) 1/2 - 1 scoop in 8 oz. of any fluid 1-2x/daily. ? ? ?rec. eat less bananas and drink more water. rec. eat more grapes, oranges, and pears. in future, if no bm x 3 days, then use 1-2 tabs of senna or dulcolax as needed. pmadden Not available 01/31/2021 17:07:00 Patient will follow up and keep appointment as scheduled. -- consider ugis vs ct a/p if no sig improvement pmadden Not available 01/31/2021 17:08:47 06/12/2021 [id number] prediabetes: care instructions [email or web address] Not available 06/12/2021 14:58:30 sleep apnea: care instructions awychowski Not available 06/12/2021 14:58:30 Prostate Cancer Screening awychowski Not available 06/12/2021 14:58:30 When You Want to Lose Weight: Care Instructions awychowski Not available 06/12/2021 14:58:30 Nutrition Referral and Weight Management Follow-up Information awychowski Not available 06/12/2021 14:58:30 08/26/2022 [id number] athlete's foot: care instructions awychowski Not available 08/26/2022 16:10:17 prediabetes: care instructions awychowski Not available 08/26/2022 16:10:17 Prostate Cancer Screening awychowski Not available 08/26/2022 16:10:17 When You Want to Lose Weight: Care Instructions awychowski Not available 08/26/2022 16:10:17 Nutrition Referral and Weight Management Follow-up Information awychowski Not available 08/26/2022 16:10:17 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 for N on-healing pigmented skin lesion for eval of pt with non healing groin lesion Referring Physician: Family Yoana Medicine, Encounter Date: 12/18/2020 Parent Trainer/dietitian Refer ral for Body mass index 25-29 - overweight Referring Physician: Family Yoana Medicine, Encounter Date: 06/12/2021 Parent Trainer/dietitian Refer ral for Body mass index 25-29 - overweight Referring Physician: Family Gabe Lees, Encounter Date: 08/26/2022 Results Created Date Observation [...] of [facility]ini [place] and Appli ed Resea rc and Educa tion Volum e 43, Suppl ement 1 Not Available [facility] (Centralized Electronic Ordering - All Locations) Patient Can Go To The Location Of Their Choice, 06/20/2021 10:27:51 06/20/19 22 06/20/2021 COMPR EHENS JANET METAB OLIC PANL glucose 97 mg/dL (70-99 ) Not Available [facility] (Centralized Electronic Ordering - All Locations) Patient Can Go To The Location Of Their Choice, 06/20/2021 12:28:47 06/20/19 22 06/20/2021 COMPR EHENS JANET METAB OLIC PANL BUN 18 mg/dL (8-23) Not Available [facility] (Centralized Electronic Ordering - All Locations) Patient Can Go To The Location Of Their Choice, 06/20/2021 12:28:47 06/20/19 22 06/20/2021 COMPR EHENS JANET METAB OLIC PANL creatinine 0.9 mg/dL (0.7-1 .2) Not Available [facility] (Centralized Electronic Ordering - All Locations) Patient Can Go To The Location Of Their Choice, 06/20/2021 12:28:47 06/20/1906/20/2021 COMPR EHENS JANET METAB OLIC PANL sodium 140 mmol/ L (133-1 45) Not Available [facility] (Centralized Electronic Ordering - All Locations) Patient Can Go To The Location Of Their Choice, 06/20/2021 12:28:47 06/20/1906/20/2021 COMPR EHENS JANET METAB OLIC PANL potassium 4.9 mmol/ L (3.6-5 .2) Not Available [facility] (Centralized Electronic Ordering - All Locations) Patient Can Go To The Location Of Their Choice, 06/20/2021 12:28:47 06/20/1906/20/2021 COMPR EHENS JANET METAB OLIC PANL chloride 104 mmol/ L (98-10 7) Not Available [facility] (Centralized Electronic Ordering - All Locations) Patient Can Go To The Location Of Their Choice, 06/20/2021 12:28:47 06/20/1906/20/2021 COMPR EHENS JANET METAB OLIC PANL bicarbonate 28 mmol/ L (22-29 ) Not Available [facility] (Centralized Electronic Ordering - All Locations) Patient Can Go To The Location Of Their Choice, 06/20/2021 12:28:47 06/20/1906/20/2021 COMPR EHENS JANET METAB OLIC PANL anion gap 8 (4-17) Not Available [facility] (Centralized Electronic Ordering - All Locations) Patient Can Go To The Location Of Their Choice, 06/20/2021 12:28:47 06/20/1906/20/2021 COMPR EHENS JANET METAB OLIC PANL albumin 4.5 gm/dL (3.4-4 .8) Not Available [facility] (Centralized Electronic Ordering - All Locations) Patient Can Go To The Location Of Their Choice, 06/20/2021 12:28:47 06/20/1906/20/2021 COMPR EHENS JANET METAB OLIC PANL calcium 8.8 mg/dL (8.6-1 0.5) Not Available [facility] (Centralized Electronic Ordering - All Locations) Patient Can Go To The Location Of Their Choice, 06/20/2021 12:28:47 06/20/1906/20/2021 COMPR EHENS JANET METAB OLIC PANL bilirubin,to jordon 0.7 mg/dL (0-1.2 ) Not Available [facility] (Centralized Electronic Ordering - All Locations) Patient Can Go To The Location Of Their Choice, 06/20/2021 12:28:47 06/20/1906/20/2021 COMPR EHENS JANET METAB OLIC PANL total protein 6.6 gm/dL (6.2-8 .2) Not Available [facility] (Centralized Electronic Ordering - All Locations) Patient Can Go To The Location Of Their Choice, 06/20/2021 12:28:47 06/20/1906/20/2021 COMPR EHENS JANET METAB OLIC PANL Ag ratio 2.1 Not Available [facility] (Centralized Electronic Ordering - All Locations) Patient Can Go To The Location Of Their Choice, 06/20/2021 12:28:47 06/20/1906/20/2021 COMPR EHENS JANET METAB OLIC PANL AST 26 U/L (0-40) Not Available [facility] (Centralized Electronic Ordering - All Locations) Patient Can Go To The Location Of Their Choice, 06/20/2021 12:28:47 06/20/1906/20/2021 COMPR EHENS JANET METAB OLIC PANL alk phos 102 U/L (40-12 9) Not Available [facility] (Centralized Electronic Ordering - All Locations) Patient Can Go To The Location Of Their Choice, 06/20/2021 12:28:47 06/20/1906/20/2021 COMPR EHENS JANET METAB OLIC PANL ALT 21 U/L (0-41) Not Available [facility] (Centralized Electronic Ordering - All Locations) Patient Can Go To The Location Of Their Choice, 06/20/2021 12:28:47 06/20/1906/20/2021 COMPR EHENS JANET METAB OLIC PANL estimated GFR creatinine 91 mL/mi n/1.7 3_M2 Not Available [facility] (Centralized Electronic Ordering - All Locations) Patient Can Go To The Location Of Their Choice, 06/20/2021 12:28:47 06/20/1906/20/2021 LIPID PANEL cholesterol, total 263 mg/dL (<200) high Not Available [facility] (Centralized Electronic Ordering - All Locations) Patient Can Go To The Location Of Their Choice, 06/20/2021 12:28:49 06/20/1906/20/2021 LIPID PANEL triglyceride 98 mg/dL (<150) Not Available [facility] (Centralized Electronic Ordering - All Locations) Patient Can Go To The Location Of Their Choice, 06/20/2021 12:28:49 06/20/1906/20/2021 LIPID PANEL HDL chol 52 mg/dL (>39) Not Available [facility] (Centralized Electronic Ordering - All Locations) Patient Can Go To The Location Of Their Choice, 06/20/2021 12:28:49 06/20/1906/20/2021 LIPID PANEL LDL cholesterol, calculated 191 mg/dL (0-130 ) high Not Available [facility] (Centralized Electronic Ordering - All Locations) Patient Can Go To The Location Of Their Choice, 06/20/2021 12:28:49 06/20/1906/20/2021 LIPID PANEL non HDL cholesterol (calc) 211 mg/dL (<160) high Not Available [facility] (Centralized Electronic Ordering - All Locations) Patient Can Go To The Location Of Their Choice, 06/20/2021 12:28:49 06/20/1906/20/2021 PSA SCREE N PSA 1.5 NG/mL (0-4) TEST PERFO RMED USING THE HALIE ELECT HALIE MILLU MINES CENCE TOTAL PSA ASSAY . PSA VALUE S OBTAI HUSAM WITH OTHER ASSAY METHO DS OR KITS CANNO T BE USED INTER MCDONNELL EABLY . Not Available [facility] (Centralized Electronic Ordering - All Locations) Patient Can Go To The Location Of Their Choice, 06/20/2021 12:42:37 09/03/19 23 09/02/2022 COMPR EHENS JANET METAB OLIC PANL glucose 102 mg/dL (70-99 ) high Not Available [facility] (Centralized Electronic Ordering - All Locations) Patient Can Go To The Location Of Their Choice, 09/02/2022 10:47:02 09/03/1909/02/2022 COMPR EHENS JANET METAB OLIC PANL BUN 21 mg/dL (8-23) Not Available [facility] (Centralized Electronic Ordering - All Locations) Patient Can Go To The Location Of Their Choice, 09/02/2022 10:47:02 09/03/1909/02/2022 COMPR EHENS JANET METAB OLIC PANL creatinine 0.9 mg/dL (0.7-1 .2) Not Available [facility] (Centralized Electronic Ordering - All Locations) Patient Can Go To The Location Of Their Choice, 09/02/2022 10:47:02 09/03/1909/02/2022 COMPR EHENS JANET METAB OLIC PANL sodium 142 mmol/ L (133-1 45) Not Available [facility] (Centralized Electronic Ordering - All Locations) Patient Can Go To The Location Of Their Choice, 09/02/2022 10:47:02 09/03/1909/02/2022 COMPR EHENS JANET METAB OLIC PANL potassium 4.5 mmol/ L (3.6-5 .2) Not Available [facility] (Centralized Electronic Ordering - All Locations) Patient Can Go To The Location Of Their Choice, 09/02/2022 10:47:02 09/03/1909/02/2022 COMPR EHENS JANET METAB OLIC PANL chloride 106 mmol/ L (98-10 7) Not Available [facility] (Centralized Electronic Ordering - All Locations) Patient Can Go To The Location Of Their Choice, 09/02/2022 10:47:02 09/03/1909/02/2022 COMPR EHENS JANET METAB OLIC PANL bicarbonate 28 mmol/ L (22-29 ) Not Available [facility] (Centralized Electronic Ordering - All Locations) Patient Can Go To The Location Of Their Choice, 09/02/2022 10:47:02 09/03/1909/02/2022 COMPR EHENS JANET METAB OLIC PANL anion gap 8 (4-17) Not Available [facility] (Centralized Electronic Ordering - All Locations) Patient Can Go To The Location Of Their Choice, 09/02/2022 10:47:02 09/03/1909/02/2022 COMPR EHENS JANET METAB OLIC PANL albumin 4.3 gm/dL (3.4-4 .8) Not Available [facility] (Centralized Electronic Ordering - All Locations) Patient Can Go To The Location Of Their Choice, 09/02/2022 10:47:02 09/03/1909/02/2022 COMPR EHENS JANET METAB OLIC PANL calcium 8.8 mg/dL (8.6-1 0.5) Not Available [facility] (Centralized Electronic Ordering - All Locations) Patient Can Go To The Location Of Their Choice, 09/02/2022 10:47:02 09/03/1909/02/2022 COMPR EHENS JANET METAB OLIC PANL bilirubin,to jordon 0.3 mg/dL (0-1.2 ) Not Available [facility] (Centralized Electronic Ordering - All Locations) Patient Can Go To The Location Of Their Choice, 09/02/2022 10:47:02 09/03/1909/02/2022 COMPR EHENS JANET METAB OLIC PANL total protein 6.4 gm/dL (6.2-8 .2) Not Available [facility] (Centralized Electronic Ordering - All Locations) Patient Can Go To The Location Of Their Choice, 09/02/2022 10:47:02 09/03/1909/02/2022 COMPR EHENS JANET METAB OLIC PANL Ag ratio 2.0 Not Available [facility] (Centralized Electronic Ordering - All Locations) Patient Can Go To The Location Of Their Choice, 09/02/2022 10:47:02 09/03/1909/02/2022 COMPR EHENS JANET METAB OLIC PANL AST 25 U/L (0-40) Not Available [facility] (Centralized Electronic Ordering - All Locations) Patient Can Go To The Location Of Their Choice, 09/02/2022 10:47:02 09/03/1909/02/2022 COMPR EHENS JANET METAB OLIC PANL alk phos 96 U/L (40-12 9) Not Available [facility] (Centralized Electronic Ordering - All Locations) Patient Can Go To The Location Of Their Choice, 09/02/2022 10:47:02 09/03/1909/02/2022 COMPR EHENS JANET METAB OLIC PANL ALT 28 U/L (0-41) Not Available [facility] (Centralized Electronic Ordering - All Locations) Patient Can Go To The Location Of Their Choice, 09/02/2022 10:47:02 09/03/1909/02/2022 COMPR EHENS JANET METAB OLIC PANL estimated GFR creatinine 95 mL/mi n/1.7 3_M2 Creat inine based estim ated glome rular filtr ation (eGFR ) in adult s is calcu lated using the Natio nal Kidne y Found ation recom rakesh d 2020 CKD-E PI equat ion. Estim ates GFR from serum creat inine , age and sex. Not Available [facility] (Centralized Electronic Ordering - All Locations) Patient Can Go To The Location Of Their Choice, 09/02/2022 10:47:02 09/03/1909/02/2022 LIPID PANEL cholesterol, total 238 mg/dL (<200) high Not Available [facility] (Centralized Electronic Ordering - All Locations) Patient Can Go To The Location Of Their Choice, 09/02/2022 10:47:04 09/03/1909/02/2022 LIPID PANEL triglyceride 108 mg/dL (<150) Not Available [facility] (Centralized Electronic Ordering - All Locations) Patient Can Go To The Location Of Their Choice, 09/02/2022 10:47:04 09/03/1909/02/2022 LIPID PANEL HDL chol 50 mg/dL (>39) Not Available [facility] (Centralized Electronic Ordering - All Locations) Patient Can Go To The Location Of Their Choice, 09/02/2022 10:47:04 09/03/1909/02/2022 LIPID PANEL LDL cholesterol, calculated 166 mg/dL (0-130 ) high Not Available [facility] (Centralized Electronic Ordering - All Locations) Patient Can Go To The Location Of Their Choice, 09/02/2022 10:47:04 09/03/1909/02/2022 LIPID PANEL non HDL cholesterol (calc) 188 mg/dL (<160) high Not Available [facility] (Centralized Electronic Ordering - All Locations) Patient Can Go To The Location Of Their Choice, [id number] 09/02/2022 10:47:04 09/03/19 23 09/02/2022 PSA SCREE N PSA 1.4 NG/mL (0-4) TEST PERFO RMED USING THE HALIE ELECT HALIE MILLU MINES CENCE TOTAL PSA ASSAY . PSA VALUE S OBTAI HUSAM WITH OTHER ASSAY METHO DS OR KITS CANNO T BE USED INTER MCDONNELL EABLY . Not Available [facility] (Centralized Electronic Ordering - All Locations) Patient Can Go To The Location Of Their Choice, [id number] 09/02/2022 10:57:32 09/03/19 23 09/02/2022 HEMOG LOBIN A1C hemoglobin A1C 5.8 % [...] of Clini [place] and Appli ed Resea rc and Educa tion Volum e 43, Suppl ement 1 Not Available [facility] (Centralized Electronic Ordering - All Locations) Patient Can Go To The Location Of Their Choice, [id number] 09/02/2022 13:03:17 09/03/19 23 09/02/2022 LAB ONLY URINA LYSIS appear/color LIGHT YELLO W CLEAR Not Available [facility] (Centralized Electronic Ordering - All Locations) Patient Can Go To The Location Of Their Choice, 09/02/2022 15:39:14 09/03/1909/02/2022 LAB ONLY URINA LYSIS sp. gravity 1.025 (1.002 -1.030 ) Not Available [facility] (Centralized Electronic Ordering - All Locations) Patient Can Go To The Location Of Their Choice, 09/02/2022 15:39:14 09/03/1909/02/2022 LAB ONLY URINA LYSIS urine pH 6.5 (5.0-8 .0) Not Available [facility] (Centralized Electronic Ordering - All Locations) Patient Can Go To The Location Of Their Choice, 09/02/2022 15:39:14 09/03/1909/02/2022 LAB ONLY URINA LYSIS urine albumin TRACE (neg) abnormal Not Available [facility] (Centralized Electronic Ordering - All Locations) Patient Can Go To The Location Of Their Choice, 09/02/2022 15:39:14 09/03/1909/02/2022 LAB ONLY URINA LYSIS urine glucose NEGATI VE (neg) Not Available [facility] (Centralized Electronic Ordering - All Locations) Patient Can Go To The Location Of Their Choice, 09/02/2022 15:39:14 09/03/1909/02/2022 LAB ONLY URINA LYSIS urine ketones NEGATI VE (neg) Not Available [facility] (Centralized Electronic Ordering - All Locations) Patient Can Go To The Location Of Their Choice, 09/02/2022 15:39:14 09/03/1909/02/2022 LAB ONLY URINA LYSIS urine bilirubin NEGATI VE (neg) Not Available [facility] (Centralized Electronic Ordering - All Locations) Patient Can Go To The Location Of Their Choice, 09/02/2022 15:39:14 09/03/1909/02/2022 LAB ONLY URINA LYSIS urine hemoglobin NEGATI VE (neg) Not Available [facility] (Centralized Electronic Ordering - All Locations) Patient Can Go To The Location Of Their Choice, 09/02/2022 15:39:14 05/01/20 23 09/02/2022 LAB ONLY URINA LYSIS urine nitrite NEGATI VE (neg) Not Available [facility] (Centralized Electronic Ordering - All Locations) Patient Can Go To The Location Of Their Choice, 09/02/2022 15:39:14 09/03/1909/02/2022 LAB ONLY URINA LYSIS urine leukocyte NEGATI VE (neg) Not Available [facility] (Centralized Electronic Ordering - All Locations) Patient Can Go To The Location Of Their Choice, 09/02/2022 15:39:14 09/03/1909/02/2022 LAB ONLY URINA LYSIS urobilinogen NORMAL mg/dL (norm) Not Available [facility] (Centralized [facility] Ordering - All Locations) Patient Can Go To The Location Of Their Choice, 09/02/2022 15:39:14 09/03/1909/02/2022 LAB ONLY URINA LYSIS urine WBCs <1 /hpf (0-5) Not Available [facility] (Centralized Electronic Ordering - All Locations) Patient Can Go To The Location Of Their Choice, 09/02/2022 15:39:14 09/03/1909/02/2022 LAB ONLY URINA LYSIS urine RBCs 2 /hpf (0-3) Not Available [facility] (Centralized Electronic Ordering - All Locations) Patient Can Go To The Location Of Their Choice, 09/02/2022 15:39:14 09/03/1909/02/2022 LAB ONLY URINA LYSIS mucus SLIGHT /lpf Not Available [facility] (Centralized Electronic Ordering - All Locations) Patient Can Go To The Location Of Their Choice, [id number] 09/02/2022 15:39:14 12/19/1912/18/2020 XR, thora cic spine , 3 view [...] pm Patien t Class: Outpat ient pmadden [facility] (Outpt Imaging) [address], [place], [address], 01/31/2021 16:39:05 01/11/20 21 01/10/2021 CT, chest [...] splene ctomy. 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 Stomac h is debris -fille d likely a recent meal, colon is stool- filled sugges thereseg consti pation . BONES: Mild degene rative change s of the visual ized spine. No acute abnorm ality. IMPRES ASHLEY: Unrema rkable . I have person ally review ed the images and I agree with this report . WSN: [id number] Orderranjeet osborne Physic padmini: Dexter Swartz Dictat ed By: Ashley Oswald Tila Dictat ed Date/T al: 3:20 pm Review ed By: Mikaela Jenkins MD Signed By: Mikaela Jenkins MD Signed Date/T al: 3:25 pm Transc ribed By: OLIVERIO Transc ribed Date/T al: 2:44 pm Patien t Class: Outpat ient pmadden [facility] (Outpt Imaging) [address] [place], [address], 01/31/2021 16:39:05 09/03/19 23 09/02/2022 XR, shoul [...] involv ing the left should er. WSN: [id number] Orderi dylon Physic padmini: Dexter Swartz Dictat ed By: Hailey marie MD, Trenton De La Paz Dictat ed Date/T al: 8:26 am Review ed By: Hailey marie MD, Trenton De La Paz Signed By: Hailey marie MD, Trenton De La Paz Signed Date/T al: 8:26 am Transc ribed By: OLIVERIO Transc ribed Date/T al: 8:24 am Patien t Class: [facility]pat [facility] [address] [place], [address], 09/20/2022 22:28:29 Result Notes None recorded. Problems Name Problem SNOMED Code Status Onset Date Resolution Date Notes Provider Name and Address Organization Details Recorded Time Hypercholester olemia 96679038 Active 2018 Dexter Bay MD [address] [address], [place], [address], [facility] 9 12:52:54 Benign prostatic hyperplasia 379056693 Active 2019 Dexter Bay MD [address] [address], [place], [address], [facility] 0 06:48:15 History of calculus of kidney 189857358 Active 2019 Dexter Bay MD [address] [address], [place], [address], [facility] 0 06:48:26 Body mass index 25-29 - overweight 383387627 Active 2019 Dexter Bay MD [address] [address], [place], [address], [facility] 0 15:05:10 Impaired fasting glycemia 421592972 Active 2019 Dexter Bay MD [address] [address], [place], [address], [facility] 0 20:27:30 Hepatitis C antibody detected 489620385 Active 2019 Dexter Bay MD [address] [address], [place], [address], [facility] 0 20:35:12 Albuminuria 430094211 Active 2020 Dexter Bay MD [address] [address], [place], [address], [facility] 1 12:01:29 Gallstone 662233798 Active 2020 Dexter Bay MD [address] [facility] [address], [place], [address], [facility] 1 13:29:38 Chest wall pain 112565995 Active 2020 Dexter Bay MD [address] [address], [facility] [place], [address], [facility] 1 07:11:55 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 Procedures Surgical History Date Name Laterality Status Provider Name and Address Organization Details Recorded Time 02/08/20 20 cardiovascular stress testing completed Dexter Bay MD [address] [address], [place], [address], [facility] 02/11/2020 14:08:48 02/11/20 15 Shoulder joint surgery completed Dexter Bay MD [address] [address], [place], [address], [facility] 12/23/2019 14:43:33 01/29/20 14 Colonoscopy completed Dexter Bay MD [address] [address], [place], [address], [facility] 12/23/2019 14:43:52 splenectomy completed Dexter Bay MD [address] [facility] [address], [place], [address], [facility] 12/23/2019 06:49:28 Knee Surgery completed Dexter Bay MD [address] [facility] [address], [place], [place], [address], [facility] 12/23/2019 14:42:55 Hernia Repair [facility] 14:03:53 Imaging Results Imaging Date Name Status LastModified by Organiz ation Details LastModified Time 12/18/2020 XR, thoracic spine, 3 view completed [facility] (Outpt Imaging) [address] [place] [address], [address], 01/31/2021 16:39:05 01/10/2021 CT, chest, w/o contrast completed [facility] (Outpt Imaging) [address] [place], [address], 01/31/2021 16:39:05 09/02/2022 XR, shoulder, 2 or more view completed [facility] (Outpt Imaging) [address] [place] [address], [address], 09/20/2022 22:28:29 Procedure Notes None recorded. Medical [...] Updated DateTime 1 170.18 cm 26.2 kg/m2 03438.9 3 g 66 /min 98 % 98 % 98.42 [degF] 120 mm[Hg] 72 mm[Hg] [facility] 1 15:30:26 Date Recorded Body height Body mass index (BMI) Body weight Heart rate Oxygen saturation Oxygen saturation in Arterial blood by Pulse oximetry Body temperature Systolic blood pressure Diastolic blood pressure Provider Name and Address Organization Details Last Updated DateTime 1 170.18 cm 26.2 kg/m2 79415.9 3 g 65 /min 99 % 99 % 98.42 [degF] 123 mm[Hg] 70 mm[Hg] [facility] 16:15:50 Date Recorded Body height Body mass index (BMI) Body weight Heart rate Oxygen saturation Oxygen saturation in Arterial blood by Pulse oximetry Body temperature Systolic blood pressure Diastolic blood pressure Provider Name and Address Organization Details Last Updated DateTime 2 170.18 cm 26.2 kg/m2 71575.3 3 g 103 /min 96 % 96 % 97.7 [degF] 117 mm[Hg] 73 mm[Hg] Jackie Cooper [facility] 2 14:14:40 Date Recorded Heart rate Provider Name an d Address Organization Details Last Updated DateTime 06/12/2021 88 /min Dexter Cho i, MD [address], [address], [facility] 06/21/2021 06:56:35 Date Recorded Body height Body mass index (BMI) Body weight Heart rate Oxygen saturation Oxygen saturation in Arterial blood by Pulse oximetry Body temperature Systolic blood pressure Diastolic blood pressure Provider Name and Address Organization Details Last Updated DateTime 3 170.18 cm 26.5 kg/m2 59600.1 1 g 70 /min 96 % 96 % 98 [degF] 138 mm[Hg] 89 mm[Hg] Jackie George [facility] 3 15:17:42 Date Recorded Body height Body mass index (BMI) Body weight Heart rate Oxygen saturation Oxygen saturation in Arterial blood by Pulse oximetry Body temperature Systolic blood pressure Diastolic blood pressure Provider Name and Address Organization Details Last Updated DateTime 3 170.18 cm 26.3 kg/m2 32226.5 2 g 71 /min 97 % 97 % 98.5 [degF] 143 mm[Hg] 88 mm[Hg] Radha Guerra MA [facility] 3 15:32:29 Social History Question Answer Notes LastModified by Organizat ion Details LastModified Time Tobacco Smoking Status Never Smoker SUBHASH Polo, [facility] 08/31/2019 13:12:31 Do You Have [...] Have You Had Close Contact With A Laboratory-bryan hale COVID-19 While That Case Was Ill? No [...] not available 06/12/2021 What Is Your Occupation? [employer]ology [employer] Information not available 06/12/2021 Live [...] 12/23/2019 Have You Recently Traveled To A [place] [address] High Risk Area Or Gathering In The [...] Not available 12/22 14:32:37 Brother Heart disease anya Not available 2019 14:06:59 Daughter Well adult [...] mcg/0.3 mL dose 1 completed SUBHASH Monten[place]ro [facility] 08/26/2022 15:12:05 COVID-19, mRNA, LNP-S, PF, 30 mcg/0.3 mL dose 1 completed SUBHASH [place], [facility] 08/26/2022 15:12:05 COVID-19, mRNA, LNP-S, PF, 30 mcg/0.3 mL dose 2 completed SUBHASH [place] [facility] 06/12/2021 14:11:45 Tdap 0 completed SUBHASH Polo [facility] 12/23/2019 16:09:45 pneumococcal polysaccharide PPV23 0 completed SUBHASH Polo, [facility] 12/23/2019 16:09:46 Influenza, split virus, quadrivalent, PF 0 completed Fermin Powers PA-C [address], [address], [facility] 01/24/2020 16:21:39 Influenza, split virus, quadrivalent, PF 2 completed SUBHASH Mont[place] [facility] 06/12/2021 16:04:25 Past Encounters Encounter ID Performer Location Encounter Start Date Encounter Closed Date Diagnosis/Indication Diagnosis SNOMED-CT Code Diagnosis ICD10 Code Diagnosis Note [id number] Dexter Bay MD Main Office [address] [facility] [address] [place] [address] 08/31/2019 11:56:03 08/31/2019 14:09:18 Tinea pedis 1519168 B35.3 Most likely fungal less likely eczema. If not response to antifungal would try a medium potency topical steroid. Advised to call with any problems or changes. [id number] Dexter Bay MD Main Office [address] [facility] [address] [place] [address] 12/23/2019 13:56:53 12/23/2019 15:32:56 Adult health examination 127471027 Z00.00 Immunizati ons partially updated. Flu advised in the Fall, Shingrix advised via local pharmacy. Will screen based on risk factors. Regular dental and ophtho care advised as well as seat belt and suncreen use. Distracted driving discussed. Advance directives in place. Administra tion of viral vaccine 48564187 Z23 Varicella vaccination 68 018925 Z23 Hepatitis C screening 41 8292008 Z11.59 Body mass index 25-29 - overweight 601932085 E66.3 Z68.25 Hypercholesterolemia 136 08721 E78.2 Has history, will reassess and discuss mgmt based on CVD risk score. History of calculus of kidney 426648432 Z87.442 History of splenectomy 787515665 Z90.81 Should get menigitis vaccine as well. Will defer for now. Screening for malignant neoplasm of prostate 824590244 Z12.5 Chest pain 37880706 R07. 9 Based on age and dyslipidem ia, ischemic cardiac evaluation is indicated. Easy bruising 439619805 R58 Obstructiv e sleep apnea syndrome 63104112 G47.33 Pt reports intoleranc e to treatment in the past. Will monitor. [id number] Fermin Powers PA-C Main Office [address] [facility] [address] [place] [address] 01/24/2020 15:44:23 01/25/2020 10:51:34 Needs influenza immunization 758243101 Z23 Abdominal bloating 94307 9008 R14.0 pt had large amount of cruciferou s veggies over the weekend - gas/bloati ng likely caused his mild splenic flexure syndrome / rib pain (s/p splenectom y, likely more sensitive area) - no constipati on so no need for colace plus eats plenty of fiber -- rec probiotic qd c beano prn [id number] Dexter Bay MD Main Office [address] [place] [address] [place] [address] 02/15/2020 14:46:14 02/15/2020 16:06:22 Hepatitis C antibody detected 662768499 Z86.19 Will check viral load. If negative presume false positive ab test. Hyperlipidemia 11981088 E78.5 CVD risk score 11%. Pt advised of this and that statin might mitigate risk. Declined for now. Wants to work on TLC. Impaired f asting glycemia 918322058 R73.01 Will monitor. [id number] Dexter Bay MD Main Office [address] [place] [address] 10/17/2020 12:41:14 10/17/2020 13:23:15 Anterior chest wall pain 078003882 R07.89 Screen for inflammato ry process, nutritiona l deficiency . May need CT scan or possibly MRI depending on results and symptom progressio n. Albuminuria 192143533 R8 0.9 Will reassess and refer for urologic imaging if abnormal. [id number] Dexter Bay MD Main Office [address] [place] [address] [place] [address] 12/18/2020 14:45:26 12/18/2020 16:06:11 Chest wall pain 154602260 R07.89 Etiology remains unclear. Possible radicular pain so will image thoracic spine however xray was normal. Will pursue CT scan of chest to look for chest wall/pulmo nary cause. Non-healin g pigmented skin lesion 102423457 L98.8 Looks like a chronicall y inflammed ingrown hair, but duration of presence and pt concerns warrants further assessment . Pigmented nature mildly concerning . [id number] Fermin Powers PA-C Main Office [address] [place] [address] [place] [address] 01/31/2021 15:48:47 02/02/2021 11:15:28 Chest wall pain 046628524 R07.89 see below - pt has had multiple radiologic studies lately - ct chest found debris filled stomach and constipati on - pt defers further testing at this time - see below wonder if pt has referred pain from upper abdomen into thoracic region - see below Abdominal pain 55511228 R10.9 see above - ? has splenic flexure syndrome as is s/p splenectom y age 17 (adhesions ) - see below Chronic constipation 236 153718 K59.09 rec. laxaclear (generic for miralax at [facility]) 1/2 - 1 scoop in 8 oz. of any fluid 1-2x/daily . rec. eat less bananas and drink more water. rec. eat more grapes, oranges, and pears. in future, if no bm x 3 days, then use 1-2 tabs of senna or dulcolax as needed. [id number] Dexter Bay MD Main Office [address] [facility] [address] [place] [address] 06/12/2021 14:00:48 06/12/2021 15:10:06 Adult health examination 500759713 Z00.00 Immunizati ons partially updated. Shingrix, and menactra advised via local pharmacy. Will screen based on risk factors. Regular dental and ophtho care advised as well as seat belt and suncreen use. Distracted driving discussed. Advance directives in place. Body mass index 25-29 - overweight 365920892 E66.3 Z68.26 Impaired f asting glycemia 143769708 R73.01 Will monitor. Hypercholesterolemia 136 63717 E78.2 Has history, will reassess and discuss mgmt based on CVD risk score. History of splenectomy 228802726 Z90.81 Should get meningitis vaccine as well. Advised to pursue at local pharmacy. Pneumococc al vaccinatio n status utd. Varicella vaccination 68 535114 Z23 Gallstone 517581443 K80. 20 Asymptomat ic. Counseled on concerning signs/symp tomss including those which warrant urgent evaluation . If noted or labs become abnormal will refer to surgery. Obstructiv e sleep apnea syndrome 28204877 G47.33 Pt reports intoleranc e to treatment in the past. Will monitor. Screening for malignant neoplasm of colon 579448446 Z12.11 Nocturia 778296544 R35.1 Needs infl uenza immunization 611660611 Z23 Hepatitis C antibody detected 416405562 Z86.19 Undetectab le viral load, consistent with cleared infection. [id number] Dexter Bay MD Main Office [address] [facility] [address] [place] [address] 08/26/2022 15:02:03 08/26/2022 16:18:37 Adult health examination 741854134 Z00.00 Immunizati ons partially utd. Shingrix, menactra and PCV20 advised via local pharmacy. Will screen based on risk factors. Regular dental and ophtho care advised as well as seat belt and suncreen use. Distracted driving discussed. Advance directives in place. Administra tion of pneumococcal vaccine 42366389 Z23 Varicella vaccination 68 668158 Z23 Body mass index 25-29 - overweight 377697921 E66.3 Z68.26 Nocturia 595854566 R35.1 History of splenectomy 746939312 Z90.81 Needs PCV20, meningococ [place] utd. Tinea pedis 7888362 B35. 3 Most likely fungal less likely eczema. If not response to antifungal would try a medium potency topical steroid. Advised to call with any problems or changes. Albuminuria 879817105 R8 0.9 Will reassess and refer for urologic imaging if abnormal. Hypercholesterolemia 136 83850 E78.2 Based on current CVD risk score statin therapy advised. Pt would like to reassess/d efer for now. Understand s/accepts potential consequenc es. Impaired f asting glycemia 039456143 R73.01 Will monitor. Disorder of shoulder 118 808415 M75.92 Start with imaging and refer to ortho/PMR accordingl y. [id number] Triston Robert MD Main Office [address] [facility] [address] [place] [address] 10/22/2022 14:53:40 10/22/2022 16:08:53 Contact dermatitis caused by urushiol from [facility] oswald 322179872 L25.5 Not extensive and already present for more than a week so will treat with a potent steroid cream. Pain of ri ght knee joint 8366825018 74865 M25.561 He will take an NSAID for 2 weeks and will call for a referral to ortho if it persists. Health Concerns Section Related Observation LastModified by Organization Detai ls LastModified Time None Recorded Concern Status LastModified by Organization Details LastModified Time None Recorded Advance Directives Directive Y: Payers Encounter Date Sequence Insurance Name Policy Number Policy Vigil Covered Member ID Vigil Member ID Guarantor Name 12/18/2020 1 [facility] Everett Beltran [id number] Everett Beltran 01/31/2021 1 [facility] Everett Beltran [id number] Everett Beltran 06/12/2021 1 [facility] Everett Beltran [id number] Everett Beltran 08/26/2022 1 [facility] Everett Beltran [id number] Everett Beltran 10/22/2022 1 [facility] Everett Beltran [id number] Everett Beltran Notes Date Note Type [...] forwarded here. Pt unable to identify the house steward/stewardess either. Patient presents with > 6 months of bilateral lower chest wall pain. States that it is present on awakening in the AM. No correlation to exertion. Denies dyspnea or worsening with deep breathing. Chest xray and abdominal u/s were normal. Labs unremarkable as well. Dexter Bay MD [address] [facility] [address], [place], [address], [facility] 12/19/2020 07:16:19 01/31/2021 text/html here for f/u [...] h/o psychiatric meds Fermin Powers PA-C [address] [place] [address] [address], [place], [address], [facility] 01/31/2021 17:30:07 06/12/2021 text/html Generic HPI TemplateReported bypatient.Notes:Here for physical, feels well. Seeing dentist and ophtho regularly. Dexter Bay MD [address], [address], [facility] 06/21/2021 07:02:20 08/26/2022 text/html Generic HPI TemplateReported bypatient.Notes:Here for physical, feels well. Seeing dentist and ophtho regularly. Dexter Bay MD [address] [address], [place], [address], [facility] 09/13/2022 07:57:40 10/22/2022 text/html He was working o [employer] more than a week ago and developed [...] most when flexing past 90 degrees. Triston Roebrt MD [address], [address], [facility] 10/22/2022 18:05:14
--- OUTSIDE RECORDS SUMMARY | 2024-07-16 15:51 | XMS_ITS | Data Portability ---
Author Organization [employer] [place] [facility] [employer] Address [address] [place] [address] Care Team Providers Care Cnc Manufacturing Engineer Name Role Phone HIM CCA OTHER ARIADNA CARUSO Primary Care Provider Assessment Encounter Date Assessment Date Assessment LastModified by Organization Details LastModified Time 01/17/2024 01/17/2024 I have reviewed and agree with the assessment and plan as documented by the leasing representative. I provided real time medical direction for this encounter and was immediately available to provide additional phone based assistance as needed. History as noted by leasing representative. Pt reports no significant PMH although he [...] including: lipid panel, echocardiogram, 14 day patch media monitor, and ETT to assess his recent [...] BMP, serum or plasma [email or web address], [address], 13:04:47 Referral None recorded. Procedures None recorded. Surgeries None recorded. Imaging electrocard iogram [email or web address], [address], 14:31:29 Medication Orders None recorded. Patient TargetsNo targets recorded. Patient InstructionsNo instructions recorded. Reason for Referral None Reported. Results Created Date Observation Date Name Description Value Unit Range Abnormal Flag Note LastModifiedBy Organization Detail LastModifiedTime 01/17/20 24 01/17/2024 elect claribelmarvin meenagr am No observ ation record ed. [email or web address] [address], [address], 01/17/2024 13:09:44 Result Notes None recorded. Procedures Surgical History None recorded. Imaging Results Imaging Date Name Status LastModified by Organization Details LastModified Time 01/17/2024 electrocardiogram completed [email or web address] [address] [place], [address], 01/17/2024 13:09:44 Procedure Notes None recorded. Medical [...] Address Organization Details Last Updated DateTime 4 28333.6 8 g 98.1 [degF] 88 /min 16 [...] SNOMED-CT Code Diagnosis ICD10 Code Diagnosis Note [id number] Phill You MD [facility] [address] [address] 01/17/2024 12:51:26 01/17/2024 18:23:46 Atypical chest pain 373298101 R07.89 Health Concerns Section Related Observation LastModified by Organization Detai ls LastModified Time None Recorded Concern Status LastModified by Organization Details LastModified Time None Recorded Advance Directives Directive None Recorded Payers Encounter Date Sequence Insurance Name Policy Number Policy Vigil Covered Member ID Vigil Member ID Guarantor Name 01/17/2024 1 [facility] - DOS ON OR AFTER 2022 - MEDICARE [place]ANTAGE [place]MEDICARE REPLACEMENT/ADV ANTAGE - PPO) Everett Beltran [id number] Everett Beltran Notes Date Note Type Note Provider Name and Address Organization Details Recorded Time 01/17/2024 text/html This was a supervised home visit with leasing representative Corey Roman. CRC Nurse Triage Notes (Stephanie [...] emergency treatment if needed. Kera Peralta RN Steward/Stewardess [employer]quet Organization Information for Corey Roman Legal Name: [facility] Address: [address] [place] [address], Labor Gang Supervisor: Vaughn Zhong MD CLIA No.: [id number] Steward/Stewardess [employer]quet POC Test Results from Corey Roman EKG [...] .................... .................... .................... .................... .................... .................... . Steward/Stewardess Banquet Note From Corey Roman: Pt reporting mild WILEY in the morning, CP when lifting weights only and feeling like his heart is beating ? h regis? (not fast or irregular) at night for [...] . Disposition: Fulfilled Phill You MD [address] [facility],[address], [place], [address], SUBHASH - [facility]odioSONNY TRUJILLO 01/17/2024 13:21:09
== END ==
LOC: HO.HMCC 14:08
PROVIDERS: PCP Internal Medicine; Visit Provider Internal Medicine
DX: M54.9 Dorsalgia, unspecified (principal); G89.29 Other chronic pain; I20.89 Other forms of angina pectoris; R00.2 Palpitations

== ENCOUNTER → 2024-07-16 15:07 | Outpatient (BNV) | payer MEDICARE, SELFPAY | PROVIDERS: PCP Internal Medicine; Visit Provider Radiology Diagnostic Radiology | DX: M54.50 Low back pain, unspecified (principal); M54.6 Pain in thoracic spine | CPT/HCPCS: 72070; 72100 ==

== ENCOUNTER 2024-08-14 18:48 | Emergency (ER) | payer MEDICARE, SELFPAY ==
--- NOTE | ~2024-08-14 | CT_ITS ---
CLINICAL HISTORY: Mid abdomen right lower quadrant pain? Appy CT abdomen and pelvis with contrast Comparison: None Findings: Bibasilar atelectatic/dependent changes. Prior splenectomy. A 5 mm nonobstructing stone is noted within the right kidney lower pole. A 1.3 cm exophytic cyst is within the left kidney midpole. No hydronephrosis. Remainder of the solid organs and the gallbladder is unremarkable. Multiple small bowel loop moderate wall thickening and mucosal enhancement which are nondilated. Liquid stool is noted within the ascending and transverse colon. Pelvic contents unremarkable. Normal appendix. No acute fracture. IMPRESSION: Multiple prominent nondilated small bowel loops with moderate wall thickening and mucosal enhancement concerning for enteritis. Liquid stool within the ascending and transverse colon. Normal retrocecal appendix. This document has been electronically signed by: Lauren Nicole MD on 08/14/2024 23:09:31
--- NOTE | 2024-08-14 19:23 | ED.GENADULT ---
HPI - General Adult General Chief complaint: Abdominal Pain Stated complaint: severe abd pain Time Seen by Provider: 08/14/24 21:24 Source: patient Mode of arrival: ambulatory Limitations: no limitations History of Present Illness ED Provider: HPI narrative: Patient no significant past GI problems apparently had discomfort with nausea and mid abdomen since afternoon today patient has had fish earlier no fever no chills no diarrhea feel cramping all over the abdomen nauseated on arrival no upper respiratory symptoms Related Data Home Medications ?Medication ?Instructions ?Recorded ?Confirmed cholecalciferol (vitamin D3) 50 50 mcg PO DAILY 11/03/23 07/16/24 mcg (2,000 unit) capsule fish oil-dha-epa PO 03/02/24 07/16/24 Previous Rx's ?Medication ?Instructions ?Recorded diclofenac sodium 1 % topical gel 2 g topical QID #100 grams 11/03/23 (Aleve (diclofenac)) sildenafil 50 mg tablet 50 mg PO DAILY PRN sexual activity 11/03/23 #8 tabs ondansetron 4 mg disintegrating 4 mg PO Q6-8H PRN nausea and 08/14/24 tablet vomiting #7 tabs Allergies Allergy/AdvReac Type Severity Reaction Status Date / Time No Known Allergies Allergy Verified 08/14/24 19:26 Review of Systems Review of Systems: Yes all other systems are reviewed and are negative PMFSH Past Medical History Surgical History No pertinent past surgical history Family History Family History Brother Substance use disorder Social History Social History Housing: House Patient Tobacco Use Status: Never used Tobacco Smoked in Last 30 Days: No e-Cigarette/Vaping Use: Never Used Use of substances other than those prescribed or required for medical reasons: No Advance Directives: No Advance Directives Information Provided: No Do you have a plan to hurt others: No Plan service: No Current occupational status: employed Cognitive needs: No Hearing needs: No Vision needs: Yes Physical Exam ED Vital Signs: Vital Signs - 24 hr 08/14/24 19:24 08/14/24 20:47 08/14/24 21:53 Temperature 98.5 F 97.6 F 97.9 F Pulse Rate 73 77 62 Respiratory Rate 20 16 16 Blood Pressure 132/82 128/80 118/74 Pulse Oximetry 97 95 95 Oxygen Delivery Method Room Air Room Air Room Air 08/14/24 22:49 Temperature Pulse Rate 65 Respiratory Rate 16 Blood Pressure 134/68 Pulse Oximetry 98 Oxygen Delivery Method Room Air BMI result Body Mass Index 26.2 Appearance: Alert. Oriented X3. No acute distress. Eyes: No pallor or icterus ENT: Pharynx normal. Oral Mucosa moist Neck: Normal inspection. Neck supple. CVS: Normal heart rate and rhythm. Pulses normal. Respiratory: No respiratory distress. Equal air entry bilateral, no wheezing/rales/rhonchi Abdomen: Soft and diffuse tenderness mid abdomen Bowel sounds are hyper, no mass palpable, no CVA tenderness Skin: Skin warm and dry. Normal skin color. Normal skin turgor. Extremities: No lower extremity edema. No calf tenderness Neuro: Oriented X 3. No motor deficit. Course Course Course Narrative: This is a rapid medical exam performed by Acacia Putnam NP: Additional HPI, ROS, PE not included below will be deferred to primary provider. Patient is a 69-year-old male with history of HTN, HLD, HENRIK presenting with severe upper abdominal pain/cramping which began this afternoon. Associated headache. Normal BM this am. Plan: EKG, labs Medications Administered Discontinued Medications Generic Name Dose Route Start Last Admin Trade Name Freq PRN Reason Stop Dose Admin Sodium Chloride 1,000 mls @ 999 mls/hr 08/14/24 21:45 08/14/24 22:49 Ns IV 08/14/24 22:45 Infused .Q1H1M ONE Infusion Iohexol 85 ml 08/14/24 22:02 08/14/24 22:03 Iohexol 350 Mg/Ml 100 Ml Infus..Btl IV 08/14/24 22:03 85 ml ONCE ONE Administration Medical Decision Making Medical Decision Making [facility] Narrative: Patient has diffuse abdominal pain with nausea CT scan was negative except for liquids stool likely patient has a gastroenteritis patient is feeling better after IV fluids Differential Diagnosis Differential Diagnoses: The differential diagnosis associated with the presentation includes Pancreatitis/appendicitis/gastroenteritis Lab Data [facility] Lab Attestation statement: I reviewed the patient's lab results. 08/14/24 20:04 04/12/25 20:04 Labs: Lab Results 08/14/24 08/14/24 Range/Units 20:03 20:04 WBC 15.2 H (4.8-10.8) X10*3/uL RBC 5.58 (4.60-5.80) X10*6/uL Hgb 16.8 (14.0-18.0) g/dl Hct 48.5 (42.0-52.0) % MCV 86.9 (80.0-98.0) fL MCH 30.1 (27.0-33.0) pg MCHC 34.6 (31.0-36.0) g/dl RDW 15.0 (11.0-16.0) % Plt Count 259 (160-400) X10*3/uL MPV 10.7 (9.4-12.4) fL Immature Gran % (Auto) 0.4 (0.0-0.4) % Neut % (Auto) 78.1 H (45-73) % Lymph % (Auto) 16.1 L (20-40) % Clarke % (Auto) 4.8 (2-11) % Eos % (Auto) 0.2 (0-4) % Baso % (Auto) 0.4 (0-2) % Lymph # (Auto) 2.5 (1.2-4.9) X10*3/uL Clarke # (Auto) 0.7 (0.1-1.2) X10*3/uL Eos # (Auto) 0.0 (0.0-0.4) X10*3/uL Baso # (Auto) 0.1 (0.0-0.2) X10*3/uL Abs Immat Gran (auto) 0.06 H (0.00-0.03) X10*3/uL Absolute Neuts (auto) 11.9 H (2.0-8.3) x10*3/uL Absolute Nucleated RBC 0.000 (0.0-0.012) X10*3/uL Nucleated RBC % (auto) 0.0 (0.0-0.2) /100WBC Sodium 138 (135-145) mmol/L Potassium 4.4 (3.3-5.1) mmol/L Chloride 106 (96-108) mmol/L Carbon Dioxide 25 (22-29) mmol/L Anion Gap 11 L (12-20) BUN 26 H (9-16) mg/dL Creatinine 0.92 (0.5-1.4) mg/dL Estim Creat Clear Calc 71.8 Estimated GFR > 60 Random Glucose 110 (60-115) mg/dL Calcium 9.4 (8.4-10.2) mg/dL Total Bilirubin 0.6 (0.0-1.0) mg/dL AST 41 H (5-37) U/L ALT 29 (0-40) U/L Alkaline Phosphatase 116 (39-117) U/L Troponin I High Sens < 2.7 (<3.5-35.0) ng/L Total Protein 7.6 (6.5-8.0) g/dL Albumin 4.4 (3.5-5.0) g/dL Lipase 24 (8-78) U/L Influenza Type A (PCR) NEGATIVE (Negative) Influenza Type B (PCR) NEGATIVE (Negative) RSV RNA Qual (PCR) NEGATIVE (Negative) SARS-CoV-2 RNA (RT-PCR) NEGATIVE (Negative) Independent Interpretation I performed an independent interpretation of an: CT Scan Radiology Impression Discussion of test interpretation with radiology: I have reviewed the radiologist's reading. Radiologist Impression: No acute finding Discharge Plan Discharge Clinical Impression: Gastroenteritis Patient Disposition: Home, Self-Care Instructions: Gastroenteritis (ED) Additional Instructions: Drink plenty of fluids Likely you will have diarrhea Medicine for nausea as prescribed Follow with your PCP as needed Prescriptions: New ondansetron 4 mg tablet,disintegrating 4 mg PO Q6-8H PRN (Reason: nausea and vomiting) Qty: 7 0RF No Action sildenafil 50 mg tablet 50 mg PO DAILY PRN (Reason: sexual activity) Qty: 8 0RF Rx Instructions: administer 30 minutes to 4 hours before activity diclofenac sodium [Aleve (diclofenac)] 1 % gel 2 g topical QID Qty: 100 0RF Rx Instructions: apply to single elbow, wrist or hand; for hand includes palm/fingers/back of hand cholecalciferol (vitamin D3) 50 mcg (2,000 unit) capsule 50 mcg PO DAILY fish oil-dha-epa PO Print Language: Portuguese
[2024-08-14 19:24] VITALS: BP 132/82; PULSE 73; RESP 20; TEMP 36.9; O2SAT 97; BMI 26.2
--- NOTE | 2024-08-14 19:25 | ECG_ITS ---
Test Reason : abd pain Blood Pressure : */* mmHG Vent. Rate : 75 BPM Atrial Rate : 75 BPM P-R Int : 144 ms QRS Dur : 86 ms QT Int : 368 ms P-R-T Axes : -22 -17 -14 degrees QTcB Int : 410 ms Sinus rhythm with occasional Premature ventricular complexes Otherwise normal ECG When compared with ECG of 26-Dec-2016 10:24, Premature ventricular complexes are now Present Questionable change in QRS axis T wave inversion now evident in Inferior leads T wave amplitude has increased in Anterior leads Referred By: Tamara Putnam Electronically Signed By: Jose Norton
[2024-08-14 20:09] LABS: MANUAL DIFF FLAG NO
[2024-08-14 20:11] LABS: Basophils Absolute Auto 0.1 X10*3/uL (0.0-0.2); Basophils Percent Auto 0.4 % (0-2); Eosinophils Percent Auto 0.2 % (0-4); Hematocrit 48.5 % (42.0-52.0); Hemoglobin 16.8 g/dl (14.0-18.0); Imm Gran Abs Auto 0.06 X10*3/uL (0.00-0.03); Imm Gran Pct Auto 0.4 % (0.0-0.4); Lymphocytes Absolute Auto 2.5 X10*3/uL (1.2-4.9); Lymphocytes Percent Auto 16.1 % (20-40); Mean Corpuscular HGB Conc 34.6 g/dl (31.0-36.0); Mean Corpuscular Hemoglobin 30.1 pg (27.0-33.0); Mean Corpuscular Volume 86.9 fL (80.0-98.0); Mean Platelet Volume 10.7 fL (9.4-12.4); Monocytes Absolute Auto 0.7 X10*3/uL (0.1-1.2); Monocytes Percent Auto 4.8 % (2-11); Neutrophils Absolute Auto 11.9 x10*3/uL (2.0-8.3); Neutrophils Percent Auto 78.1 % (45-73); Platelet Count 259 X10*3/uL (160-400); Red Blood Count 5.58 X10*6/uL (4.60-5.80); White Blood Count 15.2 X10*3/uL (4.8-10.8)
[2024-08-14 20:27] LABS: Alanine Aminotransferase 29 U/L (0-40); Albumin Level 4.4 g/dL (3.5-5.0); Alkaline Phosphatase 116 U/L (39-117); Anion Gap 11 (12-20); Aspartate Amino Transferase 41 U/L (5-37); Bilirubin Total 0.6 mg/dL (0.0-1.0); Blood Urea Nitrogen 26 mg/dL (9-16); Calcium 9.4 mg/dL (8.4-10.2); Carbon Dioxide 25 mmol/L (22-29); Chloride 106 mmol/L (96-108); Creatinine Clr Calc Pharmacy 71.8; Estimated Glomerular Filt Rate > 60; Glucose Random 110 mg/dL (60-115); Lipase 24 U/L (8-78); Potassium 4.4 mmol/L (3.3-5.1); Sodium 138 mmol/L (135-145); Total Protein 7.6 g/dL (6.5-8.0)
[2024-08-14 20:34] LABS: Troponin-I High Sensitivity < 2.7 ng/L (<3.5-35.0)
[2024-08-14 20:47] VITALS: BP 128/80; PULSE 77; RESP 16; TEMP 36.4; O2SAT 95
[2024-08-14 20:50] LABS: Influenza A PCR NEGATIVE (Negative); Influenza B PCR NEGATIVE (Negative); Resp Syncy Virus RNA Qual PCR NEGATIVE (Negative); SARS COV2 PCR INHOUSE NEGATIVE (Negative)
[2024-08-14 21:53] VITALS: BP 118/74; PULSE 62; RESP 16; TEMP 36.6; O2SAT 95
[2024-08-14] MEDS: 0.9 % Sodium Chloride 1,000 ML 999 ML IV (21:54)
[2024-08-14] MEDS: iohexoL 350 MG/ML 100 ML INFUS..BTL 85 ML IV (22:03)
[2024-08-14 22:49] VITALS: BP 134/68; PULSE 65; RESP 16; O2SAT 98
[2024-08-14 23:51] VITALS: BP 134/68; PULSE 65; RESP 16; TEMP 36.6; O2SAT 98
== END 2024-08-14 23:52 | disposition home or self-care (01) ==
PROVIDERS: Registered Nurse Emergency; Emergency Provider Internal Medicine; PCP Internal Medicine
DX: K52.9 Noninfective gastroenteritis and colitis, unspecified (principal); R10.2 Pelvic and perineal pain; R94.31 Abnormal electrocardiogram [ECG] [EKG]; R11.0 Nausea; Z03.818 Encounter for observation for suspected exposure to other biological agents ruled out; Z79.899 Other long term (current) drug therapy
CPT/HCPCS: 0241U; 74177; 80053; 83690; 84484; 85025; 93005; 96360; 99284; Q9967

== ENCOUNTER → 2024-08-14 19:25 | Outpatient (BNV) | payer MEDICARE, SELFPAY | PROVIDERS: Emergency Provider Internal Medicine; PCP Internal Medicine; Visit Provider Internal Medicine Cardiovascular Disease | DX: I49.3 Ventricular premature depolarization (principal) | CPT/HCPCS: 93010 ==

== ENCOUNTER → 2024-08-14 21:46 | Outpatient (BNV) | payer MEDICARE, SELFPAY | PROVIDERS: Emergency Provider Internal Medicine; PCP Internal Medicine; Visit Provider Student in an Organized Health Care Education/Training Program | DX: K63.89 Other specified diseases of intestine (principal); R19.7 Diarrhea, unspecified | CPT/HCPCS: 74177 ==

== ENCOUNTER → 2024-08-27 09:43 | Outpatient (REF) | payer MEDICARE, SELFPAY ==
--- NOTE | ~2024-08-27 | NM_ITS ---
EXERCISE MYOCARDIAL PERFUSION STUDY INDICATION: Angina to evaluate for myocardial ischemia TECHNIQUE: The patient was brought in for an exercise perfusion study on 08/27/2024. Patient performed exercise as per Timi protocol and was injected 25 mCi of sestamibi once target heart rate was achieved. Images were obtained using the SPECT gamma camera interlaced with the gating device. Images were obtained in supine position. Resting perfusion study was performed on 08/31/2024. Patient was administered 25 mCi of sestamibi intravenously at rest. Images were then obtained in supine position. Images obtained without without CT attenuation. Total DLP 75 mGy-cm. Images were processed with the software and compared side to side in short axis, horizontal long axis and vertical long axis views. FINDINGS: Raw images were reviewed The stress perfusion study showed nonattenuated images show mildly reduced uptake in the basal inferior wall of the LV myocardium. Remainder of the LV myocardium is normally perfused. Attenuation corrected images show normal uptake of radiotracer in all segments of the LV myocardium. The gated study shows normal LV systolic function with calculated LVEF of 59%. LV cavity is normal in size. The gated study shows normal systolic wall thickening and contraction of segments. Resting study shows no change in perfusion pattern compared to stress perfusion study. Gating at rest reveals normal systolic wall motion with ejection fraction at greater than 55%. The findings are consistent with no reversible defect. Normal myocardial perfusion. NM/NM cardiolite stress test IMPRESSION: 1. Myocardial perfusion imaging study shows normal myocardial perfusion. 2. Gated LVEF is 59%. 3. Transient ischemic dilatation not present. EKG revealed negative for ischemia. Electronically signed by: Gus Bhatt MD 08/31/2024 02:20 PM EDT
--- NOTE | 2024-08-27 09:45 | CA_ITS ---
Acquisition Time: 2024-08-27 10:27:48 Total Exercise Time: 00:08:05 Test Indications: CP Medications: SEE H&P Protocol: GÓMEZ Max HR: 136 BPM 89% of Pred: 152 BPM Max BP: 144/60 mmHG Max Work Load: 10.1 METS Exercise stress test with exercise 8 mins 5 secs of Gómez Protocol, achieving 88% MPHR, with reports of mild SOB, no chest pain, with isolated PVCs, with normotensive response to exercise. Without EKG changes meeting criteria for ischemia, baseline nonspecific ST. In recovery, pt's breathing returned to baseline. Nuclear images pending. Test reviewed with Dr. Wilkes. Referred By: Victorina Chris Electronically Signed By: Pablo Houston
--- OUTSIDE RECORDS SUMMARY | 2024-08-27 09:58 | XMS_ITS | Data Portability ---
Author Organization [facility], Main Office Address [address] [facility] [address] [place] [phone] Care Team Providers Care Sofa Back Upholsterer Name Role Phone DEXTER BAY Primary Care Provider NIKOLAS CLOUD Manager Nuclear Assessment No assessment recorded. Plan of Treatment Reminders Order Date Submit Date Provider Last Modified By Organization Details Last Modified Time Details Appointments None recorded. Lab urinalysis, complete 2022 023 [facility], [address], [address], [place], [address], 3 15:39:14 CMP, serum or plasma 2022 023 [facility], [address], [address], [place], [address], 3 10:47:03 lipid panel, serum 2022 023 [facility], [address], [address], [facility] [place], [address], 3 10:47:04 HbA1c (hemoglobin A1c), blood 2022 023 [facility], [address], [address], [place], [address], 3 13:03:17 PSA, serum or plasma - Screening 2022 023 [facility], [address], [address], [place], [address], 3 10:57:32 lipid panel, serum 2021 022 [facility], [address], [address], [place], [place], [address], 2 12:28:49 HbA1c (hemoglobin A1c), blood 2021 022 [facility], [address], [address], [place], [address], 2 10:27:51 CMP, serum or plasma 2021 022 [facility], [address], [address], [place], [address], 2 12:28:47 PSA, serum or plasma - Screening 2021 022 [facility], [address], [address], [place], [address], 2 12:42:37 Referral nutritionis t/dietitian referral 2022 023 [email or web address] Not available 3 16:18:37 nutritionis t/dietitian referral 2021 022 [email or web address] Not available 2 15:45:[address] referral - for eval of pt with non healing groin lesion 2020 021 katharina Tarango MD, [address] [facility] [place], [address], 1 09:53:19 Procedures None recorded. Surgeries None recorded. Imaging XR, shoulder, 2 or more view - for eval of left shoulder protuberanc e near AC joint 2022 023 [facility], [address] [place], [address], 3 08:29:33 XR, thoracic spine, 4 or more view - for eval of thoracic radicular pain, rule out lower thoracic disc disease. 2020 021 [email or web address] Not available 10:10:10 CT, chest, w/o contrast - rule out pulmonary/c hest wall etiology for persistent lower thoracic pain. 2020 021 [facility] [address], [place], [address], 1 12:44:48 Medication Orders clobetasol 0.05 % topical cream 2022 023 [id number], [address], [place], [id number], 3 16:01:38 meloxicam 15 mg tablet 2022 023 [facility] #[id number], [address], [place], [id number], 3 16:01:36 clotrimazol e-betametha sone 1 %-0.05 % topical cream 2022 023 [facility] #[id number], [address], [place], [id number], 3 16:15:08 Patient TargetsNo targets recorded. Patient Instructions Encounter Date Encounter Id Patient Instructions Last Modified By Organization Details Last Modified Time 01/31/2021 [id number] rec. laxaclear (generic for miralax at [employer]) 1/2 - 1 scoop in 8 oz. [...] improvement pmadden Not available 01/31/2021 17:08:47 06/12/2021 [id number] prediabetes: care instructions awychowski Not available 06/12/2021 14:58:30 sleep apnea: care instructions awychowski Not available 06/12/2021 14:58:30 Prostate Cancer Screening awychowski Not available 06/12/2021 14:58:30 When You Want to Lose Weight: Care Instructions awychowski Not available 06/12/2021 14:58:30 Nutrition Referral and Weight Management Follow-up Information awychowski Not available 06/12/2021 14:58:30 08/26/2022 [id number] athlete's foot: care instructions awychowski Not available 08/26/2022 16:10:17 prediabetes: care instructions awychowski Not available 08/26/2022 16:10:17 Prostate Cancer Screening awychowski Not available 08/26/2022 16:10:17 When You Want to Lose Weight: Care Instructions awychowski Not available 08/26/2022 16:10:17 Nutrition Referral and Weight Management Follow-up Information awychowski Not available 08/26/2022 16:10:17 Reason for Referral Animal Health Technician Referral for N on-healing pigmented skin lesion for eval of pt with non healing groin lesion Referring Physician: Family Yoana Medicine, Encounter Date: 12/18/2020 Vessel Welder/dietitian Refer ral for Body mass index 25-29 - overweight Referring Physician: Family Yoana Medicine, Encounter Date: 06/12/2021 Vessel Welder/dietitian Refer ral for Body mass index 25-29 [...] Go To The Location Of Their Choice, [id number] 09/02/2022 10:47:04 09/03/19 23 09/02/2022 PSA SCREE [...] Go To The Location Of Their Choice, [id number] 09/02/2022 10:57:32 09/03/19 23 09/02/2022 HEMOG LOBIN [...] Go To The Location Of Their Choice, [id number] 09/02/2022 13:03:17 09/03/19 23 09/02/2022 LAB ONLY [...] Go To The Location Of Their Choice, [id number] 09/02/2022 15:39:14 12/19/1912/18/2020 XR, thora cic spine [...] pm Patien t Class: Outpat ient pmadden [facility] (Outpt Imaging) [address], [place], [address], 01/31/2021 16:39:05 01/11/20 21 01/10/2021 CT, chest [...] splene ctomy. 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 Stomac h is debris -fille d likely a recent meal, colon is stool- filled sugges thereseg consti pation . BONES: Mild degene rative change s of the visual ized spine. No acute abnorm ality. IMPRES ASHLEY: Unrema rkable . I have person ally review ed the images and I agree with this report . WSN: [id number] Orderranjeet osborne Physic padmini: Dexter Swartz Dictat ed By: Ashley Oswald Tila Dictat ed Date/T al: 3:20 pm Review ed By: Mikaela Jenkins MD Signed By: Mikaela Jenkins MD Signed Date/T al: 3:25 pm Transc ribed By: OLIVERIO Transc ribed Date/T al: 2:44 pm Patien t Class: Outpat ient pmadden [facility] (Outpt Imaging) [address] [place], [address], 01/31/2021 16:39:05 09/03/19 23 09/02/2022 XR, shoul [...] involv ing the left should er. WSN: [id number] Orderi dylon Physic padmini: Dexter Swartz Dictat ed By: Hailey marie MD, Trenton De La Paz Dictat ed Date/T al: 8:26 am Review ed By: Hailey marie MD, Trenton De La Paz Signed By: Hailey marie MD, [place]on De La Paz Signed Date/T al: 8:26 am Transc ribed By: OLIVERIO Transc ribed Date/T al: 8:24 am Patien t Class: [facility]pat [facility] [address] , [place], [address], 09/20/2022 22:28:29 Result Notes None recorded. Problems Name Problem SNOMED Code Status Onset Date Resolution Date Notes Provider Name and Address Organization Details Recorded Time Hypercholester olemia 70456273 Active 2018 Dexter Bay MD [address] [address], [place], [address], [facility] 9 12:52:54 Benign prostatic hyperplasia 654250816 Active 2019 Dexter Bay MD [address] [address], [place], [address], [facility] 0 06:48:15 History of calculus of kidney 880207678 Active 2019 Dexter Bay MD [address] [address], [place], [address], [facility] 0 06:48:26 Body mass index 25-29 - overweight 496569964 Active 2019 Dexter Bay MD [address] [address], [place], [address], [facility] 0 15:05:10 Impaired fasting glycemia 278499431 Active 2019 Dexter Bay MD [address] [address], [place], [address], [facility] 0 20:27:30 Hepatitis C antibody detected 028610043 Active 2019 Dexter Bay MD [address] [address], [place], [address], [facility] 0 20:35:12 Albuminuria 537374226 Active 2020 Dexter Bay MD [address] [address], [place], [address], [facility] 1 12:01:29 Gallstone 430150822 Active 2020 Dexter Bay MD [address] [facility] [address], [place], [address], [facility] 1 13:29:38 Chest wall pain 896494607 Active 2020 Dexter Bay MD [address] [address], [facility] [place], [address], [facility] 1 07:11:55 History of splenectomy 749188525 Active 2020 Dexter Bay MD [address] [address], [facility] [place], [address], [facility] 1 15:49:20 Obstructive sleep apnea syndrome 18491451 Active 2021 Dexter Bay MD [address] [address], [facility] [place], [address], [facility] 2 14:57:39 Prediabetes 841455674 Active 2022 Dexter Bay MD [address] [address], [facility] [place], [address], [facility] 3 07:25:19 Problem Notes None recorded. Procedures Surgical History Date Name Laterality Status Provider Name and Address Organization Details Recorded Time 02/08/20 20 cardiovascular stress testing completed Dexter Bay MD [address] [address], [place], [address], [facility] 02/11/2020 14:08:48 02/11/20 15 Shoulder joint surgery completed Dexter Bay MD [address] [address], [place], [address], [facility] 12/23/2019 14:43:33 01/29/20 14 Colonoscopy completed Dexter Bay MD [address] [address], [place], [address], [facility] 12/23/2019 14:43:52 splenectomy completed Dexter Bay MD [address] [facility] [address], [place], [address], [facility] 12/23/2019 06:49:28 Knee Surgery completed Dexter Bay MD [address] [facility] [address], [place], [address], [facility] 12/23/2019 14:42:55 Hernia Repair [facility]12[facility] 14:03:53 Imaging Results Imaging Date Name Status LastModified by Organiz ation Details LastModified Time 12/18/2020 XR, thoracic spine, 3 view completed [facility] (Outpt Imaging) [address] [place] [address], [address], 01/31/2021 16:39:05 01/10/2021 CT, chest, w/o contrast completed [facility] (Outpt Imaging) [address] [place], [address], 01/31/2021 16:39:05 09/02/2022 XR, shoulder, 2 or more view completed [facility] (Outpt Imaging) [address] [place] [address], [address], 09/20/2022 22:28:29 Procedure Notes None recorded. Medical [...] Updated DateTime 1 170.18 cm 26.2 kg/m2 91273.9 3 g 66 /min 98 % 98 % 98.42 [degF] 120 mm[Hg] 72 mm[Hg] [facility] 1 15:30:26 Date Recorded Body height Body mass index (BMI) Body weight Heart rate Oxygen saturation Oxygen saturation in Arterial blood by Pulse oximetry Body temperature Systolic blood pressure Diastolic blood pressure Provider Name and Address Organization Details Last Updated DateTime 1 170.18 cm 26.2 kg/m2 96801.9 3 g 65 /min 99 % 99 % 98.42 [degF] 123 mm[Hg] 70 mm[Hg] [facility] 1 16:15:50 Date Recorded Body height Body mass index (BMI) Body weight Heart rate Oxygen saturation Oxygen saturation in Arterial blood by Pulse oximetry Body temperature Systolic blood pressure Diastolic blood pressure Provider Name and Address Organization Details Last Updated DateTime 2 170.18 cm 26.2 kg/m2 74002.3 3 g 103 /min 96 % 96 % 97.7 [degF] 117 mm[Hg] 73 mm[Hg] Jackie Cooper [facility] 2 14:14:40 Date Recorded Heart rate Provider Name an d Address Organization Details Last Updated DateTime 06/12/2021 88 /min Dexter Cho i, MD [address], [address], [facility] 06/21/2021 06:56:35 Date Recorded Body height Body mass index (BMI) Body weight Heart rate Oxygen saturation Oxygen saturation in Arterial blood by Pulse oximetry Body temperature Systolic blood pressure Diastolic blood pressure Provider Name and Address Organization Details Last Updated DateTime 3 170.18 cm 26.5 kg/m2 35007.1 1 g 70 /min 96 % 96 % 98 [degF] 138 mm[Hg] 89 mm[Hg] Jackie George [facility] 3 15:17:42 Date Recorded Body height Body mass index (BMI) Body weight Heart rate Oxygen saturation Oxygen saturation in Arterial blood by Pulse oximetry Body temperature Systolic blood pressure Diastolic blood pressure Provider Name and Address Organization Details Last Updated DateTime 3 170.18 cm 26.3 kg/m2 13119.5 2 g 71 /min 97 % 97 % 98.5 [degF] 143 mm[Hg] 88 mm[Hg] Radha Guerra MA [facility] 3 15:32:29 Social History Question Answer Notes LastModified by Organizat ion Details LastModified Time Tobacco Smoking Status Never Smoker SUBHASH [place], [facility] 08/31/2019 13:12:31 Do You Have An [...] not available 06/12/2021 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 [employer] Information not available 06/12/2021 Live [...] 12/23/2019 Have You Recently Traveled To A [place] [address] High Risk Area Or Gathering In The [...] mcg/0.3 mL dose 1 completed SUBHASH [place] [facility] 08/26/2022 15:12:05 COVID-19, mRNA, LNP-S, PF, 30 mcg/0.3 mL dose 1 completed SUBHASH [place], [facility] 08/26/2022 15:12:05 COVID-19, mRNA, LNP-S, PF, 30 mcg/0.3 mL dose 2 completed [place] [facility] 06/12/2021 14:11:45 Tdap 0 completed [place]ASH [facility] 12/23/2019 16:09:45 pneumococcal polysaccharide PPV23 0 completed [place] 12/23/2019 16:09:46 Influenza, split virus, quadrivalent, PF 0 completed Fermin Powers PA-C [address], [address], [facility] 01/24/2020 16:21:39 Influenza, split virus, quadrivalent, PF 2 completed SUBHASH [place] [facility] 06/12/2021 16:04:25 Past Encounters Encounter ID Performer Location Encounter Start Date Encounter Closed Date Diagnosis/Indication Diagnosis SNOMED-CT Code Diagnosis ICD10 Code Diagnosis Note [id number] Dexter Bay MD Main Office [address] [facility] [address] [place] [address] 08/31/2019 11:56:03 08/31/2019 14:09:18 Tinea pedis 7784772 B35.3 Most likely fungal less likely eczema. If not response to antifungal would try a medium potency topical steroid. Advised to call with any problems or changes. [id number] Dexter Bay MD Main Office [address] [facility] [address] [place] [address] 12/23/2019 13:56:53 12/23/2019 15:32:56 Adult health examination 405388214 Z00.00 Immunizati ons partially updated. Flu advised in the Fall, Shingrix advised via local pharmacy. Will screen based on risk factors. Regular dental and ophtho care advised as well as seat belt and suncreen use. Distracted driving discussed. Advance directives in place. Administra tion of viral vaccine 14021121 Z23 Varicella vaccination 68 767374 Z23 Hepatitis C screening 41 7081147 Z11.59 Body mass index 25-29 - overweight 629837327 E66.3 Z68.25 Hypercholesterolemia 136 97495 E78.2 Has history, will reassess and discuss mgmt based on CVD risk score. History of calculus of kidney 971811038 Z87.442 History of splenectomy 513423925 Z90.81 Should get menigitis vaccine as well. Will defer for now. Screening for malignant neoplasm of prostate 330127473 Z12.5 Chest pain 25378024 R07. 9 Based on age and dyslipidem ia, ischemic cardiac evaluation is indicated. Easy bruising 449752925 R58 Obstructiv e sleep apnea syndrome 24067548 G47.33 Pt reports intoleranc e to treatment in the past. Will monitor. [id number] Fermin Powers PA-C Main Office [address] [facility] [address] [place] [address] 01/24/2020 15:44:23 01/25/2020 10:51:34 Needs influenza immunization 963278764 Z23 Abdominal bloating 45322 9008 R14.0 pt had large amount of cruciferou s veggies over the weekend - gas/bloati ng likely caused his mild splenic flexure syndrome / rib pain (s/p splenectom y, likely more sensitive area) - no constipati on so no need for colace plus eats plenty of fiber -- rec probiotic qd c beano prn [id number] Dexter Bay MD Main Office [address] [address] [place] [address] 02/15/2020 14:46:14 02/15/2020 16:06:22 Hepatitis C antibody detected 601290975 Z86.19 Will check viral load. If negative presume false positive ab test. Hyperlipidemia 11629499 E78.5 CVD risk score 11%. Pt advised of this and that statin might mitigate risk. Declined for now. Wants to work on TLC. Impaired f asting glycemia 367652581 R73.01 Will monitor. [id number] Dexter Bay MD Main Office [address] [place] [address] 10/17/2020 12:41:14 10/17/2020 13:23:15 Anterior chest wall pain 589401350 R07.89 Screen for inflammato ry process, nutritiona l deficiency . May need CT scan or possibly MRI depending on results and symptom progressio n. Albuminuria 761890458 R8 0.9 Will reassess and refer for urologic imaging if abnormal. [id number] Dexter Bay MD Main Office [address] [address] [place] [address] 12/18/2020 14:45:26 12/18/2020 16:06:11 Chest wall pain 935889665 R07.89 Etiology remains unclear. Possible radicular pain so will image thoracic spine however xray was normal. Will pursue CT scan of chest to look for chest wall/pulmo nary cause. Non-healin g pigmented skin lesion 347962534 L98.8 Looks like a chronicall y inflammed ingrown hair, but duration of presence and pt concerns warrants further assessment . Pigmented nature mildly concerning . [id number] Fermin Powers PA-C Main Office [address] [address] [place] [address] 01/31/2021 15:48:47 02/02/2021 11:15:28 Chest wall pain 993336166 R07.89 see below - pt has had multiple radiologic studies lately - ct chest found debris filled stomach and constipati on - pt defers further testing at this time - see below wonder if pt has referred pain from upper abdomen into thoracic region - see below Abdominal pain 03803120 R10.9 see above - ? has splenic flexure syndrome as is s/p splenectom y age 17 (adhesions ) - see below Chronic constipation 236 047947 K59.09 rec. laxaclear (generic for miralax at [employer]) 1/2 - 1 scoop in 8 oz. of any fluid 1-2x/daily . rec. eat less bananas and drink more water. rec. eat more grapes, oranges, and pears. in future, if no bm x 3 days, then use 1-2 tabs of senna or dulcolax as needed. [id number] Dexter Bay MD Main Office [address] [facility] [address] [place] [address] 06/12/2021 14:00:48 06/12/2021 15:10:06 Adult health examination 898568517 Z00.00 Immunizati ons partially updated. Shingrix, and menactra advised via local pharmacy. Will screen based on risk factors. Regular dental and ophtho care advised as well as seat belt and suncreen use. Distracted driving discussed. Advance directives in place. Body mass index 25-29 - overweight 525240214 E66.3 Z68.26 Impaired f asting glycemia 624948937 R73.01 Will monitor. Hypercholesterolemia 136 94055 E78.2 Has history, will reassess and discuss mgmt based on CVD risk score. History of splenectomy 898036967 Z90.81 Should get meningitis vaccine as well. Advised to pursue at local pharmacy. Pneumococc al vaccinatio n status utd. Varicella vaccination 68 288854 Z23 Gallstone 406732019 K80. 20 Asymptomat ic. Counseled on concerning signs/symp tomss including those which warrant urgent evaluation . If noted or labs become abnormal will refer to surgery. Obstructiv e sleep apnea syndrome 05900747 G47.33 Pt reports intoleranc e to treatment in the past. Will monitor. Screening for malignant neoplasm of colon 948594868 Z12.11 Nocturia 628841705 R35.1 Needs infl uenza immunization 212947247 Z23 Hepatitis C antibody detected 167162958 Z86.19 Undetectab le viral load, consistent with cleared infection. [id number] Dexter Bay MD Main Office [address] [facility] [address] [place] [address] 08/26/2022 15:02:03 08/26/2022 16:18:37 Adult health examination 643221746 Z00.00 Immunizati ons partially utd. Shingrix, menactra and PCV20 advised via local pharmacy. Will screen based on risk factors. Regular dental and ophtho care advised as well as seat belt and suncreen use. Distracted driving discussed. Advance directives in place. Administra tion of pneumococcal vaccine 06299550 Z23 Varicella vaccination 68 156644 Z23 Body mass index 25-29 - overweight 035903321 E66.3 Z68.26 Nocturia 609690011 R35.1 History of splenectomy 084733041 Z90.81 Needs PCV20, meningococ [place] utd. Tinea pedis 8601260 B35. 3 Most likely fungal less likely eczema. If not response to antifungal would try a medium potency topical steroid. Advised to call with any problems or changes. Albuminuria 934602640 R8 0.9 Will reassess and refer for urologic imaging if abnormal. Hypercholesterolemia 136 11946 E78.2 Based on current CVD risk score statin therapy advised. Pt would like to reassess/d efer for now. Understand s/accepts potential consequenc es. Impaired f asting glycemia 307292757 R73.01 Will monitor. Disorder of shoulder 118 494858 M75.92 Start with imaging and refer to ortho/PMR accordingl y. [id number] Triston Robert MD Main Office [address] [facility] [address] [place] [address] 10/22/2022 14:53:40 10/22/2022 16:08:53 Contact dermatitis caused by urushiol from [facility] oswald 906827836 L25.5 Not extensive and already present for more than a week so will treat with a potent steroid cream. Pain of ri ght knee joint 8099292179 66427 M25.561 He will take an NSAID for [...] Vigil Member ID Guarantor Name 12/18/2020 1 [facility] Everett Beltran [id number] Everett Beltran 01/31/2021 1 [facility] Everett Beltran [id number] Everett Beltran 06/12/2021 1 [facility] Everett Beltran [id number] Everett Beltran 08/26/2022 1 [facility] Everett Beltran [id number] Everett Beltran 10/22/2022 1 [facility] Everett Beltran [id number] 0 Everett Beltran Notes Date Note Type [...] forwarded here. 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 Patient presents with > 6 months of bilateral lower chest wall pain. States that it is present on awakening in the AM. No correlation to exertion. Denies dyspnea or worsening with deep breathing. Chest xray and abdominal u/s were normal. Labs unremarkable as well. Dexter Bay MD [address] [facility] [address], [place], [address], [facility] [place] 12/19/2020 07:16:19 01/31/2021 text/html here for [...] h/o psychiatric meds Fermin Powers PA-C [address] [address], [place], [address], [facility] 01/31/2021 17:30:07 06/12/2021 text/html Generic HPI TemplateReported bypatient.Notes:Here for physical, feels well. Seeing dentist and ophtho regularly. Dexter Bay MD [address], [address], [facility] 06/21/2021 07:02:20 08/26/2022 text/html Generic HPI TemplateReported bypatient.Notes:Here for physical, feels well. Seeing dentist and ophtho regularly. Dexter Bay MD [address] [address], [place], [address], [facility] 09/13/2022 07:57:40 10/22/2022 text/html He was working o [employer] more than a week ago and developed [...] past 90 degrees. Triston Robert MD [address], [address], [facility] 10/22/2022 18:05:14
--- OUTSIDE RECORDS SUMMARY | 2024-08-27 09:58 | XMS_ITS | Data Portability ---
Author Organization [facility] [place] Address [address] [place] [phone] Care Team Providers Care Medical Library Assistant Name Role Phone HIM CCA OTHER ARIADNA CARUSO Primary Care Provider [phone] Assessment Encounter Date Assessment Date Assessment LastModified by Organization Details LastModified Time 01/17/2024 01/17/2024 I have reviewed and agree with the assessment and plan as documented by the junior copywriter. I provided real time medical direction for this encounter and was immediately available to provide additional phone based assistance as needed. History as noted by junior copywriter. Pt reports no significant PMH although he [...] including: lipid panel, echocardiogram, 14 day patch city auditor, and ETT to assess his recent symptoms. [...] BMP, serum or plasma [email or web address], [address] 13:04:47 Referral None recorded. Procedures None recorded. Surgeries None recorded. Imaging electrocard iogram [email or web address], [address] 14:31:29 Medication Orders None recorded. Patient TargetsNo targets recorded. Patient InstructionsNo instructions recorded. Reason for Referral None Reported. Results Created Date Observation Date Name Description Value Unit Range Abnormal Flag Note LastModifiedBy Organization Detail LastModifiedTime 01/17/20 24 01/17/2024 elect jeanie humberto am No observ ation record ed. [email or web address] [address], [address] 01/17/2024 13:09:44 Result Notes None recorded. Procedures Surgical History None recorded. Imaging Results Imaging Date Name Status LastModified by Organization Details LastModified Time 01/17/2024 electrocardiogram completed [email or web address] [address], [address] 01/17/2024 13:09:44 Procedure Notes None recorded. Medical [...] Address Organization Details Last Updated DateTime 4 45039.6 8 g 98.1 [degF] 88 /min 16 /min 97 % 97 % 170.18 cm 145 mm[Hg] 96 mm[Hg] Not Available [facility] - production 4 12:51:40 Social History None recorded. Functional Status None recorded. Mental Status None recorded. Family History Nothing Reported. Medical History No medical history recorded. Past Encounters Encounter ID Performer Location Encounter Start Date Encounter Closed Date Diagnosis/Indication Diagnosis SNOMED-CT Code Diagnosis ICD10 Code Diagnosis Note [id number] Phill You MD Main - [facility] [address] [place] [phone] 01/17/2024 12:51:26 01/17/2024 18:23:46 Atypical chest pain 706489022 R07.89 Health Concerns Section Related Observation LastModified by Organization Detai ls LastModified Time None Recorded Concern Status LastModified by Organization Details LastModified Time None Recorded Advance Directives Directive None Recorded Payers Encounter Date Sequence Insurance Name Policy Number Policy Vigil Covered Member ID Vigil Member ID Guarantor Name 01/17/2024 1 [facility] - DOS ON OR AFTER 2022 - MEDICARE [place]ANTAGE [place] RE[place]ACEMENT/ADV ANTAGE - PPO) [facility] [id number] [facility] Notes Date Note Type Note Provider Name and Address Organization Details Recorded Time 01/17/2024 text/html This was a supervised home visit with junior copywriter Corey Roman. CRC Nurse Triage Notes (Stephanie [...] emergency treatment if needed. Kera Peralta RN Foreign Service Teacher Organization Information for Jessie Corey Lehman DENY Legal Name: [facility] Address: [address] [place] [address], [place] [address], Bus Greaser: Vaughn Zhong MD CLIA No.: [id number] Foreign Service Teacher POC Test Results from ElverCorey basurto EKG (12:31:56) EKG test performed. Attachments uploaded [...] .................... .................... .................... .................... .................... .................... . Foreign Service Teacher Note From Raschilla, Corey: Pt reporting mild WILEY in the morning, [...] . Disposition: Fulfilled Phill You MD [address] [facility],[address], [place], [address], SONNY ORDOÑEZ 01/17/2024 13:21:09
== END ==
LOC: HO.CARD 09:43
PROVIDERS: PCP Internal Medicine; Visit Provider Internal Medicine
DX: I20.89 Other forms of angina pectoris (principal)
CPT/HCPCS: 78452; 93017; A9500

== ENCOUNTER → 2024-08-27 09:45 | Outpatient (BNV) | payer MEDICARE, SELFPAY | PROVIDERS: PCP Internal Medicine | DX: R06.02 Shortness of breath (principal); I49.1 Atrial premature depolarization; I49.3 Ventricular premature depolarization | CPT/HCPCS: 78452; 93016; 93018 ==

== ENCOUNTER 2024-09-29 06:23 | Outpatient (REF) | payer MEDICARE, SELFPAY ==
[2024-09-29 10:18] LABS: MANUAL DIFF FLAG NO
[2024-09-29 10:22] LABS: Appearance Urine Turbid; Color Urine Yellow; Glucose Urine UA Negative (Negative); Leukocyte Esterase Urine Negative (Negative); Nitrite Urine Negative (Negative); PH 5.5 (5.0-9.0); Specific Gravity - Urine >= 1.030 (1.005-1.025); Urine Blood Negative (Negative); Urine Ketones Trace mg/dL (Negative); Urine Protein Trace mg/dL (Neg-Trace)
[2024-09-29 10:25] LABS: Basophils Absolute Auto 0.1 X10*3/uL (0.0-0.2); Basophils Percent Auto 1.3 % (0-2); Eosinophils Absolute Auto 0.1 X10*3/uL (0.0-0.4); Eosinophils Percent Auto 1.3 % (0-4); Hematocrit 44.8 % (42.0-52.0); Hemoglobin 15.2 g/dl (14.0-18.0); Imm Gran Abs Auto 0.02 X10*3/uL (0.00-0.03); Imm Gran Pct Auto 0.3 % (0.0-0.4); Lymphocytes Absolute Auto 1.9 X10*3/uL (1.2-4.9); Lymphocytes Percent Auto 28.7 % (20-40); Mean Corpuscular HGB Conc 33.9 g/dl (31.0-36.0); Mean Corpuscular Hemoglobin 30.5 pg (27.0-33.0); Mean Corpuscular Volume 89.8 fL (80.0-98.0); Mean Platelet Volume 11.9 fL (9.4-12.4); Monocytes Absolute Auto 0.6 X10*3/uL (0.1-1.2); Monocytes Percent Auto 9.1 % (2-11); Neutrophils Percent Auto 59.3 % (45-73); Platelet Count 274 X10*3/uL (160-400); Red Blood Count 4.99 X10*6/uL (4.60-5.80); Red Cell Distribution Width 15.6 % (11.0-16.0); White Blood Count 6.7 X10*3/uL (4.8-10.8)
[2024-09-29 10:31] LABS: Bacteria Urine None Seen (None Seen); Calcium Oxalate Crystals Urine Present; Hyaline Casts Urine 0-2 /LPF (0-2); RBC Urine 0-2 /HPF (0-2); Squamous Epithelial Cell Urine 0-2 /HPF (0-2); WBC Urine 0-5 /HPF (0-5)
[2024-09-29 10:46] LABS: Alanine Aminotransferase 29 U/L (0-40); Albumin Level 4.2 g/dL (3.5-5.0); Alkaline Phosphatase 96 U/L (39-117); Anion Gap 10 (12-20); Aspartate Amino Transferase 41 U/L (5-37); Blood Urea Nitrogen 23 mg/dL (9-16); Calcium 8.9 mg/dL (8.4-10.2); Carbon Dioxide 26 mmol/L (22-29); Chloride 109 mmol/L (96-108); Cholesterol 278 mg/dL (<200); Estimated Glomerular Filt Rate > 60; Glucose Fasting 92 mg/dL (60-99); HDL Cholesterol 52 mg/dL (>40); LDL Cholesterol Calculated 200 mg/dL (<100); Potassium 3.8 mmol/L (3.3-5.1); Sodium 141 mmol/L (135-145); Total Protein 6.9 g/dL (6.5-8.0); Triglycerides 132 mg/dL (<150)
[2024-09-29 10:56] LABS: PSA,Total (Free>4and<10) 1.58 ng/mL (0.00-4.00)
== END 2024-09-29 06:24 | disposition home or self-care (01) ==
LOC: HO.HMGCLDS 06:23
PROVIDERS: PCP Internal Medicine; Visit Provider Internal Medicine
DX: I10 Essential (primary) hypertension (principal); E78.5 Hyperlipidemia, unspecified; Z12.5 Encounter for screening for malignant neoplasm of prostate
CPT/HCPCS: 36415; 80053; 80061; 81001; 84153; 85025

== ENCOUNTER 2024-10-11 11:31 | Outpatient (AMB) | payer MEDICARE, SELFPAY ==
[2024-10-11 12:09] VITALS: BP 122/82; PULSE 72; RESP 18; TEMP 36.6; O2SAT 97; BMI 26.0
--- NOTE | 2024-10-11 12:09 | MHC.PC.OV ---
Vital Signs 10/11/24 12:09 Height 5 ft 7 in Weight 166 lb BMI 26.0 BP 122/82 Blood Pressure Location Lt brachial Position Sitting Respiration 18 Pulse 72 Pulse Source Pulse Oximeter Temp 97.9 F Temp Source Oral Pulse Oximetry (%) 97 Oxygen Delivery Method Room Air Intake Visit Reasons: 6 months f/up Intake Note: Pt is here today for 6 months follow up visit. Allergies No Known Allergies Allergy (Verified 10/11/24 12:10) Medication List - Last Reconciled 10/11/24 by Victorina Chris MD cholecalciferol (vitamin D3) 50 mcg PO DAILY diclofenac sodium 1% (Aleve (diclofenac)) 2 grams topical QID fish oil-dha-epa PO sildenafil 50 mg PO DAILY PRN Tobacco use date assessed: 10/11/24 Fall risk assessment: No Falls in past year Last assessed Fall Risk: 10/11/24 Dental Screening Dental Screen Date: 07/16/24 HPI 6 months f/up HPI Details Pt presents for f/u. He complains of chronic bilateral lower rib pain worse when bending for lifting heavy. He denies mid or lower back pain weakness or numbness in extremities GI complaints. [facility] Medical History (Updated 10/11/24 @ 13:28 by Victorina Chris MD) Rib pain Palpitations Benign skin cyst Sleep apnea Hyperlipidemia Surgical History No pertinent past surgical history Family History Brother Substance use disorder Social History Housing: House Patient Tobacco Use Status: Never used Tobacco e-Cigarette/Vaping Use: Never Used service: No Current occupational status: employed Cognitive needs: No Hearing needs: No Vision needs: Yes Questionnaire PHQ-9 Over the last 2 weeks, how often have you been bothered by any of the following problems? 1. Little interest or pleasure in doing things: not at all 2. Feeling down, depressed, or hopeless: not at all 3. Trouble falling or staying asleep, or sleeping too much: not at all 4. Feeling tired or having little energy: not at all 5. Poor appetite or overeating: not at all 6. Feeling bad about yourself - or that you are a failure or have let yourself or your family down: not at all 7. Trouble concentrating on things, such as reading the newspaper or watching television: not at all 8. Moving or speaking so slowly that other people could have noticed. Or the opposite - being so fidgety or restless that you have been moving around a lot more than usual: not at all 9. Thoughts that you would be better off or of hurting yourself in some way: not at all Total score: 0 Depression Screening Interpretation: Negative Depression Screening Done: Yes 99348 - PHQ-9 Billing: Yes Source: Developed by Drs. Clint Hunt, April Tomas, Yung Wade and colleagues, with an educational myla from [employer]. Thrive Questionnaire Date Thrive assessed: 07/16/24 I am a: Patient What is your living situation today?: I have a steady place to live Within the past 12 months, did the food you bought not last and you didn't have the money to get more?: Never true Within the past 12 months, did you worry whether your food would run out before you got money to buy more?: Never true Do you have trouble paying for medicines?: No Do you have trouble getting transportation to medical appointments?: No Do you have trouble paying your heating and electricity bill?: No Do you have trouble taking care of your child, family member or friend?: No Do you have trouble with day-to-day activities such as bathing, preparing meals, shopping, managing finances, etc.?: No Are you currently unemployed and looking for a job?: No Are you interested in more education?: No Please select the resources that you would like help with: None Currently or been in a relationship where the following occur: No concerns reported THRIVE Score: 0 AUDIT C Alcohol Use Questionnaire (AUDIT-C) 1. How often do you have a drink containing alcohol?: Never Total Score: 0 AMBER-7 AMB Questionnaire AMBER-7 Date AMBER - 7 assessed: 07/16/24 Feeling nervous, anxious, or on edge: 0 = Not at all Not being able to stop or control worryin = Not at all Worrying too much about different things: 0 = Not at all Trouble relaxin = Not at all Being so restless that it is hard to sit still: 0 = Not at all Becoming easily annoyed or irritable: 0 = Not at all Feeling afraid as if something awful might happen: 0 = Not at all Total AMBER-7 score (0-4 normal; 5-9 mild; 10-14 moderate; 15-21 severe): 0 Source: Developed by Drs. Clint Hunt, April Tomas, Yung Wade and colleagues, with an educational myla from [employer]. Review of Systems Const All systems reviewed & are unremarkable except as noted in HPI and below Eyes Reports no additional complaints ENT Reports no additional complaints Card Reports no additional complaints Resp Reports no additional complaints GI Reports no additional complaints Reports no additional complaints Physical exam (Primary Care) Vital Signs: Last Vital Signs Temp 97.9 F 10/11/24 12:09 Pulse 72 10/11/24 12:09 Resp 18 10/11/24 12:09 BP 122/82 10/11/24 12:09 Pulse Ox 97 10/11/24 12:09 Oxygen Delivery Method Room Air 10/11/24 12:09 BMI result Body Mass Index 26.0 Tobacco/Smoking Status: Tobacco use Status Tobacco use date assessed 10/11/24 10/11/24 12:13 Patient Tobacco Use Status Never used Tobacco 10/11/24 12:10 e-Cigarette/Vaping Use Never Used 10/11/24 12:10 PHQ-9: PHQ-9 Score PHQ-9: Total score 0 10/11/24 12:10 Depression Screening Interpretation: Negative Thrive Assessment: Date of Thrive Assessment Date Thrive assessed 07/16/24 10/11/24 12:10 Currently or been in a relationship where the following occur: No concerns reported Const General: no acute distress HENMT Head: Yes normal to inspection Face and sinus: Yes normal facial exam Neck Neck: Yes no lymphadenopathy and Yes supple Chest Chest palpation & inspection: normal inspection of the chest Resp Effort & Inspection: normal respiratory effort Auscultation: clear to auscultation bilaterally Cardio Rhythm: regular rhythm Heart sounds: S1 normal heart sound present and S2 normal heart sound present GI Inspection: Yes normal to inspection Palpation (GI): Soft to palpation Percussion: Yes normal to percussion Auscultation: normal bowel sounds Skin Other: Left anterior shoulder 2 cm mobile slightly tender subcutaneous soft mass no erythema warmth Coding Level of Care Code Est Pt Level 4 (08648) Diagnoses Hyperlipidemia, unspecified hyperlipidemia type E78.5 Hyperlipidemia type: unspecified Sleep apnea G47.30 Benign skin cyst L72.9 Additional Codes PHQ-9 - 92414 - PHQ-9 Billing: Yes ([id number]) Assessment & Plan Assessment & Plan (1) Hyperlipidemia: Comment: Patient has discontinued and refuses to take atorvastatin Code(s): E78.5 - Hyperlipidemia, unspecified Category: Medical Qualifiers: Hyperlipidemia type: unspecified Qualified Code(s): E78.5 - Hyperlipidemia, unspecified Plan: Continue low-cholesterol diet. Patient declined taking statins. He is interested in obtaining CT coronary calcium score which is ordered. Patient is made aware that is a self-pay test (2) Sleep apnea: Comment: Moderately severe sleep apnea, referred to sleep Medicine 04/2024 Code(s): G47.30 - Sleep apnea, unspecified Category: Medical Plan: Continue CPAP (3) Benign skin cyst: Comment: left shoulder Code(s): L72.9 - Follicular cyst of the skin and subcutaneous tissue, unspecified Category: Medical Plan: Referred to general surgeon Orders: Orders CT Coronary Calcium Score Today E78.00 - Pure hypercholesterolemia, unspecified XR shoulder LT min 2V Today M25.512 - Pain in left shoulder Complete Blood Count Auto Diff 1 Year E78.5 - Hyperlipidemia, unspecified, G47.30 - Sleep apnea, unspecified, L72.9 - Follicular cyst of the skin and subcutaneous tissue, unspecified, R07.81 - Pleurodynia, Z00.00 - Encounter for general adult medical examination without abnormal findings PSA,Total (Free>4and<10) 1 Year E78.5 - Hyperlipidemia, unspecified, G47.30 - Sleep apnea, unspecified, L72.9 - Follicular cyst of the skin and subcutaneous tissue, unspecified, R07.81 - Pleurodynia, Z00.00 - Encounter for general adult medical examination without abnormal findings UA w Microscopic 1 Year E78.5 - Hyperlipidemia, unspecified, G47.30 - Sleep apnea, unspecified, L72.9 - Follicular cyst of the skin and subcutaneous tissue, unspecified, R07.81 - Pleurodynia, Z00.00 - Encounter for general adult medical examination without abnormal findings Comprehensive [place]. Panel Fast 1 Year E78.5 - Hyperlipidemia, unspecified, G47.30 - Sleep apnea, unspecified, L72.9 - Follicular cyst of the skin and subcutaneous tissue, unspecified, R07.81 - Pleurodynia, Z00.00 - Encounter for general adult medical examination without abnormal findings Lipid Panel 1 Year E78.5 - Hyperlipidemia, unspecified, G47.30 - Sleep apnea, unspecified, L72.9 - Follicular cyst of the skin and subcutaneous tissue, unspecified, R07.81 - Pleurodynia, Z00.00 - Encounter for general adult medical examination without abnormal findings Referrals Gastroenterology Referral Z00.00 - Encounter for general adult medical examination without abnormal findings General Surgery Referral L72.9 - Follicular cyst of the skin and subcutaneous tissue, unspecified
--- OUTSIDE RECORDS SUMMARY | 2024-10-11 13:11 | XMS_ITS | Data Portability ---
Author Organization [employer], [facility] Address [address] [place] [address] Care Team Providers Care Directional Driller Name Role Phone HIM CCA OTHER ARIADNA CARUSO Primary Care Provider Assessment Encounter Date Assessment Date Assessment LastModified by Organization Details LastModified Time 01/17/2024 01/17/2024 I have reviewed and agree with the assessment and plan as documented by the senior firmware engineer. I provided real time medical direction for this encounter and was immediately available to provide additional phone based assistance as needed. History as noted by senior firmware engineer. Pt reports no significant PMH although he [...] including: lipid panel, echocardiogram, 14 day patch teletypesetter monitor, and ETT to assess his recent [...] BMP, serum or plasma [email or web address], [address] 13:04:47 Referral None recorded. Procedures None recorded. Surgeries None recorded. Imaging electrocard iogram [email or web address], [address] 14:31:29 Medication Orders None recorded. Patient TargetsNo targets recorded. Patient InstructionsNo instructions recorded. Reason for Referral None Reported. Results Created Date Observation Date Name Description Value Unit Range Abnormal Flag Note LastModifiedBy Organization Detail LastModifiedTime 01/17/20 24 01/17/2024 elect jeanie robledogr am No observ ation record ed. [email or web address] [address], [address] 01/17/2024 13:09:44 Result Notes None recorded. Medical Equipment None Reported. [...] Address Organization Details Last Updated DateTime 4 72290.6 8 g 98.1 [degF] 88 /min 16 [...] SNOMED-CT Code Diagnosis ICD10 Code Diagnosis Note [id number] Phill You MD Main - [facility] [address] [place] [phone] 01/17/2024 12:51:26 01/17/2024 18:23:46 Atypical chest pain 687794929 R07.89 Health Concerns Section Related Observation LastModified by Organization Detai ls LastModified Time None Recorded Concern Status LastModified by Organization Details LastModified Time None Recorded Advance Directives Directive None Recorded Payers Insurance Date Sequence Insurance Name Policy Number Policy Vigil Covered Member ID Vigil Member ID Guarantor Name 01/17/2024 1 [facility] - DOS ON OR AFTER 2022 - MEDICARE [place]AGE [place]ACEMENT/ADV ANTAGE - PPO) [facility] [id number] [facility] Notes Date Note Type Note Provider Name and Address Organization Details Recorded Time 01/17/2024 text/html This was a supervised home visit with senior firmware engineer Corey Roman. CRC Nurse Triage Notes (Stephanie [...] emergency treatment if needed. Kera Peralta RN Computer Systems Integrator Organization Information for Corey Roman Legal Name: [facility] Address: [address] [place] [address], [place] [address], Character Artist: Vaughn Zhong MD CLIA No.: [id number] Computer Systems Integrator POC Test Results from Corey Roman EKG [...] .................... .................... .................... .................... .................... .................... . Computer Systems Integrator Note From Corey Roman: Pt reporting mild [...] . Disposition: Fulfilled Phill You MD [address] [facility],[address], [place], [address], SONNY ORDOÑEZ 01/17/2024 13:21:09
== END 2024-10-11 13:31 | disposition home or self-care (01) ==
PROVIDERS: PCP Internal Medicine; Visit Provider Internal Medicine
DX: E78.5 Hyperlipidemia, unspecified (principal); G47.30 Sleep apnea, unspecified; L72.9 Follicular cyst of the skin and subcutaneous tissue, unspecified

== ENCOUNTER → 2024-10-11 11:31 | Outpatient (BNVA) | payer MEDICARE, SELFPAY | PROVIDERS: PCP Internal Medicine; Visit Provider Internal Medicine | DX: E78.5 Hyperlipidemia, unspecified (principal); G47.30 Sleep apnea, unspecified; L72.9 Follicular cyst of the skin and subcutaneous tissue, unspecified; Z99.89 Dependence on other enabling machines and devices; Z13.31 Encounter for screening for depression | CPT/HCPCS: 96127; 99212 ==

== ENCOUNTER 2024-10-12 11:12 | Outpatient (REF) | payer MEDICARE, SELFPAY ==
--- NOTE | ~2024-10-12 | XR_ITS ---
EXAMINATION: XR SHOULDER, LEFT CLINICAL INFORMATION: M25.512 - Pain in left shoulder COMPARISON: None available. TECHNIQUE: AP external rotation, Grashey, scapular Y, and axillary views of the left shoulder. FINDINGS: Mild degenerative hypertrophy is noted in the AC joint. There is no AC joint separation. There is no subacromial spur. Glenohumeral joint is intact XR/XR shoulder LT min 2V IMPRESSION: Unremarkable left shoulder side from mild AC joint arthropathy. Electronically signed by: Randell Purdy MD 10/12/2024 06:27 PM EDT
--- OUTSIDE RECORDS SUMMARY | 2024-10-12 13:26 | XMS_ITS | Data Portability ---
Author Organization [facility] Address [address] [place] [address] Care Team Providers Care Ski Patrol Name Role Phone HIM CCA OTHER ARIADNA CARUSO Primary Care Provider [phone] Assessment Encounter Date Assessment Date Assessment LastModified by Organization Details LastModified Time 01/17/2024 01/17/2024 I have reviewed and agree with the assessment and plan as documented by the ambulance officer. I provided real time medical direction for this encounter and was immediately available to provide additional phone based assistance as needed. History as noted by ambulance officer. Pt reports no significant PMH although he [...] including: lipid panel, echocardiogram, 14 day patch campus monitor, and ETT to assess his recent [...] BMP, serum or plasma [address] [place] [address], [address] 4 13:04:47 Referral None recorded. Procedures None recorded. Surgeries None recorded. Imaging electrocard iogram 2023 [email or web address], [address] 14:31:29 Medication Orders None recorded. Patient TargetsNo targets recorded. Patient InstructionsNo instructions recorded. Reason for Referral None Reported. Results Created Date Observation Date Name Description Value Unit Range Abnormal Flag Note LastModifiedBy Organization Detail LastModifiedTime 01/17/20 24 01/17/2024 elect jeanie robledogr am No observ ation record ed. [email or web address] [address], [address] 01/17/2024 13:09:44 Result Notes None recorded. Medical [...] Address Organization Details Last Updated DateTime 4 29219.6 8 g 98.1 [degF] 88 /min 16 [...] SNOMED-CT Code Diagnosis ICD10 Code Diagnosis Note [id number] Phill You MD Main - [facility] [address] [place] [phone] 01/17/2024 12:51:26 01/17/2024 18:23:46 Atypical chest pain [id number] R07.89 Health Concerns Section Related Observation LastModified by Organization Detai ls LastModified Time None Recorded Concern Status LastModified by Organization Details LastModified Time None Recorded Advance Directives Directive None Recorded Payers Insurance Date Sequence Insurance Name Policy Number Policy Vigil Covered Member ID Vigil Member ID Guarantor Name 01/17/2024 1 [facility] - DOS ON OR AFTER 2022 - MEDICARE [place]AGE [place]EMENT/ADV ANTAGE - PPO) [facility] [id number] [facility] Notes Date Note Type Note Provider Name and Address Organization Details Recorded Time 01/17/2024 text/html This was a supervised home visit with ambulance officer Corey Roman. CRC Nurse Triage Notes (Stephanie [...] emergency treatment if needed. Kera Peralta RN Traffic Engineering Technician Organization Information for Corey Roman Legal Name: [facility] Transportation Address: [address] [place] [address], [place] [address], Drapery Inspector: Vaughn Zhong MD CLIA No.: [id number] Traffic Engineering Technician POC Test Results from Corey Roman EKG [...] .................... .................... .................... .................... .................... .................... . Traffic Engineering Technician Note From Corey Roman: Pt reporting mild [...] Disposition: Fulfilled Phill You MD [address] [facility],[address], [place], [address], SONNY ORDOÑEZ 01/17/2024 13:21:09
== END 2024-10-12 11:13 | disposition home or self-care (01) ==
LOC: HO.HMGCX 11:12
PROVIDERS: PCP Internal Medicine; Visit Provider Internal Medicine
DX: M25.512 Pain in left shoulder (principal)
CPT/HCPCS: 73030

== ENCOUNTER → 2024-10-12 11:16 | Outpatient (BNV) | payer MEDICARE, SELFPAY | PROVIDERS: PCP Internal Medicine; Visit Provider Radiology Diagnostic Radiology | DX: M25.512 Pain in left shoulder (principal) | CPT/HCPCS: 73030 ==

== ENCOUNTER 2024-12-01 12:38 | Outpatient (AMB) | payer MEDICARE, SELFPAY ==
[2024-12-01 12:50] VITALS: BP 138/68; PULSE 72; O2SAT 97; BMI 26.0
--- NOTE | 2024-12-01 12:50 | A.OFFVIS_ITS ---
Vital Signs 12/01/24 12:50 Height 5 ft 7 in Weight 166 lb BMI 26.0 BP 138/68 Blood Pressure Location Rt brachial Position Sitting Pulse 72 Pulse Source Pulse Oximeter Pulse Oximetry (%) 97 Oxygen Delivery Method Room Air Intake Visit Reasons: precolo Intake Note: New pt for recall colonoscopy. CC; Pt denies any GI sx or concerns at this time. Pt had one colonoscopy which was normal via [place] ~10 years. 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 male with past medical history of osteoarthritis, Raynaud's phenomenon, hyperlipidemia, sleep apnea is here today for pre colonoscopy screening.? Patient was sent to us by his PCP.? Patient had normal colonoscopy 10 years ago.? Patient denies any gastrointestinal symptoms in the past or at present.? Denies any personal or family history of gastrointestinal disease, colon polyps, or CRC.? Denies history of difficulty with sedation or anesthesia in the past.? ? Denies any history of cardiac, renal, pulmonary, or hepatic disease.?? No history of infectious? diseases like hepatitis A, B, C, HIV or tuberculosis.? Patient is not on any anticoagulation [facility] Medical History (Updated 12/01/24 @ 12:59 by HOMERO Bush) Rib pain Palpitations Benign skin cyst Sleep apnea Hyperlipidemia Surgical History (Updated 12/01/24 @ 12:59 by HOMERO Bush) History of colonoscopy Left knee injury Right shoulder injury H/O splenectomy No pertinent past surgical history Family History Brother Substance use disorder Social History Housing: House Patient Tobacco Use Status: Never used Tobacco e-Cigarette/Vaping Use: Never Used service: No Current occupational status: employed Cognitive needs: No Hearing needs: No Vision needs: Yes Review of Systems Const Denies weight gain and Denies weight loss ENT Reports no additional complaints, Denies dysphagia and Denies odynophagia Card Reports no additional complaints Resp Reports no additional complaints GI Denies abdominal pain, Denies belching, Denies melena, Denies bloating, Denies change in bowel habits, Denies dysphagia, Denies excessive flatus, Denies dyspepsia, Denies heartburn, Denies diarrhea, Denies loose stools, Denies nausea, Denies odynophagia and Denies vomiting Reports no additional complaints Musc Reports no additional complaints Neuro Reports no additional complaints Psych Reports no additional complaints Endo Reports no additional complaints Physical Exam Vital Signs: Last Vital Signs Pulse 72 12/01/24 12:50 BP 138/68 12/01/24 12:50 Pulse Ox 97 12/01/24 12:50 Oxygen Delivery Method Room Air 12/01/24 12:50 BMI result Body Mass Index 26.0 Const General: healthy appearing, no acute distress and well developed Nutritional Appearance: well nourished Orientation/consciousness: patient oriented x3 Resp Effort & Inspection: normal respiratory effort, able to speak in complete sentences, no tracheal deviation and symmetric chest movement Auscultation: clear to auscultation bilaterally Cardio Rate: regular rate GI Inspection: Yes normal to inspection and No distended Palpation (GI): Soft to palpation, not firm, nontender and No hepatosplenomegaly present Auscultation: normal bowel sounds General: Yes no CVA tenderness Back/Spine/Pelvis Back: no CVA tenderness Skin General skin exam: elasticity normal, turgor normal and dry skin Neuro General: patient oriented x3 Psych Appearance: grossly normal Mental Status: mental status grossly normal Assessment & Plan Assessment & Plan (1) Screen for colon cancer: Code(s): Z12.11 - Encounter for screening for malignant neoplasm of colon Plan Patient denies any GI, cardiac or respiratory symptoms.? Denies any issues with anesthesia in the past.? History of sleep apnea.? No history infectious diseases in the past or present.? Not on any anticoagulation therapy.? No family or personal history of colon cancer or polyps.? Patient denies melena, hematochezia, unintentional weight loss or ribbon like stools.? Discussed at length the pre-procedure,? prep, diet & medications as well as what to expect prior, during and after the procedure.?? Stressed the importance of good bowel prep.? Recommended the use of Vaseline or Calmoseptine OTC & baby wipes with bowel movements to promote comfort.? ?Patient verbalizes understanding and agrees to plan of care.? He was given the opportunity to ask questions and all questions answered.? We will see him after the procedure.? Medications: New polyethylene glycol 3350 (Miralax) As directed by gastroenterology department at [facility] 238 grams PO ONCE 238 grams 0RF Z12.11 - Encounter for screening for malignant neoplasm of colon bisacodyl (Dulcolax (bisacodyl)) 10 mg (2 x 5 mg) PO BEDTIME 180 tabs 4RF Coding Level of Care Code New Pt Level 3 (29522) Diagnoses Screen for colon cancer Z12.11 Time Spent (min) 40 Comment 30 minutes spent with patient and additional 10 minutes spent reviewing his records
== END 2024-12-01 13:20 | disposition home or self-care (01) ==
LOC: HO.HGI 12:39
PROVIDERS: PCP Internal Medicine; Visit Provider Nurse Practitioner Family
DX: Z01.818 Encounter for other preprocedural examination (principal); Z12.11 Encounter for screening for malignant neoplasm of colon
CPT/HCPCS: 99024

== ENCOUNTER → 2024-12-01 12:38 | Outpatient (BNVA) | payer MEDICARE, SELFPAY | PROVIDERS: PCP Internal Medicine; Visit Provider Nurse Practitioner Family | DX: Z01.818 Encounter for other preprocedural examination (principal) | CPT/HCPCS: 99212 ==

== ENCOUNTER 2024-12-29 10:43 | Outpatient (AMB) | payer MEDICARE, SELFPAY ==
--- NOTE | 2024-12-29 10:46 | A.OFFVIS_ITS ---
Vital Signs 12/29/24 10:52 Height 5 ft 7 in Weight 166 lb BMI 26.0 BP 136/63 Blood Pressure Location Rt brachial Position Sitting Pulse 71 Intake Visit Reasons: Follicular cyst~ Lt ant shoulder Intake Note: Patient referred by pcp Dr. Chris for follicular cyst on Lt ant shoulder. Present for 2yrs. Patient c/o: enlarging lump under skin. Denies pain, oozing. 2nd concern: growth ? cyst on Rt dorsal foot. Painful, bothersome with shoes. 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 He said he has noticed this for about 2 years now. He says that this may have increased in size and this seemed to bother him so he was referred to me She denies any skin changes. [facility] Medical History (Updated 12/29/24 @ 11:08 by Long Durand MD) Ganglion cyst Rib pain Palpitations Benign skin cyst Sleep apnea Hyperlipidemia Surgical History History of colonoscopy Left knee injury Right shoulder injury H/O splenectomy No pertinent past surgical history Family History Brother Substance use disorder Social History Housing: House Patient Tobacco Use Status: Never used Tobacco e-Cigarette/Vaping Use: Never Used service: No Current occupational status: employed Cognitive needs: No Hearing needs: No Vision needs: Yes Review of Systems Const Denies chills and Denies fever(s) Card Denies chest pain, Denies dyspnea and Denies dyspnea on exertion Resp Denies cough, Denies dyspnea and Denies dyspnea on exertion GI Denies hematochezia and Denies change in bowel habits Denies hematuria and Denies difficulty urinating Musc Denies back pain and Denies limited range of motion Neuro Denies focal weakness and Denies convulsions Psych Denies depression and Denies mood swings Physical Exam Vital Signs: Last Vital Signs Pulse 71 12/29/24 10:52 BP 136/63 12/29/24 10:52 BMI result Body Mass Index 26.0 Const General: comfortable and no acute distress Orientation/consciousness: patient oriented x3 Neck Neck: Yes no lymphadenopathy Chest Other: On the left shoulder is note of a hard, mobile mass, about 1 cm in diameter consistent with a ganglion cyst Resp Auscultation: clear to auscultation bilaterally Cardio Rhythm: regular rhythm GI Palpation (GI): Soft to palpation, nontender and no guarding Neuro General: patient oriented x3 Office Procedures FNA BIOPSY FNA Biopsy He was in reclining position. The area of the cyst was prepped and draped. Lidocaine 1% was used for local anesthesia. I used a gauge 18 needle to aspirate the contents of the cyst. This was gelatinous consistent with a ganglion cyst. I applied a Band-Aid. He tolerated procedure well. There were no immediate complications. Fine Needle Aspiration: - FNA 1st lesion w/o image Assessment & Plan Assessment & Plan (1) Ganglion cyst: Code(s): M67.40 - Ganglion, unspecified site Category: Medical Plan: He has a ganglion cyst of the shoulder as described above. I told him that we can aspirate this has happened needle. I explained the technique of this procedure under local anesthesia. He was aware of the risks, benefits, and alternatives and he had given consent Aspiration was done in the office with note of a gelatinous fluid aspirated consistent with a ganglion cyst. He tolerated procedure well I told him that this may recur. He is welcome to come back to the office to have this re-evaluated down the line. Coding Level of Care Code New Pt Level 3 (74685) Diagnoses Ganglion cyst M67.40 CPT Codes FNA Biopsy - Fine Needle Aspiration: 21005- FNA 1st lesion w/o image ([id number])
[2024-12-29 10:52] VITALS: BP 136/63; PULSE 71; BMI 26.0
== END 2024-12-29 11:08 | disposition home or self-care (01) ==
LOC: HO.HGS 10:44
PROVIDERS: PCP Internal Medicine; Referring Provider Internal Medicine; Visit Provider Surgery
DX: M67.40 Ganglion, unspecified site (principal)
CPT/HCPCS: 10021; 99203

== ENCOUNTER → 2024-12-29 10:43 | Outpatient (BNVA) | payer MEDICARE, SELFPAY | PROVIDERS: PCP Internal Medicine; Referring Provider Internal Medicine; Visit Provider Surgery | DX: M67.411 Ganglion, right shoulder (principal) | CPT/HCPCS: 10021; 99202 ==

== ENCOUNTER 2025-01-13 10:21 | Outpatient (AMB) | payer MEDICARE, SELFPAY ==
[2025-01-13 10:32] VITALS: BP 114/76; PULSE 88; TEMP 36.6; O2SAT 97; BMI 25.8
--- NOTE | 2025-01-13 10:32 | AM.OFFWIN_ITS ---
Intake Vital Signs 01/13/25 10:32 Height 5 ft 7 in Weight 165 lb BMI 25.8 BP 114/76 Blood Pressure Location Lt brachial Position Sitting Pulse 88 Pulse Source Pulse Oximeter Temp 97.9 F Temp Source Oral Pulse Oximetry (%) 97 Oxygen Delivery Method Room Air Intake Visit Reasons: EP-whole body poison shanti Intake Note: pt presents poison shanti rash to arms, hands, waist and chin- is spreading. rash appeared 2 days ago Patient Tobacco Use Status: Never used Tobacco Allergies No Known Allergies Allergy (Verified 01/13/25 10:36) Do you need a note to return to daycare/school/sports/work: No HPI HPI Comments History of Present Illness Details 69 y/o Male patient who presents to the walk in clinic with c/o Rash on his Upper extremities, Neck and Groin for 2 days. Reports very Itchy rash, burning, and Red. 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 Reports that he was wearing Long-sleeve Shirt and Long Pants - He also removed the clothing right away and took a shower immediately. He has been using Calamine Lotion with minimal relief. Denies any changes to his Detergent, Cosmetic products, Bath soap or Foods. Denies any allergies. [facility] Medical History (Updated 01/13/25 @ 10:50 by Mandi Nance NP) Rash and nonspecific skin eruption Ganglion cyst Rib pain Palpitations Benign skin cyst Sleep apnea Hyperlipidemia Surgical History History of colonoscopy Left knee injury Right shoulder injury H/O splenectomy No pertinent past surgical history Family History Brother Substance use disorder Social History Housing: House Patient Tobacco Use Status: Never used Tobacco e-Cigarette/Vaping Use: Never Used service: No Current occupational status: employed Cognitive needs: No Hearing needs: No Vision needs: Yes Review of Systems Const All systems reviewed & are unremarkable except as noted in HPI and below Physical Exam Vital Signs: Last Vital Signs Temp 97.9 F 01/13/25 10:32 Pulse 88 01/13/25 10:32 BP 114/76 01/13/25 10:32 Pulse Ox 97 01/13/25 10:32 Oxygen Delivery Method Room Air 01/13/25 10:32 BMI result Body Mass Index 25.8 Const General: no acute distress; No comfortable Nutritional Appearance: well nourished Orientation/consciousness: patient oriented x3 Skin General skin exam: dry skin and erythema Rashes: rashes noted (Erythematous Hives covering Upper Arms, Neck and Groin. ) Neuro General: patient oriented x3, gait normal and moves all extremities Psych Speech and movement: Normal speech and movement present Assessment & Plan Assessment & Plan (1) Rash and nonspecific skin eruption: Code(s): R21 - Rash and other nonspecific skin eruption Plan: DDx's: Allergic Dermatitis vs Poison Shanti vs Eczema Ordered Oral and Topical Prednisone. Ordered Hydroxyzine TID for Itch relief. Medications: New prednisone 50 mg PO DAILY 5 tabs 0RF 5 days R21 - Rash and other nonspecific skin eruption hydroxyzine HCl 25 mg PO TID 30 tabs 0RF itching R21 - Rash and other nonspecific skin eruption triamcinolone acetonide 0.1% 1 appl topical BID 80 grams 0RF 7 days R21 - Rash and other nonspecific skin eruption Coding Level of Care Code Est Pt Level 4 (86653) Diagnoses Rash and nonspecific skin eruption R21 Time Spent (min) 20
== END 2025-01-13 10:55 | disposition home or self-care (01) ==
PROVIDERS: PCP Internal Medicine; Visit Provider Nurse Practitioner Family
DX: R21 Rash and other nonspecific skin eruption (principal)

== ENCOUNTER → 2025-01-13 10:21 | Outpatient (BNVA) | payer MEDICARE, SELFPAY | PROVIDERS: PCP Internal Medicine; Visit Provider Nurse Practitioner Family | DX: R21 Rash and other nonspecific skin eruption (principal) | CPT/HCPCS: 99212 ==